=== PATIENT | male | born 1935 | race Caucasian/White ===

== ENCOUNTER 2017-04-15 00:19 | Inpatient (IN) | payer OTHER ==
--- NOTE | 2017-04-15 00:37 | PDOC ---
History of Present Illness - General History Source: Patient Exam Limitations: No Limitations - History of Present Illness Initial Comments: 04/15/17 01:46 The patient is a 82 year old male with no significant PMH who was sent to the emergency department by Marcelle blancas/maria del rosario falling out of his wheelchair at 6PM yesterday with a left hip fracture shown on xray. The patient denies any pain at presentation. The patient states he does not recall falling. The patient reports eating normally yesterday. The patient denies chest pain, shortness of breath, headache and dizziness. Denies fever, chills, nausea, vomit, diarrhea and constipation. Denies dysuria, frequency, urgency and hematuria. Allergies: NKA Past surgical history: None reported. Social history: No reported alcohol, drug, or cigarette use. PCP: Baldo Braga <Janett London - Last Filed: 04/15/17 01:46> <Socorro Martinez - Last Filed: 04/15/17 07:11> - General Chief Complaint: Injury Stated Complaint: FALL Time Seen by Provider: 04/15/17 00:27 Past History <Janett London - Last Filed: 04/15/17 01:46> <Socorro Martinez - Last Filed: 04/15/17 07:11> - Past Medical History Allergies/Adverse Reactions: Allergies Allergy/AdvReac Type Severity Reaction Status Date / Time No Known Allergies Allergy Verified 04/15/17 00:35 Home Medications: Ambulatory Orders Ascorbic Acid [Vitamin C] 500 mg PO DAILY 04/15/17 Aspirin 81 mg PO DAILY 04/15/17 Bupropion HCl [Bupropion HCl Sr] 150 mg PO DAILY 04/15/17 Cyanocobalamin [Vitamin B12 -] 1 tab PO DAILY 04/15/17 Duloxetine HCl 20 mg PO HS 04/15/17 Furosemide [Lasix -] 40 mg PO DAILY 04/15/17 Metoprolol Succinate 50 mg PO DAILY 04/15/17 Sennosides [Senna] 2 tab PO HS 04/15/17 Zinc Sulfate 220 mg PO DAILY 04/15/17 Review of Systems - Review of Systems Able to Perform ROS?: Yes Comments:: 04/15/17 01:47 GENERAL/CONSTITUTIONAL: No fever or chills. No weakness. HEAD, EYES, EARS, NOSE AND THROAT: No change in vision. No ear pain or discharge. No sore throat. CARDIOVASCULAR: No chest pain or shortness of breath. RESPIRATORY: No cough, wheezing, or hemoptysis. GASTROINTESTINAL: No nausea, vomiting, diarrhea or constipation. GENITOURINARY: No dysuria, frequency, or change in urination. MUSCULOSKELETAL: No joint or muscle swelling or pain. No neck or back pain. SKIN: No rash NEUROLOGIC: No headache, vertigo, loss of consciousness, or change in strength/ sensation. ENDOCRINE: No increased thirst. No abnormal weight change. HEMATOLOGIC/LYMPHATIC: No anemia, easy bleeding, or history of blood clots. ALLERGIC/IMMUNOLOGIC: No hives or skin allergy. <Janett London - Last Filed: 04/15/17 01:46> *Physical Exam - Vital Signs Last Vital Signs Temp Pulse Resp BP Pulse Ox 97.6 F 82 20 116/54 100 04/15/17 00:35 04/15/17 00:35 04/15/17 00:35 04/15/17 00:35 04/15/17 00:35 - Physical Exam Comments: 04/15/17 01:47 GENERAL: Awake, alert, and fully oriented, in no acute distress HEAD: No signs of trauma EYES: PERRLA, EOMI, sclera anicteric, conjunctiva clear ENT: Auricles normal inspection, hearing grossly normal, nares patent, oropharynx clear without exudates. Moist mucosa NECK: Normal ROM, supple, no lymphadenopathy, JVD, or masses LUNGS: Breath sounds equal, clear to auscultation bilaterally. No wheezes, and no crackles HEART: Regular rate and rhythm, normal S1 and S2, no murmurs, rubs or gallops ABDOMEN: Soft, nontender, normoactive bowel sounds. No guarding, no rebound. No masses EXTREMITIES: (+) Left hip tenderness. Normal range of motion, no edema. No clubbing or cyanosis. No cords or erythema. NEUROLOGICAL: Cranial nerves II through XII grossly intact. Normal speech, normal gait SKIN: Warm, Dry, normal turgor, no rashes or lesions noted. <Janett London - Last Filed: 04/15/17 01:46> ED Treatment Course - LABORATORY CBC & Chemistry Diagram: 04/15/17 01:09 04/15/17 01:09 - ADDITIONAL ORDERS Additional order review: Laboratory Results 04/15/17 01:09 PT with INR 13.40 H INR 1.19 H 04/15/17 01:09 RBC 2.71 L MCV 91.1 MCHC 31.7 L RDW 17.3 H MPV 7.7 Neutrophils % 78.8 Lymphocytes % 15.0 Monocytes % 5.0 Eosinophils % 0.2 Basophils % 1.0 <Janett London - Last Filed: 04/15/17 01:46> - LABORATORY CBC & Chemistry Diagram: 04/15/17 01:09 04/15/17 01:09 <Socorro Martinez - Last Filed: 04/15/17 07:11> Medical Decision Making - Medical Decision Making 04/15/17 01:26 Pt comes with left hip fracture at [facility], after falling out of the wheelchair. 04/15/17 07:10 Pt has a left hip fracture. He has anemia; we have no baseline for the patient. Pt has no other complaints. Pt will be admitted to the hospitalists. <Socorro Martinez - Last Filed: 04/15/17 07:11> *DC/Admit/Observation/Transfer - Attestations Scribe Attestion: 04/15/17 01:48 Documentation prepared by Janett London, acting as medical dir for Socorro Martinez MD. <Janett London - Last Filed: 04/15/17 01:46> - Discharge Dispostion Admit: Yes <Socorro Martinez - Last Filed: 04/15/17 07:11> Diagnosis at time of Disposition: Anemia, Hypokalemia, Hip fracture - Discharge Dispostion Condition at time of disposition: Poor
[2017-04-15 01:22] LABS: EOS % 0.2 % (0-4.5); HEMATOCRIT 24.7 % (35.4-49); HEMOGLOBIN 7.8 GM/dL (11.7-16.9); MCH 28.9 pg (25.7-33.7); MCHC 31.7 g/dl (32.0-35.9); MEAN CELL VOLUME 91.1 fl (80-96); MEAN PLT VOLUME 7.7 fl (7.5-11.1); NEUT % 78.8 % (42.8-82.8); PLATELET COUNT 414 K/MM3 (134-434); RBC 2.71 M/mm3 (4.00-5.60); RDW 17.3 % (11.9-15.9); WHITE BLOOD COUNT 13.9 K/mm3 (4.0-10.0)
[2017-04-15 01:33] LABS: INR 1.19 (0.82-1.09); PROTHROMBIN TIME (PATIENT) 13.4 SEC (9.98-11.88)
[2017-04-15 01:59] LABS: ALBUMIN 2.9 g/dl (3.4-5.0); ANION GAP 15 (8-16); BILIRUBIN,TOTAL 0.6 mg/dL (0.2-1.0); BLOOD UREA NITROGEN 26 mg/dL (7-18); CALCIUM 8.9 mg/dL (8.5-10.1); CHLORIDE 105 mmol/L (98-107); CO2 19 mmol/L (21-32); CREATININE 1.1 mg/dL (0.7-1.3); GLUCOSE,RANDOM 101 mg/dL (74-106); POTASSIUM 3.2 mmol/L (3.5-5.1); SGOT/AST 10 U/L (15-37); SGPT/ALT 13 U/L (12-78); SODIUM 139 mmol/L (136-145)
[2017-04-15 02:00] LABS: ALK PHOS 77 U/L (45-117); TOT PROT 6.3 g/dl (6.4-8.2)
[2017-04-15] MEDS ORDERED: SODIUM CHLORIDE 0.9% 500 ML INFUS.BAG IV ONE (02:07)
[2017-04-15] MEDS ORDERED: POTASSIUM CHLORIDE TABS 20 MEQ TABLET.ER (FP) PO ONE ×2 (02:08→02:15)
[2017-04-15] MEDS ORDERED: MAGNESIUM SULF 50% (8.12 MEQ/2 ML-1 GM VIAL) IVPB ONE (02:08)
[2017-04-15] MEDS ORDERED: MAGNESIUM SULF 50% (8.12 MEQ/2 ML-1 GM VIAL) ONE (02:16)
--- NOTE | 2017-04-15 03:41 | HP ---
Admitting History and Physical - Primary Care Physician PCP: Baldo Brown - Admission Chief Complaint: Fall, L- Hip pain History of Present Illness: This is a 82 y/o man from the [facility] to the ED with s/p fall out of wheelchair yesterday 1800. Patient has Dementia, unable to provide HPI. Patient had no complaints, earlier, now mild diffuse discomfort increased on movement. Patient denies fever, cough, SOB, CP, AP, N/V/D, constipation. Patient will be admitted to M/S Acute Left Femoral Intertrochanteric Fracture. 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 Cardiovascular: Yes: CAD, HTN, Hyperlipdemia, Other (Cardiomyopathy) Pulmonary: No: Asthma, Bronchitis, Cancer, COPD, O2 Dependent, Pneumonia, Previously Intubated, Pulmonary Embolus, Pulmonary Fibrosis, Sleep Apnea, Other Gastrointestinal: No: Ascites, Cancer, Constipation, Crohn's Disease, Diverticulitis, Diverticulosis, Esophageal Varices, Gastritis, GERD, GI Bleed, Hemorrhoids, Hiatal Hernia, Inflamatory Bowel Disease, Irritable Bowel Disease, Pancreatitis, Peptic Ulcer Disease, Ulcerative Colitis, Other Hepatobiliary: No: Cirrhosis, Cholelithiasis, Cholecystitis, Choledocholithiasis , Hepatitis A, Hepatitis B, Hepatitis C, Other Renal/: No: Renal Failure, Renal Inusuff, BPH, Cancer, Hematuria, Hemodialysis , Neurogenic Bladder, Renal Calculi, UTI, Other Heme/Onc: No: Anemia, B12 Deficiency, Bleeding Disorder, Cancer, Current Chemotherapy, Current Radiation Therapy, Hemochromatosis, Hypercoaguable State, Myeloproliferative Synd, Sickle Cell Disease, Sickle Cell Trait, Thrombocytopenia, Other Infectious Disease: No: AIDS, C-Diff, Herpes Zoster, HIV, MRSA, STD's, Tuberculosis, VREF, Other Psych: Yes: Depression Musculoskeletal: Yes: Other Rheumatology: No: Fibromyalgia, Gout, Lupus, Rheumatoid Arthritis, Sarcoidosis, Vasculitis, Other ENT: No: Allergic Rhinitis, Sinusitis, Other Endocrine: Yes: Diabetes Mellitus Dermatology: No: Basal Cell, Cellulitis, Eczema, Melanoma, Psoriasis, Squamous Cell, Other - Past Surgical History Past Surgical History: Yes: Joint Replacement (Right Hip Pinning) - Advance Directives Advance Directives: Yes: Living Will, Health Care Proxy, DNR (DNI), MOLST - Smoking History Smoking history: Never smoked Have you smoked in the past 12 months: No - Alcohol/Substance Use Hx Alcohol Use: No History of Substance Use: reports: None - Social History Usual Living Arrangement: Yes: Custodial ADL: Support Services 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: No Home Medications - Allergies Allergies/Adverse Reactions: Allergies Allergy/AdvReac Type Severity Reaction Status Date / Time No Known Allergies Allergy Verified 04/15/17 00:35 - Home Medications Home Medications: Ambulatory Orders Ascorbic Acid [Vitamin C] 500 mg PO DAILY 04/15/17 Aspirin 81 mg PO DAILY 04/15/17 Bupropion HCl [Bupropion HCl Sr] 150 mg PO DAILY 04/15/17 Cyanocobalamin [Vitamin B12 -] 1 tab PO DAILY 04/15/17 Duloxetine HCl 20 mg PO HS 04/15/17 Furosemide [Lasix -] 40 mg PO DAILY 04/15/17 Metoprolol Succinate 50 mg PO DAILY 04/15/17 Sennosides [Senna] 2 tab PO HS 04/15/17 Zinc Sulfate 220 mg PO DAILY 04/15/17 Family Disease History - Family Disease History Family History: Unable to Obtain Review of Systems Unable to obtain ROS, reason: Dementia Hx Physical Examination Vital Signs: Vital Signs Temperature 97.6 F 04/15/17 00:35 Pulse Rate 86 04/15/17 01:58 Respiratory Rate 20 04/15/17 00:35 Blood Pressure 122/88 04/15/17 01:58 O2 Sat by Pulse Oximetry (%) 96 04/15/17 01:58 Constitutional: Yes: No Distress, Calm, Thin Eyes: Yes: WNL, Conjunctiva Clear, EOM Intact, PERRL HENT: Yes: WNL, Atraumatic, Normocephalic Neck: Yes: WNL, Supple, Trachea Midline Cardiovascular: Yes: WNL, Regular Rate and Rhythm, S1, S2 Respiratory: Yes: WNL, Regular, CTA Bilaterally Gastrointestinal: Yes: WNL, Normal Bowel Sounds, Soft Renal/: Yes: Incontinence Breast(s): Yes: WNL Musculoskeletal: Yes: Other (Left Hip pain to palpation/movement) Extremities: Yes: Deformity (Left Hip) Edema: No Peripheral Pulses WNL: Yes Integumentary: Yes: WNL Neurological: Yes: Alert, Confusion, Cran Nerves II-XII Intact ...Motor Strength: WNL Psychiatric: Yes: WNL, Alert Labs: CBC, BMP 04/15/17 01:09 04/15/17 01:09 Intake & Output 04/12/17 04/13/17 04/14/17 04/15/17 23:59 23:59 23:59 23:59 Weight 65.771 kg Imaging - Results Chest X-ray: Pending X-ray: Report Reviewed (Acute left femoral intertrochanteric fracture with varus deformity) EKG: Image Reviewed (NSR 86bpm, inferior posterior infarct age undetermined) Problem List - Problems (1) Hip fracture Code(s): S72.009A - FRACTURE OF UNSP PART OF NECK OF UNSP FEMUR, INIT (2) Hypokalemia Code(s): E87.6 - HYPOKALEMIA (3) Anemia Code(s): D64.9 - ANEMIA, UNSPECIFIED (4) Diabetes mellitus Code(s): E11.9 - TYPE 2 DIABETES MELLITUS WITHOUT COMPLICATIONS (5) CAD (coronary artery disease) Code(s): I25.10 - ATHSCL HEART DISEASE OF [place] CORONARY ARTERY W/O ANG PCTRS (6) HLD (hyperlipidemia) Code(s): E78.5 - HYPERLIPIDEMIA, UNSPECIFIED (7) Dementia Code(s): F03.90 - UNSPECIFIED DEMENTIA WITHOUT BEHAVIORAL DISTURBANCE (8) DVT prophylaxis Code(s): [id number] - Assessment/Plan This is a 82 y/o man with a past medical history of HTN. Admitted to M/S for Left Hip Fracture, Hypokalemia, Anemia. Plan: 1. Left Hip Fracture - secondary to fall out of wheelchair - L Hip Xay- Left femoral neck fx - Appreciate Ortho Consult - keep NPO - Bedrest - Morphine Sulfate prn - No DVT prophylaxis secondary to active anemia 2. Hypokalemia - Repleted in ED - Repeat BMP in am 3. Anemia - ? baseline - Will transfuse if Hgb < 7.0 - FE, TIBC, Ferritin levels ordered - Stool Occult 4. Hypertension - Monitor BP - Continue BB with parameters 5. FEN - Po fluids as tolerated - Replete lytes - NPO 6. DVT Prophylaxis - SCDs - No ACs secondary to Anemia Code Status: MOLST, DNR/DNI, HCP, Living Will Dispo: Requires Inpatient Care Visit type - Emergency Visit Emergency Visit: Yes ED Registration Date: 04/15/17 Care time: The patient presented to the Emergency Department on the above date and was hospitalized for further evaluation of their emergent condition. - New Patient This patient is new to me today: Yes Date on this admission: 04/15/17 - Critical Care Critical Care patient: No
[2017-04-15 05:59] VITALS: BMI 20.2
[2017-04-15 08:19] LABS: BASO % 0.3 % (0-2.0); EOS % 0.1 % (0-4.5); HEMATOCRIT 23.6 % (35.4-49); HEMOGLOBIN 7.6 GM/dL (11.7-16.9); LYMPH % 13.2 % (8-40); MCH 29.4 pg (25.7-33.7); MCHC 32.2 g/dl (32.0-35.9); MEAN CELL VOLUME 91.3 fl (80-96); MEAN PLT VOLUME 7.7 fl (7.5-11.1); MONO % 4.9 % (3.8-10.2); NEUT % 81.5 % (42.8-82.8); PLATELET COUNT 384 K/MM3 (134-434); RBC 2.58 M/mm3 (4.00-5.60); RDW 17.2 % (11.9-15.9)
[2017-04-15 08:41] LABS: CHLORIDE 107 mmol/L (98-107); POTASSIUM 3.5 mmol/L (3.5-5.1); SODIUM 139 mmol/L (136-145)
[2017-04-15 08:53] LABS: ANION GAP 11 (8-16); BLOOD UREA NITROGEN 27 mg/dL (7-18); CALCIUM 8.9 mg/dL (8.5-10.1); CO2 21 mmol/L (21-32); GLUCOSE,RANDOM 125 mg/dL (74-106); MAGNESIUM 2.9 mg/dL (1.8-2.4); PHOSPHOROUS 4.1 mg/dL (2.5-4.9)
[2017-04-15] MEDS ORDERED: DEXTROSE 5%-0.45% SALINE 1,000 ML IV SCH (10:30)
[2017-04-15] MEDS: morphine SULFATE 4 MG/ML VIAL IVPUSH PRN ×2 (11:30→22:57)
[2017-04-15] MEDS ORDERED: D5-1/2NS+20 MEQ KCL - 20 MEQ/1,000 ML INFUS.BAG IV SCH (12:30)
--- NOTE | 2017-04-15 15:26 | PN ---
Progress Note (short form) - Note Progress Note: Consult dictated. Plan for IM nail when medically optimized. Transfusion pending, anticipate continued blood loss from femur fracture and then more blood loss during surgery.
[2017-04-15 16:38] LABS: URINE APPEARANCE SLCLOUDY; URINE BILIRUBIN NEGATIVE (NEGATIVE); URINE BLOOD 2+ (NEGATIVE); URINE COLOR YELLOW; URINE GLUCOSE (UA) NEGATIVE (NEGATIVE); URINE KETONE TRACE (NEGATIVE); URINE NITRITE NEGATIVE (NEGATIVE); URINE PROTEIN NEGATIVE (NEGATIVE); URINE UROBILINOGEN NEGATIVE mg/dL (0.2-1.0)
--- NOTE | 2017-04-15 17:13 | EKG ---
Test Reason : Blood Pressure : / mmHG Vent. Rate : 086 BPM Atrial Rate : 086 BPM P-R Int : 168 ms QRS Dur : 112 ms QT Int : 486 ms P-R-T Axes : 022 092 -07 degrees QTc Int : 581 ms POOR DATA QUALITY, INTERPRETATION MAY BE ADVERSELY AFFECTED NORMAL SINUS RHYTHM RIGHTWARD AXIS POSSIBLE INFEROPOSTERIOR INFARCT , AGE UNDETERMINED ABNORMAL ECG NO PREVIOUS ECGS AVAILABLE Confirmed by DEBORA GUTIERREZ, MAURI ([id number]) on 04/15/2017 5:13:36 PM Referred By: Confirmed By:MAURI CAZARES MD
[2017-04-15 17:20] LABS: URINE LEUK ESTERASE 2+ (NEGATIVE)
[2017-04-15 17:22] LABS: EPI CELLS RARE /HPF (FEW); URINE BACTERIA FEW /hpf (NONE SEEN)
--- NOTE | 2017-04-15 19:51 | CON.CARD ---
Consult Consult Specialty:: Cardiology Referred by:: Janice Layne MD Reason for Consultation:: Pre-operative cardiovascular evaluation - History of Present Illness Chief Complaint: Post fall left hip discomfort History of Present Illness: This is a 82 y/o male resident of [facility] with h/o dementia, CAD, HTN, Hyperlipdemia, cardiomyopathy presented s/p fall out of wheelchair. Patient has Dementia, unable to provide HPI. Patient reports mild diffuse left hip discomfort increased on movement, found to have Acute Left Femoral Intertrochanteric Fracture, planned for left IM gamma nail. 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 Cardio/Vascular: Yes: CAD, HTN, Hyperlipdemia, Other (Cardiomyopathy) Pulmonary: No: Asthma, Bronchitis, Cancer, COPD, O2 Dependent, Pneumonia, Previously Intubated, Pulmonary Embolus, Pulmonary Fibrosis, Sleep Apnea, Other Gastrointestinal: No: Ascites, Cancer, Constipation, Crohn's Disease, Diverticulitis, Diverticulosis, Esophageal Varices, Gastritis, GERD, GI Bleed, Hemorrhoids, Hiatal Hernia, Inflamatory Bowel Disease, Irritable Bowel Disease, Pancreatitis, Peptic Ulcer Disease, Ulcerative Colitis, Other Hepatobiliary: No: Cirrhosis, Cholelithiasis, Cholecystitis, Choledocholithiasis , Hepatitis A, Hepatitis B, Hepatitis C, Other Renal/: No: Renal Failure, Renal Inusuff, BPH, Cancer, Hematuria, Hemodialysis , Neurogenic Bladder, Renal Calculi, UTI, Other Infectious Disease: No: AIDS, C-Diff, Herpes Zoster, HIV, MRSA, STD's, Tuberculosis, VREF, Other Psych: Yes: Depression Musculoskeletal: Yes: Other Rheumatology: No: Fibromyalgia, Gout, Lupus, Rheumatoid Arthritis, Sarcoidosis, Vasculitis, Other ENT: No: Allergic Rhinitis, Sinusitis, Other Endocrine: Yes: Diabetes Mellitus Dermatology: No: Basal Cell, Cellulitis, Eczema, Melanoma, Psoriasis, Squamous Cell, Other - Past Surgical History Past Surgical History: Yes: Joint Replacement (Right Hip Pinning) - Alcohol/Substance Use Hx Alcohol Use: No History of Substance Use: reports: None - Smoking History Smoking history: Never smoked Have you smoked in the past 12 months: No - Social History ADL: Support Services 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: No Home Medications - Allergies Allergies/Adverse Reactions: Allergies Allergy/AdvReac Type Severity Reaction Status Date / Time No Known Allergies Allergy Verified 04/15/17 00:35 - Home Medications Home Medications: Ambulatory Orders Ascorbic Acid [Vitamin C] 500 mg PO DAILY 04/15/17 Aspirin 81 mg PO DAILY 04/15/17 Bupropion HCl [Bupropion HCl Sr] 150 mg PO DAILY 04/15/17 Cyanocobalamin [Vitamin B12 -] 1 tab PO DAILY 04/15/17 Duloxetine HCl 20 mg PO HS 04/15/17 Furosemide [Lasix -] 40 mg PO DAILY 04/15/17 Metoprolol Succinate 50 mg PO DAILY 04/15/17 Sennosides [Senna] 2 tab PO HS 04/15/17 Zinc Sulfate 220 mg PO DAILY 04/15/17 Review of Systems Unable to obtain ROS, reason: Dementia Vital Signs: Vital Signs Temperature 97.3 F L 04/15/17 08:57 Pulse Rate 84 04/15/17 08:57 Respiratory Rate 18 04/15/17 08:57 Blood Pressure 113/62 04/15/17 08:57 O2 Sat by Pulse Oximetry (%) 100 04/15/17 09:00 Constitutional: Yes: No Distress, Calm Neck: Yes: Supple Respiratory: Yes: Regular, Diminished Gastrointestinal: Yes: Normal Bowel Sounds, Soft Cardiovascular: Yes: Regular Rate and Rhythm JVD: No Carotid Bruit: No Heart Sounds: Yes: S1, S2 Edema: No - Other Data Labs, Other Data: CBC, BMP 04/15/17 06:50 04/15/17 06:50 INR, PTT INR 1.19 (0.82-1.09) H 04/15/17 01:09 NSR 86bpm, inferior posterior infarct age undetermined similar to previous 2016 Imaging - Results Chest X-ray: Report Reviewed (NAD) X-ray: Report Reviewed ( (Acute left femoral intertrochanteric fracture with varus deformity)) Problem List - Problems (1) Pre-operative cardiovascular examination Code(s): Z01.810 - ENCOUNTER FOR PREPROCEDURAL CARDIOVASCULAR EXAMINATION (2) Hypertensive cardiomyopathy Code(s): I11.9 - HYPERTENSIVE HEART DISEASE WITHOUT HEART FAILURE; I43 - CARDIOMYOPATHY IN DISEASES CLASSIFIED ELSEWHERE Qualifiers: Heart failure presence: without heart failure Qualified Code(s): I11.9 - Hypertensive heart disease without heart failure; I43 - Cardiomyopathy in diseases classified elsewhere; I43 - Cardiomyopathy in diseases classified elsewhere; I43 - Cardiomyopathy in diseases classified elsewhere; I43 - Cardiomyopathy in diseases classified elsewhere (3) Anemia Code(s): D64.9 - ANEMIA, UNSPECIFIED Qualifiers: Anemia type: unspecified type Qualified Code(s): D64.9 - Anemia, unspecified (4) CAD (coronary artery disease) Code(s): I25.10 - ATHSCL HEART DISEASE OF [place] CORONARY ARTERY W/O ANG PCTRS Qualifiers: Coronary Disease-Associated Artery/Lesion type: [place] artery [place] vs. transplanted heart: [place] heart Associated angina: without angina Qualified Code(s): I25.10 - Atherosclerotic heart disease of [place] coronary artery without angina pectoris (5) Dementia Code(s): F03.90 - UNSPECIFIED DEMENTIA WITHOUT BEHAVIORAL DISTURBANCE Qualifiers: Dementia type: unspecified type Dementia behavioral disturbance: without behavioral disturbance Qualified Code(s): F03.90 - Unspecified dementia without behavioral disturbance (6) Diabetes mellitus Code(s): E11.9 - TYPE 2 DIABETES MELLITUS WITHOUT COMPLICATIONS Qualifiers: Diabetes mellitus type: type 2 (7) HLD (hyperlipidemia) Code(s): E78.5 - HYPERLIPIDEMIA, UNSPECIFIED Qualifiers: Hyperlipidemia type: pure hypercholesterolemia Qualified Code(s): E78.00 - Pure hypercholesterolemia, unspecified; E78.0 - Pure hypercholesterolemia (8) Hip fracture Code(s): S72.009A - FRACTURE OF UNSP PART OF NECK OF UNSP FEMUR, INIT Qualifiers: Encounter type: initial encounter (9) Hypokalemia Code(s): E87.6 - HYPOKALEMIA Assessment/Plan 1. Pre-operative cardiovascular evaluation planned for left femoral IM nail 2. Anemia 3. Hypokalemia 4. HTN 5. CAD, angina pectoris 6. Hyperlipidemia 7. Dementia P:1. Transfuse to maintain Hgb>8.0 2. Replete K 3. Hold ASA 81 qd, continue Toprol XL 50 qd, Altace 2.5 qd, hold Lasix as hemodynamics tolerate 4. Given absence of sxs of acute coronary syndrome, decompensated CHF or malignant arrhythmia, may proceed with ORIF from CV standpoint without further testing 5. DVT prophylaxis, thank you for consultative opportunity
[2017-04-15] MEDS ORDERED: PT OWN MED DRAWER 7, Y5N ONE (21:54)
[2017-04-15] MEDS ORDERED: DULoxetine HCL 20 MG CAPSULE.DR (FP) PO SCH (22:00)
[2017-04-15] MEDS ORDERED: SENNOSIDES 8.6MG TABLET (FP) PO SCH (22:00)
--- NOTE | 2017-04-15 23:12 | CONS ---
DATE OF CONSULTATION: 04/15/2017 CHIEF COMPLAINT: Left hip fracture. HISTORY OF PRESENT ILLNESS: This is an 82-year-old gentleman who lives at [facility] who fell out of a wheelchair last evening. He was brought to the emergency room and was found to have a hip fracture. The patient, himself, does not recall the incident secondary to dementia. He is lying in bed now. He is complaining of some pain in the left hip. He denies any pain elsewhere. He denies any radiating pain, numbness, or tingling. PAST MEDICAL HISTORY: Includes dementia, CAD, hypertension, hyperlipidemia, cardiomyopathy, anemia of unknown duration. PHYSICAL EXAMINATION: General: This is an elderly male, in no acute distress. He is seen lying comfortably in bed. Extremities: The left lower extremity is shortened, externally rotated. He is tender about the hip joint. Nontender about the knee. Nontender about the ankle. Sensation is grossly intact to light touch, 1+ DP pulse. EHL, FHL, tibialis anterior, gastrocsoleus are intact, but weak. LABORATORY: Results are reviewed and revealed a hematocrit of 23.6. Radiographs are reviewed demonstrating a displaced left hip fracture. The fracture has a cervical component inferiorly and goes more towards the intertrochanteric pattern superiorly. There is a contralateral intramedullary nail in place. ASSESSMENT: Left hip fracture. PLAN: I reviewed the findings with the patient as best as he could understand. I also called his health care proxy, Mr. Batres, and reviewed the findings. We discussed this is similar to the last side, which he had several months ago. He now has a left hip fracture. I do believe this is best treated with intramedullary nail. We discussed that he is a fairly high risk patient for anesthesia. We would have him medically optimized prior to proceeding with the procedure; however, he is at risk for heart attack, stroke, and . We reviewed the procedure itself. I reviewed the postoperative rehabilitation protocol. I addressed all of the patient's and his proxy's concerns and questions. We reviewed the surgical risks in detail including bleeding, infection, neurovascular injury, need for further surgery, postoperative pain and stiffness, nonunion, malunion, hardware failure, or cut out. I reviewed the medical risks such as heart attack, stroke, DVT, PE, and . The proxy did consent to proceed with the procedure once medically optimized. Lisa [id number]
[2017-04-16 00:59] LABS: BASO % 0.2 % (0-2.0); EOS % 0.2 % (0-4.5); HEMATOCRIT 25.9 % (35.4-49); HEMOGLOBIN 8.3 GM/dL (11.7-16.9); LYMPH % 18.6 % (8-40); MCH 29.1 pg (25.7-33.7); MEAN CELL VOLUME 90.9 fl (80-96); MEAN PLT VOLUME 7.9 fl (7.5-11.1); MONO % 7.3 % (3.8-10.2); NEUT % 73.7 % (42.8-82.8); PLATELET COUNT 340 K/MM3 (134-434); RBC 2.85 M/mm3 (4.00-5.60); RDW 17.5 % (11.9-15.9)
[2017-04-16 06:11] LABS: SERUM IRON SATURATION 14 % (15-55); TOTAL IRON BINDING CAPACITY 161 ug/dL (250-450); UIBC 138 ug/dL (111-343)
[2017-04-16 07:57] LABS: ALBUMIN 2.7 g/dl (3.4-5.0); ANION GAP 10 (8-16); BILIRUBIN,TOTAL 0.5 mg/dL (0.2-1.0); BLOOD UREA NITROGEN 21 mg/dL (7-18); CALCIUM 8.5 mg/dL (8.5-10.1); CHLORIDE 109 mmol/L (98-107); CO2 21 mmol/L (21-32); CREATININE 0.9 mg/dL (0.7-1.3); GLUCOSE,RANDOM 145 mg/dL (74-106); SGPT/ALT 13 U/L (12-78); SODIUM 140 mmol/L (136-145); TOT PROT 6.2 g/dl (6.4-8.2)
[2017-04-16 08:02] LABS: ALK PHOS 70 U/L (45-117); SGOT/AST 15 U/L (15-37)
[2017-04-16] MEDS ORDERED: BUPIVACAINE HCL/PF 0.5% (5MG/ML) 10 ML VIAL ONE (08:57)
[2017-04-16] MEDS ORDERED: ETOMIDATE 20 MG/10 ML AMPUL IVPUSH ONE (09:31)
[2017-04-16] MEDS ORDERED: PROPOFOL 20 ML ONE ×2 (09:36)
[2017-04-16] MEDS ORDERED: ceFAZolin SODIUM 1 GM VIAL ONE (09:46)
[2017-04-16] MEDS ORDERED: ceFAZolin SODIUM 1 GM VIAL IVPB ONE (09:50)
[2017-04-16] MEDS ORDERED: FUROSEMIDE 40 MG TABLET (FP) PO SCH (10:00)
[2017-04-16] MEDS ORDERED: CYANOCOBALAMIN 1,000 MCG TABLET (FP) PO SCH (10:00)
[2017-04-16] MEDS ORDERED: ZINC SULFATE 220 MG CAPSULE (FP) PO SCH (10:00)
[2017-04-16] MEDS ORDERED: METOPROLOL SUCCINATE 50 MG TAB.SR.24H (FP) PO SCH (10:00)
[2017-04-16] MEDS ORDERED: METOPROLOL TARTRATE 5 MG/5 ML VIAL ONE (10:50)
--- NOTE | 2017-04-16 11:19 | OP ---
Operative Note - Note: Operative Date: 04/16/17 Pre-Operative Diagnosis: left hip basicervical/intertrochanteric fracture Operation: left hip cephalomedullary nail insertion Implants: goran gamma nail [id number] degree, [id number] proximal lag screw, 5mm x2 distal locking screws Post-Operative Diagnosis: Same as Pre-op Surgeon: Kin Lechuga Anesthesiologist/INTEGRATION TECHNICIAN: Monserrat Lopez Anesthesia: General Estimated Blood Loss (mls): 150 Operative Report Dictated: Yes
[2017-04-16] MEDS ORDERED: ONDANSETRON 4 MG/2 ML VIAL IVPUSH PRN (11:20)
[2017-04-16] MEDS ORDERED: morphine SULFATE 4 MG/ML VIAL IVPUSH PRN (11:26)
[2017-04-16] MEDS ORDERED: LACTATED RINGERS SOLUTION 1,000 ML IV SCH (11:30)
[2017-04-16] MEDS: D5-1/2NS+20 MEQ KCL - 20 MEQ/1,000 ML INFUS.BAG IV SCH ×2 (11:45→22:32)
[2017-04-16 12:30] LABS: BASO % 0.3 % (0-2.0); EOS % 0.2 % (0-4.5); HEMATOCRIT 27.9 % (35.4-49); HEMOGLOBIN 8.4 GM/dL (11.7-16.9); LYMPH % 12.7 % (8-40); MCH 28.5 pg (25.7-33.7); MCHC 30.3 g/dl (32.0-35.9); MEAN CELL VOLUME 94.1 fl (80-96); MEAN PLT VOLUME 7.7 fl (7.5-11.1); MONO % 7.3 % (3.8-10.2); NEUT % 79.5 % (42.8-82.8); PLATELET COUNT 329 K/MM3 (134-434); RBC 2.96 M/mm3 (4.00-5.60); RDW 18.1 % (11.9-15.9); WHITE BLOOD COUNT 15.6 K/mm3 (4.0-10.0)
[2017-04-16] MEDS ORDERED: CEFTRIAXONE 500 MG in DEXTROSE 5%-WATER - 50 ML IVPB SCH (12:45)
--- NOTE | 2017-04-16 13:07 | PN ---
Progress Note (short form) - Note Progress Note: just came back from or comfortable chart reviewed Vital Signs Temp 97.5 F L 04/16/17 12:30 Pulse 90 04/16/17 12:30 Resp 18 04/16/17 12:30 BP 108/56 04/16/17 12:30 Pulse Ox 100 04/16/17 12:30 Intake & Output 04/15/17 04/16/17 04/16/17 23:59 11:59 23:59 Intake Total 960 1300 Balance 960 1300 Intake: IV 600 1300 D5-1/2NS+20 MEQ KCL - 20 600 1100 meq In 1,000 ml @ 100 mls /hr IV ASDIR [facility] Rx#: [id number] IVPB 20 [place]acked [place] 340 Other: Voiding Method Incontinent Incontinent # Unmeasured Voids Void 1 Active Medications Bupropion HCl (Wellbutrin Xl -) 150 mg PO DAILY [facility] Calcium Carbonate/Cholecalciferol (Os-Tab 500+D -) 1 tab PO BID [facility] Cyanocobalamin (Vitamin B12 -) 1,000 mcg PO DAILY [facility] Duloxetine HCl (Cymbalta -) 20 mg PO HS [facility] Enoxaparin Sodium (Lovenox -) 40 mg SQ DAILY [facility] Ferrous Sulfate (Feosol -) 325 mg PO BIDWM [facility] Potassium Chloride/Dextrose/Sod Cl (D5-1/2ns+20 Meq Kcl -) 20 meq in 1,000 mls @ 100 mls/hr IV ASDIR [facility] Last Admin: 04/16/17 11:45 Dose: 100 mls Cefazolin Sodium (Ancef -) 1 gm in 10 mls @ 120 mls/hr IVPUSH Q8H-IV [facility] Stop: 04/17/17 17:59 Metoprolol Succinate (Toprol Xl -) 50 mg PO DAILY [facility] Morphine Sulfate (Morphine Sulfate) 1 mg IVPUSH Q4H PRN PRN Reason: PAIN Ondansetron HCl (Zofran Injection) 4 mg IVPUSH Q6H PRN PRN Reason: NAUSEA AND/OR VOMITING Senna (Senna -) 2 tab PO HS [facility] Zinc Sulfate (Orazinc -) 220 mg PO DAILY [facility] CBC, BMP 04/16/17 12:26 04/16/17 06:00 u/a - noted u/c - pending Physical Examination awake/ comfortable poor historian lungs- clear cvs- s1, s2 rrr abd - soft ext- dressing + a/p s/p left gamma nailing continue present care u/c pending on ancef f/u labs will follow Problem List - Problems (1) Anemia Code(s): D64.9 - ANEMIA, UNSPECIFIED Qualifiers: Anemia type: unspecified type Qualified Code(s): D64.9 - Anemia, unspecified (2) CAD (coronary artery disease) Code(s): I25.10 - ATHSCL HEART DISEASE OF [place] CORONARY ARTERY W/O ANG PCTRS Qualifiers: Coronary Disease-Associated Artery/Lesion type: [place] artery [place] vs. transplanted heart: [place] heart Associated angina: without angina Qualified Code(s): I25.10 - Atherosclerotic heart disease of [place] coronary artery without angina pectoris (3) Dementia Code(s): F03.90 - UNSPECIFIED DEMENTIA WITHOUT BEHAVIORAL DISTURBANCE Qualifiers: Dementia type: unspecified type Dementia behavioral disturbance: without behavioral disturbance Qualified Code(s): F03.90 - Unspecified dementia without behavioral disturbance (4) Diabetes mellitus Code(s): E11.9 - TYPE 2 DIABETES MELLITUS WITHOUT COMPLICATIONS Qualifiers: Diabetes mellitus type: type 2 (5) Hip fracture Code(s): S72.009A - FRACTURE OF UNSP PART OF NECK OF UNSP FEMUR, INIT Qualifiers: Encounter type: initial encounter
--- NOTE | 2017-04-16 14:27 | PN ---
Progress Note, Physician History of Present Illness: s/p left hip IM gamma nail without clinical sequelae. - Current Medication List Current Medications: Active Medications Bupropion HCl (Wellbutrin Xl -) 150 mg PO DAILY [facility] Calcium Carbonate/Cholecalciferol (Os-Tab 500+D -) 1 tab PO BID [facility] Cyanocobalamin (Vitamin B12 -) 1,000 mcg PO DAILY [facility] Duloxetine HCl (Cymbalta -) 20 mg PO HS [facility] Enoxaparin Sodium (Lovenox -) 40 mg SQ DAILY [facility] Ferrous Sulfate (Feosol -) 325 mg PO BIDWM [facility] Potassium Chloride/Dextrose/Sod Cl (D5-1/2ns+20 Meq Kcl -) 20 meq in 1,000 mls @ 100 mls/hr IV [facility]IR [facility] Last Admin: 04/16/17 11:45 Dose: 100 mls Cefazolin Sodium (Ancef -) 1 gm in 10 mls @ 120 mls/hr IVPUSH Q8H-IV [facility] Stop: 04/17/17 17:59 Metoprolol Succinate (Toprol Xl -) 50 mg PO DAILY [facility] Morphine Sulfate (Morphine Sulfate) 1 mg IVPUSH Q4H PRN PRN Reason: PAIN Ondansetron HCl (Zofran Injection) 4 mg IVPUSH Q6H PRN PRN Reason: NAUSEA AND/OR VOMITING Senna (Senna -) 2 tab PO HS [facility] Zinc Sulfate (Orazinc -) 220 mg PO DAILY [facility] - Objective Vital Signs: Vital Signs Temperature 97.5 F L 04/16/17 12:30 Pulse Rate 92 H 04/16/17 13:31 Respiratory Rate 18 04/16/17 13:31 Blood Pressure 97/57 04/16/17 13:31 O2 Sat by Pulse Oximetry (%) 100 04/16/17 12:30 Constitutional: Yes: No Distress, Calm, Thin Neck: Yes: Supple Cardiovascular: Yes: Regular Rate and Rhythm Respiratory: Yes: Regular, Diminished Gastrointestinal: Yes: Soft, Hypoactive Bowel Sounds Edema: No Labs: CBC, BMP 04/16/17 12:26 04/16/17 06:00 INR, PTT INR 1.19 (0.82-1.09) H 04/15/17 01:09 Problem List - Problems (1) Hypertensive cardiomyopathy Code(s): I11.9 - HYPERTENSIVE HEART DISEASE WITHOUT HEART FAILURE; I43 - CARDIOMYOPATHY IN DISEASES CLASSIFIED ELSEWHERE Qualifiers: Heart failure presence: without heart failure Qualified Code(s): I11.9 - Hypertensive heart disease without heart failure; I43 - Cardiomyopathy in diseases classified elsewhere; I43 - Cardiomyopathy in diseases classified elsewhere; I43 - Cardiomyopathy in diseases classified elsewhere; I43 - Cardiomyopathy in diseases classified elsewhere (2) Anemia Code(s): D64.9 - ANEMIA, UNSPECIFIED Qualifiers: Anemia type: unspecified type Qualified Code(s): D64.9 - Anemia, unspecified (3) CAD (coronary artery disease) Code(s): I25.10 - ATHSCL HEART DISEASE OF [place] CORONARY ARTERY W/O ANG PCTRS Qualifiers: Coronary Disease-Associated Artery/Lesion type: [place] artery [place] vs. transplanted heart: [place] heart Associated angina: without angina Qualified Code(s): I25.10 - Atherosclerotic heart disease of [place] coronary artery without angina pectoris (4) Dementia Code(s): F03.90 - UNSPECIFIED DEMENTIA WITHOUT BEHAVIORAL DISTURBANCE Qualifiers: Dementia type: unspecified type Dementia behavioral disturbance: without behavioral disturbance Qualified Code(s): F03.90 - Unspecified dementia without behavioral disturbance (5) Diabetes mellitus Code(s): E11.9 - TYPE 2 DIABETES MELLITUS WITHOUT COMPLICATIONS Qualifiers: Diabetes mellitus type: type 2 (6) HLD (hyperlipidemia) Code(s): E78.5 - HYPERLIPIDEMIA, UNSPECIFIED Qualifiers: Hyperlipidemia type: pure hypercholesterolemia Qualified Code(s): E78.00 - Pure hypercholesterolemia, unspecified; E78.0 - Pure hypercholesterolemia (7) Hip fracture Code(s): S72.009A - FRACTURE OF UNSP PART OF NECK OF UNSP FEMUR, INIT Qualifiers: Encounter type: initial encounter Assessment/Plan 1. POD#0 left hip IM nail 2. Anemia 3. Hypokalemia resolved 4. HTN 5. CAD, angina pectoris 6. Hyperlipidemia 7. Dementia P:1. Transfuse to maintain Hgb>8.0 2. Resume ASA 81 qd once post-op hemostasis assured, continue Toprol XL 50 qd, Altace 2.5 qd, hold Lasix as hemodynamics tolerate 3. Analgesia as needed 4. DVT prophylaxis
--- NOTE | 2017-04-16 15:54 | OP ---
DATE OF OPERATION: 04/16/2017 PREOPERATIVE DIAGNOSIS: Left intertrochanteric/basicervical hip fracture. POSTOPERATIVE DIAGNOSIS: Left intertrochanteric/basicervical hip fracture. PROCEDURE: Left hip intramedullary nail. SURGEON: Kin Lechuga MD ANESTHESIA: General. POSTOPERATIVE CONDITION: Stable. COMPLICATIONS: None. IMPLANTS: [place] Gamma nail 420-mm length x 10 with 125-degree neck angle, 105 -mm proximal lag screw, 5-mm distal locking screws x2. INDICATIONS: This is a pleasant elderly gentleman with dementia who was unable to describe a mechanism of injury. He had fallen out of a wheelchair and was found to have a left hip fracture. He had previously undergone fixation of a right hip fracture. I reviewed the findings with the patient as well as the healthcare proxy. I recommended fixation to allow for early mobilization, pain management. We discussed operative risks in detail including bleeding, infection, neurovascular injury, need for further surgery, postoperative pain and stiffness, nonunion, malunion, hardware failure or cutout. We discussed medical risks such as heart attack, stroke, DVT, PE, . I addressed the use of perioperative antibiotic prophylaxis. I discussed the use of perioperative DVT prophylaxis. I addressed all the patient's healthcare proxy's questions. They voiced understanding and elected to proceed. PROCEDURE: The patient was brought to the operating room where general anesthesia was administered. The patient was placed onto the fracture table, taking care to pad the bony prominences. He was noted to have some early changes in the sacral decubitus region. There were no full thickness ulcers noted. The left lower extremity was then placed into position of traction, adduction and internal rotation. The right lower extremity had to be placed in the scissor position as he was not able to abduct or rotate with much range of motion. The patient was then prepped and draped in the usual sterile fashion. A preoperative dose of antibiotics was given and the usual time-out procedure was performed. An incision was now planned out just proximal to the greater trochanter. A stab wound was made using a 10 blade. Guidewire was now placed down through the tip of the greater trochanter into the medullary canal. Guidewire placement was confirmed fluoroscopically in 2 planes. An opening reamer was now passed down to the level of the lesser trochanter. The long guidewire was now inserted through this opening. The wire was inserted down to the level of the distal physeal scar as visualized on 2-plane fluoroscopy. The guidewire was now measured and a 420-mm nail was chosen. Given the wide diameter of the canal, it was felt that reaming was not necessary for this case. The nail was then inserted under fluoroscopic guidance to the correct position. The trocar was now inserted through the jig proximally where incision was made and the trocar was passed down to the level of the lateral femoral cortex. A guidewire was now passed through the center of the femoral neck into the center of the femoral head as confirmed fluoroscopically in 2 planes. The guidewire was measured and a 105-mm proximal lag screw was chosen. This was then reamed. The lag screw was inserted again under fluoroscopic guidance into satisfactory position. Compression was applied along the screw. The set screw was now inserted all the way down and then backed off a quarter turn to allow for further compression. The jig was now removed. Fluoroscopy was used to confirm both fracture reduction and hardware placement which were both satisfactory. Attention was now turned distally. Utilizing perfect [place] technique, the 2 distal locking holes were identified. Incisions were made over both with blunt spreading down to the bone. Both holes were then drilled. The initial screws inserted were a little short so longer screws were then inserted, fixing the nail distally. Both screws were confirmed to be placed correctly under fluoroscopic guidance. At this point, the entire construct was again examined fluoroscopically. Both fracture reduction and hardware placement were satisfactory. The wounds were irrigated. Deep tissue was approximated using 2-0 Vicryl. The subcutaneous tissue was approximated using 2-0 Vicryl. The skin was closed using 3-0 nylon. Sterile dressings were placed. The patient was extubated and transferred to the recovery room in stable condition. Lisa [id number] MTDD
[2017-04-16] MEDS: FERROUS SO4 325 MG TABLET (FP) PO SCH (17:24)
[2017-04-16] MEDS: morphine SULFATE 4 MG/ML VIAL IVPUSH PRN ×2 (17:25→22:40)
[2017-04-16] MEDS ORDERED: CEFAZOLIN 1 GM/D5W 50 ML IVPB SCH (18:00)
[2017-04-16] MEDS ORDERED: PT OWN MED DRAWER 7, Y5N ONE (18:12)
[2017-04-16] MEDS: CEFAZOLIN 1 GM PUSH 1 GM/10 ML DISP.SYRIN IVPUSH SCH (18:37)
[2017-04-16] MEDS: DULoxetine HCL 20 MG CAPSULE.DR (FP) PO SCH (22:31)
[2017-04-16] MEDS: SENNOSIDES 8.6MG TABLET (FP) PO SCH (22:31)
[2017-04-16] MEDS: CALCIUM 500MG/VIT-D 200 UNITS COMBO TABLET (FP) PO SCH (22:31)
[2017-04-17] MEDS: CEFAZOLIN 1 GM PUSH 1 GM/10 ML DISP.SYRIN IVPUSH SCH ×2 (01:33→10:48)
[2017-04-17] MEDS: morphine SULFATE 4 MG/ML VIAL IVPUSH PRN ×3 (06:30→13:48)
[2017-04-17 07:41] LABS: BASO % 0.6 % (0-2.0); EOS % 0.3 % (0-4.5); HEMATOCRIT 21.2 % (35.4-49); LYMPH % 17.5 % (8-40); MCH 29.4 pg (25.7-33.7); MCHC 32.5 g/dl (32.0-35.9); MEAN CELL VOLUME 90.5 fl (80-96); MEAN PLT VOLUME 7.9 fl (7.5-11.1); MONO % 7.9 % (3.8-10.2); NEUT % 73.7 % (42.8-82.8); PLATELET COUNT 318 K/MM3 (134-434); RBC 2.34 M/mm3 (4.00-5.60); RDW 17.4 % (11.9-15.9); WHITE BLOOD COUNT 11.9 K/mm3 (4.0-10.0)
[2017-04-17 08:03] LABS: HEMOGLOBIN 6.9 GM/dL (11.7-16.9)
[2017-04-17 08:18] LABS: ALBUMIN 2.4 g/dl (3.4-5.0); ANION GAP 13 (8-16); BLOOD UREA NITROGEN 19 mg/dL (7-18); CALCIUM 8.6 mg/dL (8.5-10.1); CHLORIDE 115 mmol/L (98-107); CO2 15 mmol/L (21-32); CREATININE 1.1 mg/dL (0.7-1.3); GLUCOSE,RANDOM 121 mg/dL (74-106); POTASSIUM 4.7 mmol/L (3.5-5.1); SGOT/AST 36 U/L (15-37); SGPT/ALT 12 U/L (12-78); SODIUM 143 mmol/L (136-145)
[2017-04-17 08:20] LABS: ALK PHOS 65 U/L (45-117); BILIRUBIN,TOTAL 0.6 mg/dL (0.2-1.0); TOT PROT 5.5 g/dl (6.4-8.2)
[2017-04-17] MEDS ORDERED: SODIUM CHLORIDE 500 ML IV STA (08:41)
[2017-04-17] MEDS: FERROUS SO4 325 MG TABLET (FP) PO SCH ×2 (08:48→17:11)
[2017-04-17] MEDS: ACETAMINOPHEN 325 MG TABLET (FP) PO PRN (08:48)
[2017-04-17] MEDS ORDERED: FUROSEMIDE 40 MG/4 ML INJECTABLE VIAL IVPUSH SCH ×2 (09:40→18:45)
--- NOTE | 2017-04-17 09:43 | PN ---
Progress Note (short form) - Note Progress Note: patient seen and examined In pain--asking for pain medication. hypotensive and tachycardic. Low-grade temperature Moderate distress Vital Signs Temp 99.8 F H 04/17/17 08:13 Pulse 126 H 04/17/17 08:13 Resp 18 04/17/17 08:13 BP 88/55 04/17/17 08:13 Pulse Ox 98 04/16/17 21:00 Intake & Output 04/16/17 04/16/17 04/17/17 11:59 23:59 11:59 Intake Total 9286 154 1021 Balance 1554 026 4424 Intake: IV 8077 792 7200 D5-1/2NS+20 MEQ KCL - 20 1100 200 meq In 1,000 ml @ 100 mls /hr IV ASDIR [facility] Rx#: [id number] D5-1/2NS+20 MEQ KCL - 20 1200 meq In 1,000 ml @ 100 mls /hr IV ASDIR [facility] Rx#: [id number] Other: Voiding Method Incontinent Incontinent [place] # Unmeasured Voids Void 1 2 Bowel Movement No Active Medications Acetaminophen (Tylenol -) 650 mg PO Q6H PRN PRN Reason: FEVER OR PAIN Last Admin: 04/17/17 08:48 Dose: 650 mg Bupropion HCl (Wellbutrin Xl -) 150 mg PO DAILY [facility] Calcium Carbonate/Cholecalciferol (Os-Tab 500+D -) 1 tab PO BID [facility] Last Admin: 04/16/17 22:31 Dose: 1 tab Cyanocobalamin (Vitamin B12 -) 1,000 mcg PO DAILY [facility] Duloxetine HCl (Cymbalta -) 20 mg PO HS [facility] Last Admin: 04/16/17 22:31 Dose: 20 mg Enoxaparin Sodium (Lovenox -) 40 mg SQ DAILY [facility] Ferrous Sulfate (Feosol -) 325 mg PO BIDWM [facility] Last Admin: 04/17/17 08:48 Dose: Not Given Furosemide (Lasix Injection -) 20 mg IVPUSH ONCE ONE Stop: 04/17/17 09:41 Potassium Chloride/Dextrose/Sod Cl (D5-1/2ns+20 Meq Kcl -) 20 meq in 1,000 mls @ 100 mls/hr IV [facility] Last Admin: 04/16/17 22:32 Dose: 100 mls/hr Cefazolin Sodium (Ancef -) 1 gm in 10 mls @ 120 mls/hr IVPUSH Q8H-IV [facility] Stop: 04/17/17 17:59 Last Admin: 04/17/17 01:33 Dose: 120 mls/hr Ceftriaxone Sodium 1 gm/ (Dextrose) 100 mls @ 200 mls/hr IVPB DAILY [facility] Metoprolol Succinate (Toprol Xl -) 50 mg PO DAILY [facility] Morphine Sulfate (Morphine Sulfate) 2 mg IVPUSH Q4H PRN Last Admin: 04/17/17 06:30 Dose: 2 mg Ondansetron HCl (Zofran Injection) 4 mg IVPUSH Q6H PRN PRN Reason: NAUSEA AND/OR VOMITING Senna (Senna -) 2 tab PO HS [facility] Last Admin: 04/16/17 22:31 Dose: 2 tab Zinc Sulfate (Orazinc -) 220 mg PO DAILY [facility] CBC, BMP 04/17/17 06:30 04/17/17 06:30 Physical Examination in moderate distress Heart sounds--- regular and tachycardic Lungs--clear Abdomen--soft Extremities--no edema Assessment and plan Postop day #1 Hypotensive and tachycardic Postop anemia Low-grade temperature Likely UTI IV fluids Transfuse Pain control Post transfusion CBC Start on Rocephin today--was on Ancef yesterday urine culture pending Discussed with nursing staff Will follow. Problem List - Problems (1) Anemia Code(s): D64.9 - ANEMIA, UNSPECIFIED Qualifiers: Anemia type: unspecified type Qualified Code(s): D64.9 - Anemia, unspecified (2) CAD (coronary artery disease) Code(s): I25.10 - ATHSCL HEART DISEASE OF [place] CORONARY ARTERY W/O ANG PCTRS Qualifiers: Coronary Disease-Associated Artery/Lesion type: [place] artery [place] vs. transplanted heart: [place] heart Associated angina: without angina Qualified Code(s): I25.10 - Atherosclerotic heart disease of [place] coronary artery without angina pectoris (3) Dementia Code(s): F03.90 - UNSPECIFIED DEMENTIA WITHOUT BEHAVIORAL DISTURBANCE Qualifiers: Dementia type: unspecified type Dementia behavioral disturbance: without behavioral disturbance Qualified Code(s): F03.90 - Unspecified dementia without behavioral disturbance (4) Diabetes mellitus Code(s): E11.9 - TYPE 2 DIABETES MELLITUS WITHOUT COMPLICATIONS Qualifiers: Diabetes mellitus type: type 2 (5) Hip fracture Code(s): S72.009A - FRACTURE OF UNSP PART OF NECK OF UNSP FEMUR, INIT Qualifiers: Encounter type: initial encounter
--- NOTE | 2017-04-17 09:43 | PN ---
Progress Note (short form) - Note Progress Note: POST OP NOTE Patient seen. POD#1 after left gamma nail. Patient hypotensive and tacahycardic. MSO4 being held. No obvious complications from [place].
[2017-04-17] MEDS: ZINC SULFATE 220 MG CAPSULE (FP) PO SCH (09:57)
[2017-04-17] MEDS: ENOXAPARIN NA (PORCINE) 40 MG/0.4 ML DISP.SYRIN SQ SCH (09:57)
[2017-04-17] MEDS: METOPROLOL SUCCINATE 50 MG TAB.SR.24H (FP) PO SCH (09:57)
[2017-04-17] MEDS: CALCIUM 500MG/VIT-D 200 UNITS COMBO TABLET (FP) PO SCH ×2 (09:57→21:05)
[2017-04-17] MEDS: CYANOCOBALAMIN 1,000 MCG TABLET (FP) PO SCH (09:58)
[2017-04-17 10:44] LABS: BASO % 0.5 % (0-2.0); EOS % 0.2 % (0-4.5); HEMATOCRIT 21.4 % (35.4-49); LYMPH % 15.3 % (8-40); MCH 28.8 pg (25.7-33.7); MCHC 31.5 g/dl (32.0-35.9); MEAN CELL VOLUME 91.4 fl (80-96); MEAN PLT VOLUME 8.1 fl (7.5-11.1); MONO % 8.9 % (3.8-10.2); NEUT % 75.1 % (42.8-82.8); PLATELET COUNT 328 K/MM3 (134-434); RBC 2.34 M/mm3 (4.00-5.60); RDW 17.6 % (11.9-15.9); WHITE BLOOD COUNT 13.8 K/mm3 (4.0-10.0)
[2017-04-17 11:04] LABS: HEMOGLOBIN 6.7 GM/dL (11.7-16.9)
[2017-04-17] MEDS ORDERED: PT OWN MED DRAWER 7, Y5N ONE ×2 (11:38→20:58)
--- NOTE | 2017-04-17 11:42 | PN ---
Progress Note, Physician Chief Complaint: Events noted Does not appear to be in distress History of Present Illness: Patient was seen and examined. Arousable. Chart was reviewed Tachycardic Denies chest pain or SOB - Current Medication List Current Medications: Active Medications Acetaminophen (Tylenol -) 650 mg PO Q6H PRN PRN Reason: FEVER OR PAIN Last Admin: 04/17/17 08:48 Dose: 650 mg Bupropion HCl (Wellbutrin Xl -) 150 mg PO DAILY [facility] Last Admin: 04/17/17 09:58 Dose: Not Given Calcium Carbonate/Cholecalciferol (Os-Tab 500+D -) 1 tab PO BID [facility] Last Admin: 04/17/17 09:57 Dose: Not Given Cyanocobalamin (Vitamin B12 -) 1,000 mcg PO DAILY [facility] Last Admin: 04/17/17 09:58 Dose: Not Given Duloxetine HCl (Cymbalta -) 20 mg PO HS [facility] Last Admin: 04/16/17 22:31 Dose: 20 mg Enoxaparin Sodium (Lovenox -) 40 mg SQ DAILY [facility] Last Admin: 04/17/17 09:57 Dose: 40 mg Ferrous Sulfate (Feosol -) 325 mg PO BIDWM [facility] Last Admin: 04/17/17 08:48 Dose: Not Given Furosemide (Lasix Injection -) 20 mg IVPUSH [employer] [facility] Stop: 04/17/17 16:00 Potassium Chloride/Dextrose/Sod Cl (D5-1/2ns+20 Meq Kcl -) 20 meq in 1,000 mls @ 100 mls/hr IV ASDIR [facility] Last Admin: 04/16/17 22:32 Dose: 100 mls/hr Cefazolin Sodium (Ancef -) 1 gm in 10 mls @ 120 mls/hr IVPUSH Q8H-IV [facility] Stop: 04/17/17 17:59 Last Admin: 04/17/17 10:48 Dose: 120 mls/hr Ceftriaxone Sodium 1 gm/ (Sodium Chloride) 100 mls @ 200 mls/hr IVPB DAILY@ 2200 [facility] Metoprolol Succinate (Toprol Xl -) 50 mg PO DAILY [facility] Last Admin: 04/17/17 09:57 Dose: Not Given Morphine Sulfate (Morphine Sulfate) 2 mg IVPUSH Q4H PRN Last Admin: 04/17/17 09:54 Dose: 2 mg Ondansetron HCl (Zofran Injection) 4 mg IVPUSH Q6H PRN PRN Reason: NAUSEA AND/OR VOMITING Senna (Senna -) 2 tab PO HS [facility] Last Admin: 04/16/17 22:31 Dose: 2 tab Zinc Sulfate (Orazinc -) 220 mg PO DAILY [facility] Last Admin: 04/17/17 09:57 Dose: Not Given - Objective Vital Signs: Vital Signs Temperature 99.8 F H 04/17/17 08:13 Pulse Rate 126 H 04/17/17 08:13 Respiratory Rate 18 04/17/17 08:13 Blood Pressure 88/55 04/17/17 08:13 O2 Sat by Pulse Oximetry (%) 99 04/17/17 09:00 Cardiovascular: Yes: Regular Rate and Rhythm, Tachycardia, Murmur (2/6 SM at LSB an apex), S1, S2 Respiratory: Yes: Diminished Gastrointestinal: Yes: Normal Bowel Sounds, Soft. No: Tenderness Edema: No Labs: CBC, BMP 04/17/17 10:00 04/17/17 06:30 INR, PTT INR 1.19 (0.82-1.09) H 04/15/17 01:09 Problem List - Problems (1) Anemia Code(s): D64.9 - ANEMIA, UNSPECIFIED Qualifiers: Anemia type: unspecified type Qualified Code(s): D64.9 - Anemia, unspecified (2) CAD (coronary artery disease) Code(s): I25.10 - ATHSCL HEART DISEASE OF [place] CORONARY ARTERY W/O ANG PCTRS Qualifiers: Coronary Disease-Associated Artery/Lesion type: [place] artery [place] vs. transplanted heart: [place] heart Associated angina: without angina Qualified Code(s): I25.10 - Atherosclerotic heart disease of [place] coronary artery without angina pectoris (3) Dementia Code(s): F03.90 - UNSPECIFIED DEMENTIA WITHOUT BEHAVIORAL DISTURBANCE Qualifiers: Dementia type: unspecified type Dementia behavioral disturbance: without behavioral disturbance Qualified Code(s): F03.90 - Unspecified dementia without behavioral disturbance (4) Diabetes mellitus Code(s): E11.9 - TYPE 2 DIABETES MELLITUS WITHOUT COMPLICATIONS Qualifiers: Diabetes mellitus type: type 2 (5) HLD (hyperlipidemia) Code(s): E78.5 - HYPERLIPIDEMIA, UNSPECIFIED Qualifiers: Hyperlipidemia type: pure hypercholesterolemia Qualified Code(s): E78.00 - Pure hypercholesterolemia, unspecified; E78.0 - Pure hypercholesterolemia (6) Hip fracture Code(s): S72.009A - FRACTURE OF UNSP PART OF NECK OF UNSP FEMUR, INIT Qualifiers: Encounter type: initial encounter Assessment/Plan 1. Post left hip IM nail 2. Anemia 3. Hypokalemia 4. HTN 5. CAD, angina pectoris 6. Hyperlipidemia 7. Dementia 8. Anemia H/H diminished PLAN: 1. Transfuse PRBC - H/H lower today 2. Resume ASA 81 qd once post-op hemostasis assured. Continue Toprol XL 50 qd, Altace 2.5 qd and hold Lasix as hemodynamics tolerate 3. Analgesia as needed 4. DVT prophylaxis 5. 12 lead ECG Further plans are to follow Alvin Alvarenga MD
[2017-04-17] MEDS: D5-1/2NS+20 MEQ KCL - 20 MEQ/1,000 ML INFUS.BAG IV SCH (13:49)
[2017-04-17] MEDS: morphine CARPU-JECT 8 MG/1 ML DISP.SYRIN IVPUSH PRN (18:44)
--- NOTE | 2017-04-17 19:18 | PN ---
Progress Note (short form) - Note Progress Note: Pt lying in bed. Confused but answers questions appropriately. evening vitals pending, was tachycardic earlier LLE dressings with small bloody spotting calves soft NT ehl fhl ta g s intact sens int to LT 2+ dp a/p: POD 1 L hip IM nail -pain control -dvt proph -rehab -f/u AM cbc, may require further transfusion if persistently tachycardic with low hct
[2017-04-17] MEDS: CEFTRIAXONE 1 GM in SODIUM CHLORIDE 100 ML IVPB SCH (21:05)
[2017-04-17] MEDS: DULoxetine HCL 20 MG CAPSULE.DR (FP) PO SCH (21:05)
[2017-04-17] MEDS: SENNOSIDES 8.6MG TABLET (FP) PO SCH (21:05)
[2017-04-18] MEDS: morphine CARPU-JECT 8 MG/1 ML DISP.SYRIN IVPUSH PRN ×2 (02:39→08:32)
--- NOTE | 2017-04-18 03:36 | HOSP ---
Subjective - Review of Symptoms Events since last encounter: Hospitalist Encounter Notified by the RN that a patient of Dr. Janice Layne, completed his 2nd unit of PRBC at 1am, and there was no order for a post transfusion CBC. A/P 82 y/o man with a PMHx of:HTN. Admitted to M/S for Left Hip Fracture, Hypokalemia, Anemia. POD #1 L- Hip IM Nail Stat CBCD ordered Will continue to monitor Physical Examination Vital Signs: Vital Signs Temperature 97.4 F L 04/17/17 21:04 Pulse Rate 124 H 04/17/17 21:04 Respiratory Rate 20 04/17/17 21:04 Blood Pressure 102/63 04/17/17 21:04 O2 Sat by Pulse Oximetry (%) 99 04/17/17 09:00 Labs: CBC, BMP 04/17/17 10:00 04/17/17 06:30
[2017-04-18 04:13] LABS: BASO % 0.4 % (0-2.0); EOS % 0.5 % (0-4.5); HEMATOCRIT 28.5 % (35.4-49); HEMOGLOBIN 9.5 GM/dL (11.7-16.9); LYMPH % 20.8 % (8-40); MCH 29.5 pg (25.7-33.7); MCHC 33.3 g/dl (32.0-35.9); MEAN CELL VOLUME 88.5 fl (80-96); MONO % 7.2 % (3.8-10.2); NEUT % 71.1 % (42.8-82.8); PLATELET COUNT 313 K/MM3 (134-434); RBC 3.22 M/mm3 (4.00-5.60); RDW 16.3 % (11.9-15.9); WHITE BLOOD COUNT 11.2 K/mm3 (4.0-10.0)
[2017-04-18 08:11] LABS: ALBUMIN 2.2 g/dl (3.4-5.0); ANION GAP 11 (8-16); BILIRUBIN,TOTAL 2.3 mg/dL (0.2-1.0); BLOOD UREA NITROGEN 22 mg/dL (7-18); CALCIUM 8.5 mg/dL (8.5-10.1); CHLORIDE 114 mmol/L (98-107); CO2 18 mmol/L (21-32); CREATININE 0.9 mg/dL (0.7-1.3); GLUCOSE,RANDOM 127 mg/dL (74-106); POTASSIUM 4.5 mmol/L (3.5-5.1); SGOT/AST 51 U/L (15-37); SGPT/ALT 11 U/L (12-78); SODIUM 143 mmol/L (136-145); TOT PROT 5.4 g/dl (6.4-8.2)
[2017-04-18 08:12] LABS: ALK PHOS 67 U/L (45-117)
[2017-04-18] MEDS: FERROUS SO4 325 MG TABLET (FP) PO SCH ×2 (08:28→17:18)
[2017-04-18] MEDS: D5-1/2NS+20 MEQ KCL - 20 MEQ/1,000 ML INFUS.BAG IV SCH ×3 (08:31→20:19)
[2017-04-18] MEDS: ENOXAPARIN NA (PORCINE) 40 MG/0.4 ML DISP.SYRIN SQ SCH (09:36)
[2017-04-18] MEDS: ZINC SULFATE 220 MG CAPSULE (FP) PO SCH (09:37)
[2017-04-18] MEDS: CYANOCOBALAMIN 1,000 MCG TABLET (FP) PO SCH (09:37)
[2017-04-18] MEDS: CALCIUM 500MG/VIT-D 200 UNITS COMBO TABLET (FP) PO SCH ×2 (09:37→21:21)
[2017-04-18] MEDS: METOPROLOL SUCCINATE 50 MG TAB.SR.24H (FP) PO SCH (09:37)
--- NOTE | 2017-04-18 10:02 | PN ---
Progress Note (short form) - Note Progress Note: Pt lying in bed. Confused but answers questions appropriately. Last Vital Signs Temp Pulse Resp BP Pulse Ox 98.7 F 129 H 20 114/64 98 04/18/17 08:41 04/18/17 08:41 04/18/17 08:41 04/18/17 08:41 04/17/17 21:00 LLE dressings with small bloody spotting calves soft NT ehl fhl ta g s intact sens int to LT 2+ dp Abnormal Lab Results 04/15/17 04/17/17 04/18/17 11:13 10:00 03:55 WBC 13.8 H 11.2 H RBC 2.34 L 3.22 L D Hgb 6.7 L* 9.5 L D Hct 21.4 L 28.5 L D MCHC 31.5 L RDW 17.6 H 16.3 H Chloride Carbon Dioxide BUN Random Glucose Total Bilirubin AST ALT Total Protein Albumin Crossmatch See Detail 04/18/17 06:00 WBC RBC Hgb Hct MCHC RDW Chloride 114 H Carbon Dioxide 18 L BUN 22 H Random Glucose 127 H Total Bilirubin 2.3 H D AST 51 H D ALT 11 L Total Protein 5.4 L Albumin 2.2 L Crossmatch a/p: POD 2 L hip IM nail -pain control -dvt proph -rehab -hct appears improved today, continue to follow -tachycardia only slightly improved
--- NOTE | 2017-04-18 10:12 | PN ---
Progress Note, Physician History of Present Illness: pod #2 awake/ comfortable denies pain today no distress - Current Medication List Current Medications: Active Medications Acetaminophen (Tylenol -) 650 mg PO Q6H PRN PRN Reason: FEVER OR PAIN Last Admin: 04/17/17 08:48 Dose: 650 mg Bupropion HCl (Wellbutrin Xl -) [address] [facility] Last Admin: 04/18/17 09:37 Dose: Not Given Calcium Carbonate/Cholecalciferol (Os-Tab 500+D -) [address] [facility] Last Admin: 04/18/17 09:37 Dose: Not Given Cyanocobalamin (Vitamin B12 -) 1,[address] [facility] Last Admin: 04/18/17 09:37 Dose: Not Given Duloxetine HCl (Cymbalta -) [address] [facility] Last Admin: 04/17/17 21:05 Dose: 20 mg Enoxaparin Sodium (Lovenox -) [address] [facility] Last Admin: 04/18/17 09:36 Dose: 40 mg Ferrous Sulfate (Feosol -) [address] 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 Last Admin: 04/17/17 18:40 Dose: Not Given Potassium Chloride/Dextrose/Sod Cl (D5-1/2ns+20 Meq Kcl -) 20 meq in 1,000 mls @ 100 mls/hr IV ASDIR [facility] Last Admin: 04/18/17 08:31 Dose: 100 mls/hr Ceftriaxone Sodium 1 gm/ (Sodium Chloride) 100 mls @ 200 mls/hr IVPB DAILY@ 2200 [facility] Last Admin: 04/17/17 21:05 Dose: 200 mls/hr Metoprolol Succinate (Toprol Xl -) [address] [facility] Last Admin: 04/18/17 09:37 Dose: Not Given Morphine Sulfate (Morphine Sulfate) 2 mg IVPUSH Q4H PRN Last Admin: 04/18/17 08:32 Dose: 2 mg Ondansetron HCl (Zofran Injection) 4 mg IVPUSH Q6H PRN PRN Reason: NAUSEA AND/OR VOMITING Senna (Senna -) [address] [facility] Last Admin: 04/17/17 21:05 Dose: 2 tab Zinc Sulfate (Orazinc -) 220 mg PO DAILY [facility] Last Admin: 04/18/17 09:37 Dose: Not Given - Objective Vital Signs: Vital Signs Temperature 98.7 F 04/18/17 08:41 Pulse Rate 129 H 04/18/17 08:41 Respiratory Rate 20 04/18/17 08:41 Blood Pressure 114/64 04/18/17 08:41 O2 Sat by Pulse Oximetry (%) 98 04/17/17 21:00 Constitutional: Yes: No Distress, Calm Neck: Yes: Supple Cardiovascular: Yes: Regular Rate and Rhythm, Tachycardia Respiratory: Yes: CTA Bilaterally Gastrointestinal: Yes: Soft Edema: No Wound/Incision: Yes: Dressing Dry and Intact Neurological: Yes: Other (awake- answers simple questions) Labs: CBC, BMP 04/18/17 06:00 INR, PTT INR 1.19 (0.82-1.09) H 04/15/17 01:09 Problem List - Problems (1) Anemia Code(s): D64.9 - ANEMIA, UNSPECIFIED Qualifiers: Anemia type: unspecified type Qualified Code(s): D64.9 - Anemia, unspecified (2) CAD (coronary artery disease) Code(s): I25.10 - ATHSCL HEART DISEASE OF [place] CORONARY ARTERY W/O ANG PCTRS Qualifiers: Coronary Disease-Associated Artery/Lesion type: [place] artery [place] vs. transplanted heart: [place] heart Associated angina: without angina Qualified Code(s): I25.10 - Atherosclerotic heart disease of [place] coronary artery without angina pectoris (3) Dementia Code(s): F03.90 - UNSPECIFIED DEMENTIA WITHOUT BEHAVIORAL DISTURBANCE Qualifiers: Dementia type: unspecified type Dementia behavioral disturbance: without behavioral disturbance Qualified Code(s): F03.90 - Unspecified dementia without behavioral disturbance (4) Diabetes mellitus Code(s): E11.9 - TYPE 2 DIABETES MELLITUS WITHOUT COMPLICATIONS Qualifiers: Diabetes mellitus type: type 2 (5) Hip fracture Code(s): S72.009A - FRACTURE OF UNSP PART OF NECK OF UNSP FEMUR, INIT Qualifiers: Encounter type: initial encounter Assessment/Plan Postop day #2 better still tachy bp better got 2 units of prbcs- yesterday Pain control abx will follow physical therapy
[2017-04-18 10:50] LABS: BASO % 0.4 % (0-2.0); EOS % 0.1 % (0-4.5); HEMATOCRIT 27.5 % (35.4-49); LYMPH % 16.4 % (8-40); MCH 29.1 pg (25.7-33.7); MCHC 32.7 g/dl (32.0-35.9); MEAN CELL VOLUME 89.1 fl (80-96); MEAN PLT VOLUME 8.4 fl (7.5-11.1); MONO % 7.4 % (3.8-10.2); NEUT % 75.7 % (42.8-82.8); PLATELET COUNT 328 K/MM3 (134-434); RBC 3.09 M/mm3 (4.00-5.60); RDW 16.8 % (11.9-15.9); WHITE BLOOD COUNT 13.5 K/mm3 (4.0-10.0)
--- NOTE | 2017-04-18 11:15 | PN ---
Progress Note, Physician History of Present Illness: s/p left hip IM gamma nail post 2 U pRBC transfusion with appropriate Hgb increase. Not taking oral intake and not receiving oral meds since admission. Nonverbal. - Current Medication List Current Medications: Active Medications Acetaminophen (Tylenol -) 650 mg PO Q6H PRN PRN Reason: FEVER OR PAIN Last Admin: 04/17/17 08:48 Dose: 650 mg Bupropion HCl (Wellbutrin Xl -) 150 mg PO DAILY [facility] Last Admin: 04/18/17 09:37 Dose: Not Given Calcium Carbonate/Cholecalciferol (Os-Tab 500+D -) 1 tab PO BID [facility] Last Admin: 04/18/17 09:37 Dose: Not Given Cyanocobalamin (Vitamin B12 -) 1,000 mcg PO DAILY [facility] Last Admin: 04/18/17 09:37 Dose: Not Given Duloxetine HCl (Cymbalta -) 20 mg PO HS [facility] Last Admin: 04/17/17 21:05 Dose: 20 mg Enoxaparin Sodium (Lovenox -) 40 mg SQ DAILY [facility] Last Admin: 04/18/17 09:36 Dose: 40 mg Ferrous Sulfate (Feosol -) 325 mg PO BIDWM [facility] Last Admin: 04/18/17 08:28 Dose: 325 mg Furosemide (Lasix Injection -) 20 mg 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 [facility] Last Admin: 04/17/17 18:40 Dose: Not Given Potassium Chloride/Dextrose/Sod Cl (D5-1/2ns+20 Meq Kcl -) 20 meq in 1,000 mls @ 100 mls/hr IV ASDIR [facility] Last Admin: 04/18/17 08:31 Dose: 100 mls/hr Ceftriaxone Sodium 1 gm/ (Sodium Chloride) 100 mls @ 200 mls/hr IVPB DAILY@ 2200 [facility] Last Admin: 04/17/17 21:05 Dose: 200 mls/hr Metoprolol Succinate (Toprol Xl -) 50 mg PO DAILY [facility] Last Admin: 04/18/17 09:37 Dose: Not Given Morphine Sulfate (Morphine Sulfate) 2 mg IVPUSH Q3H PRN PRN Reason: PAIN Ondansetron HCl (Zofran Injection) 4 mg IVPUSH Q6H PRN PRN Reason: NAUSEA AND/OR VOMITING Senna (Senna -) 2 tab PO [facility] Last Admin: 04/17/17 21:05 Dose: 2 tab Zinc Sulfate (Orazinc -) 220 mg PO DAILY [facility] Last Admin: 04/18/17 09:37 Dose: Not Given - Objective Vital Signs: Vital Signs Temperature 98.7 F 04/18/17 08:41 Pulse Rate 129 H 04/18/17 08:41 Respiratory Rate 20 04/18/17 08:41 Blood Pressure 114/64 04/18/17 08:41 O2 Sat by Pulse Oximetry (%) 98 04/18/17 09:00 Constitutional: Yes: No Distress, Calm, Thin Neck: Yes: Supple Cardiovascular: Yes: Tachycardia Respiratory: Yes: Regular, Diminished Gastrointestinal: Yes: Soft, Hypoactive Bowel Sounds Edema: No Labs: CBC, BMP 04/18/17 06:00 04/18/17 06:00 INR, PTT INR 1.19 (0.82-1.09) H 04/15/17 01:09 - ....Imaging EKG: Report Reviewed (ST @ 122 RBBB anterolateral ischemic changes) Problem List - Problems (1) Hypertensive cardiomyopathy Code(s): I11.9 - HYPERTENSIVE HEART DISEASE WITHOUT HEART FAILURE; I43 - CARDIOMYOPATHY IN DISEASES CLASSIFIED ELSEWHERE Qualifiers: Heart failure presence: without heart failure Qualified Code(s): I11.9 - Hypertensive heart disease without heart failure; I43 - Cardiomyopathy in diseases classified elsewhere; I43 - Cardiomyopathy in diseases classified elsewhere; I43 - Cardiomyopathy in diseases classified elsewhere; I43 - Cardiomyopathy in diseases classified elsewhere (2) Anemia Code(s): D64.9 - ANEMIA, UNSPECIFIED Qualifiers: Anemia type: unspecified type Qualified Code(s): D64.9 - Anemia, unspecified (3) CAD (coronary artery disease) Code(s): I25.10 - ATHSCL HEART DISEASE OF [place] CORONARY ARTERY W/O ANG PCTRS Qualifiers: Coronary Disease-Associated Artery/Lesion type: [place] artery [place] vs. transplanted heart: [place] heart Associated angina: without angina Qualified Code(s): I25.10 - Atherosclerotic heart disease of [place] coronary artery without angina pectoris (4) Dementia Code(s): F03.90 - UNSPECIFIED DEMENTIA WITHOUT BEHAVIORAL DISTURBANCE Qualifiers: Dementia type: unspecified type Dementia behavioral disturbance: without behavioral disturbance Qualified Code(s): F03.90 - Unspecified dementia without behavioral disturbance (5) Diabetes mellitus Code(s): E11.9 - TYPE 2 DIABETES MELLITUS WITHOUT COMPLICATIONS Qualifiers: Diabetes mellitus type: type 2 (6) HLD (hyperlipidemia) Code(s): E78.5 - HYPERLIPIDEMIA, UNSPECIFIED Qualifiers: Hyperlipidemia type: pure hypercholesterolemia Qualified Code(s): E78.00 - Pure hypercholesterolemia, unspecified; E78.0 - Pure hypercholesterolemia (7) Hip fracture Code(s): S72.009A - FRACTURE OF UNSP PART OF NECK OF UNSP FEMUR, INIT Qualifiers: Encounter type: subsequent encounter (8) Ischemic heart disease due to coronary artery obstruction Code(s): I24.0 - ACUTE CORONARY THROMBOSIS NOT RESULTING IN MYOCARDIAL INFRC Assessment/Plan 1. POD#2 left hip IM nail 2. Anemia post transfusion 3. Hypokalemia resolved 4. HTN 5. CAD with ischemic changes off meds 6. Hyperlipidemia 7. Dementia P:1. Transfused to maintain Hgb>8.0 2. Resume ASA 81 qd, resume metoprolol 25 bid via NGT if needed as patient is not taking oral intake and will also need enteral feeds as has not eaten since admission 3. Analgesia as needed 4. DVT prophylaxis
[2017-04-18] MEDS: morphine CARPU-JECT 2 MG/1 ML DISP.SYRIN IVPUSH PRN ×2 (11:27→22:37)
[2017-04-18] MEDS: ACETAMINOPHEN 325 MG TABLET (FP) PO PRN ×2 (11:45→21:30)
[2017-04-18] MEDS ORDERED: ASPIRIN 81 MG CHEWABLE TABLETS NGT SCH (11:45)
[2017-04-18] MEDS ORDERED: METOPROLOL TARTRATE 25 MG TABLET (FP) NGT SCH (11:45)
--- NOTE | 2017-04-18 13:25 | EKG ---
Test Reason : Blood Pressure : / mmHG Vent. Rate : 122 BPM Atrial Rate : 122 BPM P-R Int : 212 ms QRS Dur : 142 ms QT Int : 350 ms P-R-T Axes : 000 091 038 degrees QTc Int : 498 ms SINUS TACHYCARDIA WITH 1ST DEGREE A-V BLOCK RIGHT BUNDLE BRANCH BLOCK T WAVE ABNORMALITY, CONSIDER INFEROLATERAL ISCHEMIA ABNORMAL ECG WHEN COMPARED WITH ECG OF 15-APR-2017 03:23, CA INTERVAL HAS INCREASED RIGHT BUNDLE BRANCH BLOCK IS NOW PRESENT Confirmed by MELISSA SANTO MD ([id number]) on 04/18/2017 1:25:02 PM Referred By: ISAURA DAUGHERTY Confirmed By:MELISSA SANTO MD
--- NOTE | 2017-04-18 15:03 | CONSULT ---
Admitting History and Physical - Primary Care Physician PCP: Janice Layne - Admission History of Present Illness: This is a 82 y/o man from the [facility] to the ED with s/p fall out of wheelchair yesterday. Admitted with Acute Left Femoral Intertrochanteric Fracture. Selected Entries 04/17/17 04/17/17 04/18/17 15:52 20:32 05:00 Breakfast Lunch 25% Supper 25% Temperature 97.6 F 04/18/17 04/18/17 04/18/17 08:41 10:47 12:40 Breakfast 25% Lunch Supper Temperature 98.7 F 100.5 F H 04/18/17 15:00 Breakfast Lunch 25% Supper Temperature 97.1 F L Laboratory Tests 04/16/17 04/17/17 04/18/17 00:30 06:30 03:55 WBC 14.0 H 11.[address]: Diet: Dysphagia Puree Poor PO noted, observed VISCOSITY TESTER feeding pt, has eyes closed, holds pureed food in mouth, swallows only when prompted. Possible plans for NGT feeding. Pt is DNR/DNI. 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 Cardiovascular: Yes: CAD, HTN, Hyperlipdemia, Other (Cardiomyopathy) Pulmonary: No: Asthma, Bronchitis, Cancer, COPD, O2 Dependent, Pneumonia, Previously Intubated, Pulmonary Embolus, Pulmonary Fibrosis, Sleep Apnea, Other Gastrointestinal: No: Ascites, Cancer, Constipation, Crohn's Disease, Diverticulitis, Diverticulosis, Esophageal Varices, Gastritis, GERD, GI Bleed, Hemorrhoids, Hiatal Hernia, Inflamatory Bowel Disease, Irritable Bowel Disease, Pancreatitis, Peptic Ulcer Disease, Ulcerative Colitis, Other Hepatobiliary: No: Cirrhosis, Cholelithiasis, Cholecystitis, Choledocholithiasis , Hepatitis A, Hepatitis B, Hepatitis C, Other Renal/: No: Renal Failure, Renal Inusuff, BPH, Cancer, Hematuria, Hemodialysis , Neurogenic Bladder, Renal Calculi, UTI, Other Heme/Onc: No: Anemia, B12 Deficiency, Bleeding Disorder, Cancer, Current Chemotherapy, Current Radiation Therapy, Hemochromatosis, Hypercoaguable State, Myeloproliferative Synd, Sickle Cell Disease, Sickle Cell Trait, Thrombocytopenia, Other Infectious Disease: No: AIDS, C-Diff, Herpes Zoster, HIV, MRSA, STD's, Tuberculosis, VREF, Other Psych: Yes: Depression Musculoskeletal: Yes: Other Rheumatology: No: Fibromyalgia, Gout, Lupus, Rheumatoid Arthritis, Sarcoidosis, Vasculitis, Other ENT: No: Allergic Rhinitis, Sinusitis, Other Endocrine: Yes: Diabetes Mellitus Dermatology: No: Basal Cell, Cellulitis, Eczema, Melanoma, Psoriasis, Squamous Cell, Other - Past Surgical History Past Surgical History: Yes: Joint Replacement (Right Hip Pinning) - Advance Directives Advance Directives: Yes: Living Will, Health Care Proxy, DNR (DNI), MOLST - Smoking History Smoking history: Never smoked Have you smoked in the past 12 months: No - Alcohol/Substance Use Hx Alcohol Use: No History of Substance Use: reports: None - Social History ADL: Support Services 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: No History - Admission Reason For Visit: FRACTURE OF HIP,ANEMIA,HYPOKALEMIA - Diagnostics X-ray: Report Reviewed - General Mental Status: Able to Follow Commands, Forgetful, Vague, Confused Attention: Distractible, Moderate Impairment Ability to Follow Directions: Fair Head/Neck Control: Good - Hearing Hearing: Normal Speech Evaluation - Communication Primary Language: WELSH Communication: Yes: Simple Responses - Speech Characteristics Voice Loudness: Normal Voice Pitch: Yes: Normal Voice Phonatory-based Quality: Yes: Dysphonia Speech Pattern: Normal - Swallow Evaluation/Bedside Assessment Current Nutritional Intake: Dysphagia Pureed, Honey Textured Liquids Oral Secretions: Yes: WFL Facial Symmetry at Rest: Symmetrical Lingual Movement: Symmetric Laryngeal Movement: Reduced Excursion, Labored,delay initiation Rate of Intake: Slow/Holding Labial Seal: WFL Oral Prep Time: Increased A-P Transit: Impaired Timing of Swallow: Delayed Coughing/Throat Clear: No Change in Voice: No Recommendations - Speech Evaluation, Impression/Plan Impression: Keeps eyes closed unless repeatedly cued to open them. Oral holding with delayed swallow onset. Reduced excursion with repeat swallows generation. Suspect stasis and risk of aspiration. Not cough or vocal wetness. Needs cues with every bite/sip to swallow with delay of 2-3 seconds. Much greater swallow delay reported yesterday and this morning. Suspect related to anaesthesia. - Disposition [facility] to[facility] - Dysphagia Impressions/Plan Swallowing Skills: Impaired Dysphagia Impressions: Mild Impairment, Moderate Impairment *Silent aspiration: cannot be R/O at bedside Dysphagia Treatment Plan: Small Bites, Chin Tuck/Down, Trial Feedings, Safe Rate , 1/2 tsp. at a time, Elevate HOB during feed (as tolerated), Other (tell pt to swallow with each bite and palpate larynx for swallow.) Recommendations: Modified Barium Swallow (if cough, congestion,fever) - Recommendations Diet Consistency: Dysphagia Pureed Medication Administration: Crushed with applesauce Liquids: Honey Thick (on a tsn only) Supplement: Magic Cup, Ensure Pudding
[2017-04-18] MEDS: ASPIRIN 81 MG CHEWABLE TABLETS PO SCH (18:06)
[2017-04-18] MEDS ORDERED: PT OWN MED DRAWER 7, Y5N ONE (20:34)
[2017-04-18] MEDS: CEFTRIAXONE 1 GM in SODIUM CHLORIDE 100 ML IVPB SCH (21:19)
[2017-04-18] MEDS: METOPROLOL TARTRATE 25 MG TABLET (FP) PO SCH (21:20)
[2017-04-18] MEDS: DULoxetine HCL 20 MG CAPSULE.DR (FP) PO SCH (21:20)
[2017-04-18] MEDS: SENNOSIDES 8.6MG TABLET (FP) PO SCH (21:21)
[2017-04-19] MEDS: D5-1/2NS+20 MEQ KCL - 20 MEQ/1,000 ML INFUS.BAG IV SCH (06:59)
[2017-04-19] MEDS: FERROUS SO4 325 MG TABLET (FP) PO SCH ×2 (09:00→17:32)
[2017-04-19] MEDS: ASPIRIN 81 MG CHEWABLE TABLETS PO SCH (09:42)
--- NOTE | 2017-04-19 09:43 | PN ---
Progress Note (short form) - Note Progress Note: pt looks better nurse reports eating better denies pain Vital Signs Temp 97.4 F L 04/19/17 06:00 Pulse 61 04/19/17 06:00 Resp 20 04/19/17 06:00 BP 105/58 04/19/17 06:00 Pulse Ox 99 04/18/17 21:00 Intake & Output 04/18/17 04/18/17 04/19/17 11:59 23:59 11:59 Intake Total 1150 1250 1150 Balance 1150 1250 1150 Intake: IV 600 1150 1150 D5-1/2NS+20 MEQ KCL - 20 600 1150 1150 meq In 1,000 ml @ 100 mls /hr IV ASDIR [facility] Rx#: [id number] IVPB 200 100 [place] 350 Other: Voiding Method Incontinent Incontinent # Unmeasured Voids Void 2 1 2 Bowel Movement No No Active Medications Acetaminophen (Tylenol -) 650 mg PO Q6H PRN PRN Reason: FEVER OR PAIN Last Admin: 04/18/17 21:30 Dose: 650 mg Aspirin (Asa -) 81 mg PO DAILY [facility] Last Admin: 04/18/17 18:06 Dose: Not Given Bupropion HCl (Wellbutrin Xl -) 150 mg PO DAILY [facility] Last Admin: 04/18/17 09:37 Dose: Not Given Calcium Carbonate/Cholecalciferol (Os-Tab 500+D -) 1 tab PO BID [facility] Last Admin: 04/18/17 21:21 Dose: 1 tab Cyanocobalamin (Vitamin B12 -) 1,000 mcg PO DAILY [facility] Last Admin: 04/18/17 09:37 Dose: Not Given Duloxetine HCl (Cymbalta -) 20 mg PO HS [facility] Last Admin: 04/18/17 21:20 Dose: 20 mg Enoxaparin Sodium (Lovenox -) 40 mg SQ DAILY [facility] Last Admin: 04/18/17 09:36 Dose: 40 mg Ferrous Sulfate (Feosol -) 325 mg PO BIDWM [facility] Last Admin: 04/18/17 17:18 Dose: 325 mg Potassium Chloride/Dextrose/Sod Cl (D5-1/2ns+20 Meq Kcl -) 20 meq in 1,000 mls @ 100 mls/hr IV ASDIR [facility] Last Admin: 04/19/17 06:59 Dose: 100 mls/hr Ceftriaxone Sodium 1 gm/ (Sodium Chloride) 100 mls @ 200 mls/hr IVPB DAILY@ 2200 [facility] Last Admin: 04/18/17 21:19 Dose: 200 mls/hr Metoprolol Tartrate (Lopressor -) 25 mg PO BID [facility] Last Admin: 04/18/17 21:20 Dose: 25 mg Morphine Sulfate (Morphine Injection -) 2 mg IVPUSH Q3H PRN PRN Reason: PAIN Last Admin: 04/18/17 22:37 Dose: 2 mg Ondansetron HCl (Zofran Injection) 4 mg IVPUSH Q6H PRN PRN Reason: NAUSEA AND/OR VOMITING Senna (Senna -) 2 tab PO HS [facility] Last Admin: 04/18/17 21:21 Dose: 2 tab Zinc Sulfate (Orazinc -) 220 mg PO DAILY [facility] Last Admin: 04/18/17 09:37 Dose: Not Given CBC, BMP 04/18/17 06:00 04/18/17 06:00 Microbiology 04/17/17 09:05 Blood Culture - Preliminary Blood - Peripheral Venous NO GROWTH OBTAINED AFTER 48 HOURS, INCUBATION TO CONTINUE FOR 3 DAYS. 04/17/17 08:20 Blood Culture - Preliminary Blood - Peripheral Venous NO GROWTH OBTAINED AFTER 48 HOURS, INCUBATION TO CONTINUE FOR 3 DAYS. Physical Exam Constitutional: Yes: No Distress, Calm Neck: Yes: Supple Cardiovascular: Yes: Regular Rate and Rhythm, Tachycardia Respiratory: Yes: CTA Bilaterally Gastrointestinal: Yes: Soft Edema: No Wound/Incision: Yes: Dressing Dry and Intact Neurological: Yes: Other (more awake- answers simple questions) a/p better continue present care physical therapy encourage eating d/c planning anticipate tomorrow if stable discussed with nursing staff Problem List - Problems (1) Anemia Code(s): D64.9 - ANEMIA, UNSPECIFIED Qualifiers: Anemia type: unspecified type Qualified Code(s): D64.9 - Anemia, unspecified (2) CAD (coronary artery disease) Code(s): I25.10 - ATHSCL HEART DISEASE OF [place] CORONARY ARTERY W/O ANG PCTRS Qualifiers: Coronary Disease-Associated Artery/Lesion type: [place] artery [place] vs. transplanted heart: [place] heart Associated angina: without angina Qualified Code(s): I25.10 - Atherosclerotic heart disease of [place] coronary artery without angina pectoris (3) Dementia Code(s): F03.90 - UNSPECIFIED DEMENTIA WITHOUT BEHAVIORAL DISTURBANCE Qualifiers: Dementia type: unspecified type Dementia behavioral disturbance: without behavioral disturbance Qualified Code(s): F03.90 - Unspecified dementia without behavioral disturbance (4) Diabetes mellitus Code(s): E11.9 - TYPE 2 DIABETES MELLITUS WITHOUT COMPLICATIONS Qualifiers: Diabetes mellitus type: type 2 (5) Hip fracture Code(s): S72.009A - FRACTURE OF UNSP PART OF NECK OF UNSP FEMUR, INIT Qualifiers: Encounter type: subsequent encounter
[2017-04-19] MEDS: METOPROLOL TARTRATE 25 MG TABLET (FP) PO SCH ×2 (09:48→22:02)
[2017-04-19] MEDS: ZINC SULFATE 220 MG CAPSULE (FP) PO SCH (09:48)
[2017-04-19] MEDS: ENOXAPARIN NA (PORCINE) 40 MG/0.4 ML DISP.SYRIN SQ SCH (09:48)
[2017-04-19] MEDS: CALCIUM 500MG/VIT-D 200 UNITS COMBO TABLET (FP) PO SCH ×2 (09:49→22:02)
[2017-04-19] MEDS: CYANOCOBALAMIN 1,000 MCG TABLET (FP) PO SCH (09:49)
[2017-04-19] MEDS: morphine CARPU-JECT 2 MG/1 ML DISP.SYRIN IVPUSH PRN (10:20)
--- NOTE | 2017-04-19 11:00 | PN ---
Progress Note, Physician History of Present Illness: Mental status improving, more interactive, tolerating dysphagia diet. Denies complaints, HR and ischemic EKG changes improving with resumption of beta- blockers and pRBC transfusion. - Current Medication List Current Medications: Active Medications Acetaminophen (Tylenol -) 650 mg PO Q6H PRN PRN Reason: FEVER OR PAIN Last Admin: 04/18/17 21:30 Dose: 650 mg Aspirin (Asa -) 81 mg PO DAILY [facility] Last Admin: 04/19/17 09:42 Dose: 81 mg Bupropion HCl (Wellbutrin Xl -) 150 mg PO DAILY [facility] Last Admin: 04/19/17 09:49 Dose: 150 mg Calcium Carbonate/Cholecalciferol (Os-Tab 500+D -) 1 tab PO BID [facility] Last Admin: 04/19/17 09:49 Dose: 1 tab Cyanocobalamin (Vitamin B12 -) 1,000 mcg PO DAILY [facility] Last Admin: 04/19/17 09:49 Dose: 1,000 mcg Duloxetine HCl (Cymbalta -) 20 mg PO HS [facility] Last Admin: 04/18/17 21:20 Dose: 20 mg Enoxaparin Sodium (Lovenox -) 40 mg SQ DAILY [facility] Last Admin: 04/19/17 09:48 Dose: 40 mg Ferrous Sulfate (Feosol -) 325 mg PO BIDWM [facility] Last Admin: 04/19/17 09:00 Dose: 325 mg Potassium Chloride/Dextrose/Sod Cl (D5-1/2ns+20 Meq Kcl -) 20 meq in 1,000 mls @ 100 mls/hr IV ASDIR [facility] Last Admin: 04/19/17 06:59 Dose: 100 mls/hr Ceftriaxone Sodium 1 gm/ (Sodium Chloride) 100 mls @ 200 mls/hr IVPB DAILY@ 2200 [facility] Last Admin: 04/18/17 21:19 Dose: 200 mls/hr Metoprolol Tartrate (Lopressor -) 25 mg PO BID [facility] Last Admin: 04/19/17 09:48 Dose: 25 mg Morphine Sulfate (Morphine Injection -) 2 mg IVPUSH Q3H PRN PRN Reason: PAIN Last Admin: 04/19/17 10:20 Dose: 2 mg Ondansetron HCl (Zofran Injection) 4 mg IVPUSH Q6H PRN PRN Reason: NAUSEA AND/OR VOMITING Senna (Senna -) 2 tab PO HS [facility] Last Admin: 04/18/17 21:21 Dose: 2 tab Zinc Sulfate (Orazinc -) 220 mg PO DAILY [facility] Last Admin: 04/19/17 09:48 Dose: 220 mg - Objective Vital Signs: Vital Signs Temperature 97.4 F L 04/19/17 06:00 Pulse Rate 61 04/19/17 06:00 Respiratory Rate 20 04/19/17 06:00 Blood Pressure 105/58 04/19/17 06:00 O2 Sat by Pulse Oximetry (%) 99 04/18/17 21:00 Constitutional: Yes: No Distress, Calm, Thin Neck: Yes: Supple Cardiovascular: Yes: Regular Rate and Rhythm Respiratory: Yes: Regular, Diminished Gastrointestinal: Yes: Normal Bowel Sounds, Soft Edema: No Labs: CBC, BMP 04/18/17 06:00 04/18/17 06:00 INR, PTT INR 1.19 (0.82-1.09) H 04/15/17 01:09 - ....Imaging EKG: Report Reviewed (ST @ 108 RBBB with improving anterolateral ischemic changes) Problem List - Problems (1) Hypertensive cardiomyopathy Code(s): I11.9 - HYPERTENSIVE HEART DISEASE WITHOUT HEART FAILURE; I43 - CARDIOMYOPATHY IN DISEASES CLASSIFIED ELSEWHERE Qualifiers: Heart failure presence: without heart failure Qualified Code(s): I11.9 - Hypertensive heart disease without heart failure; I43 - Cardiomyopathy in diseases classified elsewhere; I43 - Cardiomyopathy in diseases classified elsewhere; I43 - Cardiomyopathy in diseases classified elsewhere; I43 - Cardiomyopathy in diseases classified elsewhere (2) Anemia Code(s): D64.9 - ANEMIA, UNSPECIFIED Qualifiers: Anemia type: unspecified type Qualified Code(s): D64.9 - Anemia, unspecified (3) CAD (coronary artery disease) Code(s): I25.10 - ATHSCL HEART DISEASE OF [place] CORONARY ARTERY W/O ANG PCTRS Qualifiers: Coronary Disease-Associated Artery/Lesion type: [place] artery [place] vs. transplanted heart: [place] heart Associated angina: without angina Qualified Code(s): I25.10 - Atherosclerotic heart disease of [place] coronary artery without angina pectoris (4) Dementia Code(s): F03.90 - UNSPECIFIED DEMENTIA WITHOUT BEHAVIORAL DISTURBANCE Qualifiers: Dementia type: unspecified type Dementia behavioral disturbance: without behavioral disturbance Qualified Code(s): F03.90 - Unspecified dementia without behavioral disturbance (5) Diabetes mellitus Code(s): E11.9 - TYPE 2 DIABETES MELLITUS WITHOUT COMPLICATIONS Qualifiers: Diabetes mellitus type: type 2 (6) HLD (hyperlipidemia) Code(s): E78.5 - HYPERLIPIDEMIA, UNSPECIFIED Qualifiers: Hyperlipidemia type: pure hypercholesterolemia Qualified Code(s): E78.00 - Pure hypercholesterolemia, unspecified; E78.0 - Pure hypercholesterolemia (7) Hip fracture Code(s): S72.009A - FRACTURE OF UNSP PART OF NECK OF UNSP FEMUR, INIT Qualifiers: Encounter type: subsequent encounter (8) Ischemic heart disease due to coronary artery obstruction Code(s): I24.0 - ACUTE CORONARY THROMBOSIS NOT RESULTING IN MYOCARDIAL INFRC Assessment/Plan 1. POD#3 left hip IM nail 2. Anemia post transfusion 3. Hypokalemia resolved 4. HTN 5. CAD with ischemic EKG changes improved with med resumption and pRBC transfusion 6. Hyperlipidemia 7. Dementia P:1. Transfused to maintain Hgb>8.0 2. Continue ASA 81 qd, metoprolol 25 bid mixed with apple sauce 3. Analgesia as needed 4. DVT prophylaxis 5. Dysphagia pureed diet per S&S 6. Empiric abx
--- NOTE | 2017-04-19 15:31 | PN ---
Progress Note (short form) - Note Progress Note: Pt lying in bed. Again confused but conversing. Last Vital Signs Temp Pulse Resp BP Pulse Ox 98.3 F 114 H 18 95/64 99 04/19/17 14:40 04/19/17 14:40 04/19/17 14:40 04/19/17 14:40 04/18/17 21:00 LLE dressings with no additional spotting calves soft NT ehl fhl ta g s intact sens int to LT 2+ dp hct 27 wbc 13 a/p: POD 3 L hip IM nail -pain control -dvt proph -rehab -hct appears stable today, continue to follow -still tachycardic without elevated wbc despite abx, no evidence of wound infection at this point
[2017-04-19] MEDS ORDERED: PT OWN MED DRAWER 7, Y5N ONE (21:28)
[2017-04-19] MEDS: DULoxetine HCL 20 MG CAPSULE.DR (FP) PO SCH (22:02)
[2017-04-19] MEDS: SENNOSIDES 8.6MG TABLET (FP) PO SCH (22:02)
[2017-04-19] MEDS: ACETAMINOPHEN 325 MG TABLET (FP) PO PRN (22:23)
[2017-04-19] MEDS ORDERED: CEFTRIAXONE 1 G/50 ML PREMIX 50 ML IVPB SCH (23:00)
[2017-04-20] MEDS: CEFTRIAXONE 1 GM in SODIUM CHLORIDE 100 ML IVPB SCH (00:59)
[2017-04-20] MEDS: D5-1/2NS+20 MEQ KCL - 20 MEQ/1,000 ML INFUS.BAG IV SCH (02:07)
[2017-04-20] MEDS: FERROUS SO4 325 MG TABLET (FP) PO SCH ×2 (08:52→17:41)
[2017-04-20 09:00] LABS: BASO % 0.3 % (0-2.0); HEMATOCRIT 26.5 % (35.4-49); HEMOGLOBIN 8.5 GM/dL (11.7-16.9); MCH 29.3 pg (25.7-33.7); MCHC 32.2 g/dl (32.0-35.9); MEAN CELL VOLUME 91.1 fl (80-96); MEAN PLT VOLUME 8.5 fl (7.5-11.1); MONO % 4.3 % (3.8-10.2); NEUT % 77.4 % (42.8-82.8); PLATELET COUNT 320 K/MM3 (134-434); RBC 2.91 M/mm3 (4.00-5.60); RDW 16.1 % (11.9-15.9); WHITE BLOOD COUNT 14.3 K/mm3 (4.0-10.0)
[2017-04-20 09:45] LABS: CHLORIDE 118 mmol/L (98-107); POTASSIUM 4.7 mmol/L (3.5-5.1); SODIUM 145 mmol/L (136-145)
[2017-04-20 09:52] LABS: ALBUMIN 2.2 g/dl (3.4-5.0); ALK PHOS 77 U/L (45-117); ANION GAP 10 (8-16); BILIRUBIN,TOTAL 1.1 mg/dL (0.2-1.0); BLOOD UREA NITROGEN 33 mg/dL (7-18); CALCIUM 8.2 mg/dL (8.5-10.1); CO2 17 mmol/L (21-32); GLUCOSE,RANDOM 138 mg/dL (74-106); TOT PROT 5.5 g/dl (6.4-8.2)
[2017-04-20 09:56] LABS: SGOT/AST 986 U/L (15-37); SGPT/ALT 469 U/L (12-78)
--- NOTE | 2017-04-20 10:37 | PN ---
Progress Note, Physician History of Present Illness: Mental status improving, more interactive, but has decreased oral intake. Denies complaints, continued tachycardia despite beta-blockade. - Current Medication List Current Medications: Active Medications Acetaminophen (Tylenol -) 650 mg PO Q6H PRN PRN Reason: FEVER OR PAIN Last Admin: 04/19/17 22:23 Dose: 650 mg Aspirin (Asa -) 81 mg PO DAILY [facility] Last Admin: 04/19/17 09:42 Dose: 81 mg Bupropion HCl (Wellbutrin Xl -) 150 mg PO DAILY [facility] Last Admin: 04/19/17 09:49 Dose: 150 mg Calcium Carbonate/Cholecalciferol (Os-Tab 500+D -) 1 tab PO BID [facility] Last Admin: 04/19/17 22:02 Dose: 1 tab Cyanocobalamin (Vitamin B12 -) 1,000 mcg PO DAILY [facility] Last Admin: 04/19/17 09:49 Dose: 1,000 mcg Duloxetine HCl (Cymbalta -) 20 mg PO HS [facility] Last Admin: 04/19/17 22:02 Dose: 20 mg Enoxaparin Sodium (Lovenox -) 40 mg SQ DAILY [facility] Last Admin: 04/19/17 09:48 Dose: 40 mg Ferrous Sulfate (Feosol -) 325 mg PO BIDWM [facility] Last Admin: 04/20/17 08:52 Dose: 325 mg Potassium Chloride/Dextrose/Sod Cl (D5-1/2ns+20 Meq Kcl -) 20 meq in 1,000 mls @ 100 mls/hr IV ASDIR [facility] Last Admin: 04/20/17 02:07 Dose: 100 mls/hr CEFTRIAXONE 1 G/50 ML PREMIX (Ceftriaxone 1 Gm-D5w Bag) 50 mls @ 100 mls/hr IVPB DAILY@2200 [facility] Stop: 04/23/17 22:29 Last Admin: 04/19/17 23:42 Dose: 100 mls/hr Metoprolol Tartrate (Lopressor -) 25 mg PO BID [facility] Last Admin: 04/19/17 22:02 Dose: 25 mg Morphine Sulfate (Morphine Injection -) 2 mg IVPUSH Q3H PRN PRN Reason: PAIN Last Admin: 04/19/17 10:20 Dose: 2 mg Ondansetron HCl (Zofran Injection) 4 mg IVPUSH Q6H PRN PRN Reason: NAUSEA AND/OR VOMITING Senna (Senna -) 2 tab PO HS [facility] Last Admin: 04/19/17 22:02 Dose: 2 tab Zinc Sulfate (Orazinc -) 220 mg PO DAILY [facility] Last Admin: 04/19/17 09:48 Dose: 220 mg - Objective Vital Signs: Vital Signs Temperature 98.3 F 04/20/17 08:00 Pulse Rate 118 H 04/20/17 08:00 Respiratory Rate 20 04/20/17 08:00 Blood Pressure 110/66 04/20/17 08:00 O2 Sat by Pulse Oximetry (%) 96 04/20/17 08:57 Constitutional: Yes: No Distress, Calm, Thin Neck: Yes: Supple Cardiovascular: Yes: Tachycardia Respiratory: Yes: Regular, Diminished Gastrointestinal: Yes: Normal Bowel Sounds, Soft Edema: No Labs: CBC, BMP 04/20/17 08:00 04/20/17 08:00 INR, PTT INR 1.19 (0.82-1.09) H 04/15/17 01:09 Problem List - Problems (1) Hypertensive cardiomyopathy Code(s): I11.9 - HYPERTENSIVE HEART DISEASE WITHOUT HEART FAILURE; I43 - CARDIOMYOPATHY IN DISEASES CLASSIFIED ELSEWHERE Qualifiers: Heart failure presence: without heart failure Qualified Code(s): I11.9 - Hypertensive heart disease without heart failure; I43 - Cardiomyopathy in diseases classified elsewhere; I43 - Cardiomyopathy in diseases classified elsewhere; I43 - Cardiomyopathy in diseases classified elsewhere; I43 - Cardiomyopathy in diseases classified elsewhere (2) Anemia Code(s): D64.9 - ANEMIA, UNSPECIFIED Qualifiers: Anemia type: unspecified type Qualified Code(s): D64.9 - Anemia, unspecified (3) CAD (coronary artery disease) Code(s): I25.10 - ATHSCL HEART DISEASE OF [place] CORONARY ARTERY W/O ANG PCTRS Qualifiers: Coronary Disease-Associated Artery/Lesion type: [place] artery [place] vs. transplanted heart: [place] heart Associated angina: without angina Qualified Code(s): I25.10 - Atherosclerotic heart disease of [place] coronary artery without angina pectoris (4) Dementia Code(s): F03.90 - UNSPECIFIED DEMENTIA WITHOUT BEHAVIORAL DISTURBANCE Qualifiers: Dementia type: unspecified type Dementia behavioral disturbance: without behavioral disturbance Qualified Code(s): F03.90 - Unspecified dementia without behavioral disturbance (5) Diabetes mellitus Code(s): E11.9 - TYPE 2 DIABETES MELLITUS WITHOUT COMPLICATIONS Qualifiers: Diabetes mellitus type: type 2 (6) HLD (hyperlipidemia) Code(s): E78.5 - HYPERLIPIDEMIA, UNSPECIFIED Qualifiers: Hyperlipidemia type: pure hypercholesterolemia Qualified Code(s): E78.00 - Pure hypercholesterolemia, unspecified; E78.0 - Pure hypercholesterolemia (7) Hip fracture Code(s): S72.009A - FRACTURE OF UNSP PART OF NECK OF UNSP FEMUR, INIT Qualifiers: Encounter type: subsequent encounter (8) Ischemic heart disease due to coronary artery obstruction Code(s): I24.0 - ACUTE CORONARY THROMBOSIS NOT RESULTING IN MYOCARDIAL INFRC (9) Abnormal LFTs Code(s): R79.89 - OTHER SPECIFIED ABNORMAL FINDINGS OF BLOOD CHEMISTRY (10) DVT prophylaxis Code(s): BCQ2778 - Assessment/Plan 1. POD#4 left hip IM nail 2. Anemia post transfusion 3. Hypokalemia resolved 4. HTN 5. CAD with ischemic EKG changes improved with med resumption and pRBC transfusion 6. Hyperlipidemia 7. Dementia 8. Elevated LFTs 9. Sinus tachycardia persistent (post-op) P:1. Transfused to maintain Hgb>8.0 2. Continue ASA 81 qd, increase metoprolol 25 tid mixed with apple sauce 3. Analgesia as needed 4. DVT prophylaxis 5. Dysphagia pureed diet per S&S 6. Empiric abx course 7. Check EKG, trend LFTs, echo, check TSH 8. Chest CTA r/o post-op PE
[2017-04-20] MEDS ORDERED: PT OWN MED DRAWER 7, Y5N ONE (10:47)
[2017-04-20] MEDS: ZINC SULFATE 220 MG CAPSULE (FP) PO SCH (10:49)
[2017-04-20] MEDS: METOPROLOL TARTRATE 25 MG TABLET (FP) PO SCH ×4 (10:49→23:43)
[2017-04-20] MEDS: CALCIUM 500MG/VIT-D 200 UNITS COMBO TABLET (FP) PO SCH ×2 (10:49→23:42)
[2017-04-20] MEDS: ASPIRIN 81 MG CHEWABLE TABLETS PO SCH (10:49)
[2017-04-20] MEDS: ENOXAPARIN NA (PORCINE) 40 MG/0.4 ML DISP.SYRIN SQ SCH (10:50)
[2017-04-20] MEDS: CYANOCOBALAMIN 1,000 MCG TABLET (FP) PO SCH (10:50)
--- NOTE | 2017-04-20 10:58 | PN ---
Progress Note (short form) - Note Progress Note: patient seen and examined today awake and comfortable Denies pain Poor historian Chronic ill appearance Appetite--moderate On IV fluids Family has refused NG tube--feeding. He remains tachycardic elevated liver enzymes today Vital Signs Temp 98.3 F 04/20/17 08:00 Pulse 118 H 04/20/17 08:00 Resp 20 04/20/17 08:00 BP 110/66 04/20/17 08:00 Pulse Ox 96 04/20/17 08:57 Intake & Output 04/19/17 04/19/17 04/20/17 11:59 23:59 11:59 Intake Total 1150 1200 1050 Balance 1150 1200 1050 Intake: IV 1150 1200 1000 D5-1/2NS+20 MEQ KCL - 20 1150 1200 1000 meq In 1,000 ml @ 100 mls /hr IV ASDIR [facility] Rx#: [id number] IVPB 50 Other: Voiding Method Diaper Diaper Diaper # Unmeasured Voids Void 2 2 Bowel Movement No No Active Medications Acetaminophen (Tylenol -) 650 mg PO Q6H PRN PRN Reason: FEVER OR PAIN Last Admin: 04/19/17 22:23 Dose: 650 mg Aspirin (Asa -) 81 mg PO DAILY [facility] Last Admin: 04/19/17 09:42 Dose: 81 mg Bupropion HCl (Wellbutrin Xl -) 150 mg PO DAILY [facility] Last Admin: 04/19/17 09:49 Dose: 150 mg Calcium Carbonate/Cholecalciferol (Os-Tab 500+D -) 1 tab PO BID [facility] Last Admin: 04/19/17 22:02 Dose: 1 tab Cyanocobalamin (Vitamin B12 -) 1,000 mcg PO DAILY [facility] Last Admin: 04/19/17 09:49 Dose: 1,000 mcg Duloxetine HCl (Cymbalta -) 20 mg PO HS [facility] Last Admin: 04/19/17 22:02 Dose: 20 mg Enoxaparin Sodium (Lovenox -) 40 mg SQ DAILY [facility] Last Admin: 04/19/17 09:48 Dose: 40 mg Ferrous Sulfate (Feosol -) 325 mg PO BIDWM [facility] Last Admin: 04/20/17 08:52 Dose: 325 mg Potassium Chloride/Dextrose/Sod Cl (D5-1/2ns+20 Meq Kcl -) 20 meq in 1,000 mls @ 100 mls/hr IV [facility] Last Admin: 04/20/17 02:07 Dose: 100 mls/hr CEFTRIAXONE 1 G/50 ML PREMIX (Ceftriaxone 1 Gm-D5w Bag) 50 mls @ 100 mls/hr IVPB DAILY@2200 [facility] Stop: 04/23/17 22:29 Last Admin: 04/19/17 23:42 Dose: 100 mls/hr Metoprolol Tartrate (Lopressor -) 25 mg PO TID [facility] Morphine Sulfate (Morphine Injection -) 2 mg IVPUSH Q3H PRN PRN Reason: PAIN Last Admin: 04/19/17 10:20 Dose: 2 mg Ondansetron HCl (Zofran Injection) 4 mg IVPUSH Q6H PRN PRN Reason: NAUSEA AND/OR VOMITING Senna (Senna -) 2 tab PO HS [facility] Last Admin: 04/19/17 22:02 Dose: 2 tab Zinc Sulfate (Orazinc -) 220 mg PO DAILY [facility] Last Admin: 04/19/17 09:48 Dose: 220 mg CBC, BMP 04/20/17 08:00 04/20/17 08:00 CMP Sodium 145 mmol/L (136-145) 04/20/17 08:00 Potassium 4.7 mmol/L (3.5-5.1) 04/20/17 08:00 Chloride 118 mmol/L (98-107) H 04/20/17 08:00 Carbon Dioxide 17 mmol/L (21-32) L 04/20/17 08:00 Anion Gap 10 (8-16) 04/20/17 08:00 BUN 33 mg/dL (7-18) H D 04/20/17 08:00 Creatinine 1.0 mg/dL (0.7-1.3) 04/20/17 08:00 Creat Clearance w eGFR > 60 (>60) 04/20/17 08:00 Random Glucose 138 mg/dL (74-106) H 04/20/17 08:00 Calcium 8.2 mg/dL (8.5-10.1) L 04/20/17 08:00 Phosphorus 4.1 mg/dL (2.5-4.9) 04/15/17 06:50 Magnesium 2.0 mg/dL (1.8-2.4) D 04/17/17 09:30 Iron 23 ug/dL (38-169) L 04/15/17 06:50 TIBC 161 ug/dL (250-450) L 04/15/17 06:50 Iron Saturation 14 % (15-55) L 04/15/17 06:50 Ferritin 355.955 ng/ml (16.4-293.9) H 04/15/17 06:50 Total Bilirubin 1.1 mg/dL (0.2-1.0) H D 04/20/17 08:00 AST 986 U/L (15-37) H D 04/20/17 08:00 ALT 469 U/L (12-78) H D 04/20/17 08:00 Alkaline Phosphatase 77 U/L (45-117) 04/20/17 08:00 Total Protein 5.5 g/dl (6.4-8.2) L 04/20/17 08:00 Albumin 2.2 g/dl (3.4-5.0) L 04/20/17 08:00 Microbiology 04/17/17 09:05 Blood Culture - Preliminary Blood - Peripheral Venous NO GROWTH OBTAINED AFTER 72 HOURS, INCUBATION TO CONTINUE FOR 2 DAYS. 04/17/17 08:20 Blood Culture - Preliminary Blood - Peripheral Venous NO GROWTH OBTAINED AFTER 72 HOURS, INCUBATION TO CONTINUE FOR 2 DAYS. Physical Exam Constitutional: Yes: No Distress, looks weak Neck: Yes: Supple Cardiovascular: Yes: Regular Rate and Rhythm, Tachycardia Respiratory: Yes: CTA Bilaterally Gastrointestinal: Yes: Soft/ non tender Edema: No Wound/Incision: Yes: Dressing Dry and Intact Neurological: Yes: Other (more awake- answers simple questions) a/p patient's liver enzymes are elevated today--significantly Discontinue Tylenol discontinue Rocephin--- May be due to Rocephin patient has no fever Urine culture was negative Observe off antibiotics for now Abdomen is soft check ultrasound of the liver Will consult GI also Follow-up labs Overall condition guarded We will follow Patient is DNR and DI Problem List - Problems (1) Anemia Code(s): D64.9 - ANEMIA, UNSPECIFIED Qualifiers: Anemia type: unspecified type Qualified Code(s): D64.9 - Anemia, unspecified (2) CAD (coronary artery disease) Code(s): I25.10 - ATHSCL HEART DISEASE OF [place] CORONARY ARTERY W/O ANG PCTRS Qualifiers: Coronary Disease-Associated Artery/Lesion type: [place] artery [place] vs. transplanted heart: [place] heart Associated angina: without angina Qualified Code(s): I25.10 - Atherosclerotic heart disease of [place] coronary artery without angina pectoris (3) Dementia Code(s): F03.90 - UNSPECIFIED DEMENTIA WITHOUT BEHAVIORAL DISTURBANCE Qualifiers: Dementia type: unspecified type Dementia behavioral disturbance: without behavioral disturbance Qualified Code(s): F03.90 - Unspecified dementia without behavioral disturbance (4) Diabetes mellitus Code(s): E11.9 - TYPE 2 DIABETES MELLITUS WITHOUT COMPLICATIONS Qualifiers: Diabetes mellitus type: type 2 (5) Hip fracture Code(s): S72.009A - FRACTURE OF UNSP PART OF NECK OF UNSP FEMUR, INIT Qualifiers: Encounter type: subsequent encounter
[2017-04-20] MEDS: DEXTROSE 5%-NORMAL SALINE 1,000 ML IV SCH (15:06)
--- NOTE | 2017-04-20 15:29 | PN ---
Progress Note, [employer] - Note Progress Note: Selected Entries 04/19/17 04/19/17 04/19/17 01:13 05:54 06:00 Breakfast Lunch Supper Temperature 98 F 98 F 97.4 F L 04/19/17 04/19/17 04/19/17 09:46 10:00 14:40 Breakfast 25% Lunch 25% Supper Temperature 97.7 F 98.3 F 04/19/17 04/19/17 04/19/17 21:36 22:00 23:40 Breakfast Lunch Supper 25% Temperature 98.3 F 99.2 F 98.2 F 04/20/17 04/20/17 04/20/17 02:00 06:23 08:00 Breakfast Lunch Supper Temperature 9703 F H 98.2 F 98.3 F 04/20/17 15:13 Breakfast 25% Lunch 0 Supper Temperature 98 F Laboratory Tests 04/18/17 04/20/17 03:55 08:00 WBC 11[address] chest noted. Accepted small amounts of puree and honey thick. Swallow is delayed, at times not triggered, with intermittent delayed cough. HCP did not want NGT. Case reviewed with GI and Nursing. IMP: Suspect pt is aspirating and not receiving sufficient nutrition and hydration by mouth. REC: NPO Palliative care PEG insertion with small amount of PO for pleasure, as tolerated vs comfort care /hospice
--- NOTE | 2017-04-20 15:53 | PN ---
Progress Note (short form) - Note Progress Note: Pt lying in bed. Baseline MS. Last Vital Signs Temp Pulse Resp BP Pulse Ox 98 F 124 H 20 117/75 96 04/20/17 15:13 04/20/17 15:13 04/20/17 08:00 04/20/17 15:13 04/20/17 08:57 LLE dressings with stable spotting calves soft NT ehl fhl ta g s intact sens int to LT 2+ dp Abnormal Lab Results 04/15/17 04/20/17 04/20/17 11:13 08:00 08:00 WBC 14.3 H RBC 2.91 L Hgb 8.5 L Hct 26.5 L RDW 16.1 H Chloride 118 H Carbon Dioxide 17 L BUN 33 H D Random Glucose 138 H Calcium 8.2 L Total Bilirubin 1.1 H D AST 986 H D ALT 469 H D Total Protein 5.5 L Albumin 2.2 L Crossmatch See Detail a/p: POD 4 L hip IM nail -pain control -dvt proph -rehab -hct appears stable today -still tachycardic and wbc trending up. no evidence for op site infection. ct shows no PE.
[2017-04-20] MEDS: DULoxetine HCL 20 MG CAPSULE.DR (FP) PO SCH (23:42)
[2017-04-20] MEDS: SENNOSIDES 8.6MG TABLET (FP) PO SCH (23:42)
[2017-04-21] MEDS: DEXTROSE 5%-NORMAL SALINE 1,000 ML IV SCH (02:00)
[2017-04-21] MEDS: METOPROLOL TARTRATE 25 MG TABLET (FP) PO SCH ×4 (06:52→22:18)
[2017-04-21 08:44] LABS: BASO % 0.7 % (0-2.0); EOS % 0.1 % (0-4.5); HEMATOCRIT 30.3 % (35.4-49); HEMOGLOBIN 9.6 GM/dL (11.7-16.9); LYMPH % 16.8 % (8-40); MCH 29.5 pg (25.7-33.7); MCHC 31.6 g/dl (32.0-35.9); MEAN CELL VOLUME 93.3 fl (80-96); MEAN PLT VOLUME 8.9 fl (7.5-11.1); MONO % 3.5 % (3.8-10.2); NEUT % 78.9 % (42.8-82.8); PLATELET COUNT 276 K/MM3 (134-434); RBC 3.24 M/mm3 (4.00-5.60); RDW 17.4 % (11.9-15.9); WHITE BLOOD COUNT 18.2 K/mm3 (4.0-10.0)
[2017-04-21 09:04] LABS: ALBUMIN 2.1 g/dl (3.4-5.0); ANION GAP 12 (8-16); BILIRUBIN,DIRECT 0.6 mg/dL (0.0-0.2); BLOOD UREA NITROGEN 44 mg/dL (7-18); CALCIUM 8.6 mg/dL (8.5-10.1); CHLORIDE 120 mmol/L (98-107); CO2 17 mmol/L (21-32); CREATININE 1.4 mg/dL (0.7-1.3); GLUCOSE,RANDOM 105 mg/dL (74-106); POTASSIUM 4.5 mmol/L (3.5-5.1); SODIUM 149 mmol/L (136-145)
[2017-04-21 09:20] LABS: ALK PHOS 128 U/L (45-117); BILIRUBIN,TOTAL 1.4 mg/dL (0.2-1.0); TOT PROT 5.5 g/dl (6.4-8.2)
[2017-04-21 09:23] LABS: SGOT/AST 4070 U/L (15-37); SGPT/ALT 1885 U/L (12-78)
--- NOTE | 2017-04-21 09:56 | PN ---
Progress Note (short form) - Note Progress Note: Chief Complaint: Events noted, notes reviewed, POD# 5, in no distress, evaluation of LFT abnormality is in progress History of Present Illness: Seen and examined. Events noted, notes reviewed, POD# 5, in no distress, evaluation of LFT abnormality is in progress LFT abnormality indicate acute hepatic insult, question transient hypotension vs. side effect of medical therapy Echocardiography revealed wall motion abnormality with mild to moderate reduction in LV-EF, RV mild hypokinesia, MAC, severe MR, mild to moderate AI, moderate to severe TR with RVSP between 40-50 mmHg CTA of the chest report was noted - Current Medication List Current Medications Aspirin (Asa -) 81 mg PO DAILY [facility]S [facility] Last Admin: 04/20/17 10:49 Dose: 81 mg Bupropion HCl (Wellbutrin Xl -) 150 mg PO DAILY [facility]S [facility] Last Admin: 04/20/17 10:49 Dose: 150 mg Calcium Carbonate/Cholecalciferol (Os-Tab 500+D -) 1 tab PO BID [facility] 234 [facility]S [facility] Last Admin: 04/20/17 23:42 Dose: 1 tab Cyanocobalamin (Vitamin B12 -) 1,000 mcg PO DAILY [facility] 234 B[facility]S AT [facility] Last Admin: 04/20/17 10:50 Dose: 1,000 mcg Duloxetine HCl (Cymbalta -) 20 mg PO HS [facility] 234 B[facility]S [facility] Last Admin: 04/20/17 23:42 Dose: 20 mg Enoxaparin Sodium (Lovenox -) 40 mg SQ DAILY [facility] 234 BEDS AT [facility] Last Admin: 04/20/17 10:50 Dose: 40 mg Ferrous Sulfate (Feosol -) 325 mg PO BIDWM COUNTS [facility]CLUDE 234 BEDS AT [facility] Last Admin: 04/20/17 17:41 Dose: Not Given Dextrose/Sodium Chloride (D5-Ns -) 1,000 mls @ 100 mls/hr IV ASDIR COUNTS [facility]CLUDE 234 BEDS AT [facility] Stop: 04/22/17 23:59 Last Admin: 04/21/17 02:00 Dose: 100 mls/hr Metoprolol Tartrate (Lopressor -) 25 mg PO TID [facility] 234 BEDS AT [facility] Last Admin: 04/21/17 06:52 Dose: 25 mg Morphine Sulfate (Morphine Injection -) 2 mg IVPUSH Q3H PRN PRN Reason: PAIN Last Admin: 04/19/17 10:20 Dose: 2 mg Ondansetron HCl (Zofran Injection) 4 mg IVPUSH Q6H PRN PRN Reason: NAUSEA AND/OR VOMITING Senna (Senna -) 2 tab PO HS [facility] 234 BEDS [facility] Last Admin: 04/20/17 23:42 Dose: 2 tab Zinc Sulfate (Orazinc -) 220 mg PO DAILY [facility] Last Admin: 04/20/17 10:49 Dose: 220 mg - Objective Vital Signs: Last Vital Signs Temp Pulse Resp BP Pulse Ox 98.0 F 108 H 20 100/63 97 04/21/17 08:29 04/21/17 08:29 04/21/17 08:29 04/21/17 08:29 04/21/17 08:46 Intake & Output 04/18/17 04/19/17 04/20/17 04/21/17 23:59 23:59 23:59 23:59 Intake Total 2400 0 2049 Balance 2400 2349 2049 Constitutional: No Distress, Calm, Thin Neck: Supple Negative JVD No Bruit Respiratory: Diminished Breath Sounds at the Bases Bilaterally with Scattered Rhonchi Cardiovascular: S1 S2 Regular Rate and Rhythm Grade 2/6 SM Gastrointestinal: Soft Benign Normal Bowel Sounds Ext: No Edema Labs: CBC, BMP 04/21/17 07:45 04/21/17 07:45 Hepatic Panel Total Bilirubin 1.4 mg/dL (0.2-1.0) H D 04/21/17 07:45 Direct Bilirubin 0.6 mg/dL (0.0-0.2) H 04/21/17 07:45 AST 4070 U/L (15-37) H 04/21/17 07:45 ALT 1885 U/L (12-78) H D 04/21/17 07:45 Alkaline Phosphatase 128 U/L (45-117) H D 04/21/17 07:45 Albumin 2.1 g/dl (3.4-5.0) L 04/21/17 07:45 Assessment/Plan ASSESSMENT: 1. POD#5 post left hip IM nail for management of a fracture 2. CAD with ischemic EKG changes resolved on medical therapy 3. 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 Transamenitis/LFT abnormality differential as outlined above 5. HTN 6. Persistent sinus tachycardia 7. Hypercholesterolemia 8. Organic brain syndrome/dementia 9. Anemia post transfusion 10. Acute renal insufficiency, pre-renal azotemia 11. Hypernatremia PLAN: 1. Monitor CBC and transfuse to maintain Hgb > 8.0 2. Continue ASA with caution 3. Continue Metoprolol 4. Recommend the addition of ACEI or ARBS pending renal function recovery and stabilization 5. Correction of Hypernatremia, D5 1/2 NS, with caution 6. Evaluation of transamenitis as planned by the primary team Daphney Alfred M.D.
[2017-04-21] MEDS: FERROUS SO4 325 MG TABLET (FP) PO SCH ×2 (10:09→17:20)
[2017-04-21] MEDS: CYANOCOBALAMIN 1,000 MCG TABLET (FP) PO SCH (10:10)
[2017-04-21] MEDS: ASPIRIN 81 MG CHEWABLE TABLETS PO SCH (10:10)
[2017-04-21] MEDS: ENOXAPARIN NA (PORCINE) 40 MG/0.4 ML DISP.SYRIN SQ SCH (10:10)
[2017-04-21] MEDS: CALCIUM 500MG/VIT-D 200 UNITS COMBO TABLET (FP) PO SCH ×2 (10:10→22:18)
[2017-04-21] MEDS: ZINC SULFATE 220 MG CAPSULE (FP) PO SCH (10:10)
[2017-04-21] MEDS ORDERED: DEXTROSE 5%-0.45% SALINE 1,000 ML IV SCH (10:15)
--- NOTE | 2017-04-21 11:15 | EKG ---
Test Reason : Blood Pressure : / mmHG Vent. Rate : 129 BPM Atrial Rate : 129 BPM P-R Int : 208 ms QRS Dur : 140 ms QT Int : 314 ms P-R-T Axes : 051 088 -75 degrees QTc Int : 460 ms SINUS TACHYCARDIA BUT CANNOT EXCLUDE ATYPICAL ATRIAL TACHYCARDIA WITH 2:1 CONDUCTION RIGHT BUNDLE BRANCH BLOCK CANNOT RULE OUT INFERIOR INFARCT (CITED ON OR BEFORE 19-APR-2017) T WAVE ABNORMALITY, CONSIDER LATERAL ISCHEMIA ABNORMAL ECG WHEN COMPARED WITH ECG OF 19-APR-2017 09:13, FUSION COMPLEXES ARE NO LONGER PRESENT CLINICAL CORRELATION IS RECOMMENDED Confirmed by ARELI SULTANA MD ([id number]) on 04/21/2017 11:15:06 AM Referred By: Confirmed By:ARELI SULTANA MD
--- NOTE | 2017-04-21 11:21 | EKG ---
Test Reason : Blood Pressure : / mmHG Vent. Rate : 108 BPM Atrial Rate : 108 BPM P-R Int : 270 ms QRS Dur : 144 ms QT Int : 372 ms P-R-T Axes : 014 092 -45 degrees QTc Int : 498 ms SINUS TACHYCARDIA WITH 1ST DEGREE A-V BLOCK WITH FUSION COMPLEXES RIGHT BUNDLE BRANCH BLOCK T WAVE ABNORMALITY, CONSIDER LATERAL ISCHEMIA ABNORMAL ECG WHEN COMPARED WITH ECG OF 17-APR-2017 13:41, FUSION COMPLEXES ARE NOW PRESENT T WAVE INVERSION LESS EVIDENT IN ANTERIOR LEADS CLINICAL CORRELATION IS RECOMMENDED Confirmed by RD GUTIERREZ, ARELI ([id number]) on 04/21/2017 11:21:29 AM Referred By: Confirmed By:ARELI SULTANA MD
--- NOTE | 2017-04-21 13:41 | CONSULT ---
Consult Consult Specialty:: general surgery Referred by:: emory leos - KATE Reason for Consultation:: gallbladder sludge - History of Present Illness Chief Complaint: gallbladder sludge History of Present Illness: 82 y/o male PMH dementia, CAD, HTN, Hyperlipdemia, cardiomyopathy presented s/p fall out of wheelchair. Sustained a left hip fracture that required an left IM gamma nail. in the post op period the patient was doing well and was off of antibiotics. Leukocytosis and Transaminitis withing the last 24hours, patient was worked up and found to have a pneumonia and pleural effusions and also the gallbladder showed sludge. we were asked to assess. - History Source History Provided By: Medical Record Limitations to Obtaining History: Clinical Condition - Past Medical History [employer] REP: Yes: Dementia Cardio/Vascular: Yes: CAD, HTN, Hyperlipdemia, Other (Cardiomyopathy) Pulmonary: No: Asthma, Bronchitis, Cancer, COPD, O2 Dependent, Pneumonia, Previously Intubated, Pulmonary Embolus, Pulmonary Fibrosis, Sleep Apnea, Other Gastrointestinal: No: Ascites, Cancer, Constipation, Crohn's Disease, Diverticulitis, Diverticulosis, Esophageal Varices, Gastritis, GERD, GI Bleed, Hemorrhoids, Hiatal Hernia, Inflamatory Bowel Disease, Irritable Bowel Disease, Pancreatitis, Peptic Ulcer Disease, Ulcerative Colitis, Other Hepatobiliary: No: Cirrhosis, Cholelithiasis, Cholecystitis, Choledocholithiasis , Hepatitis A, Hepatitis B, Hepatitis C, Other Renal/: No: Renal Failure, Renal Inusuff, BPH, Cancer, Hematuria, Hemodialysis , Neurogenic Bladder, Renal Calculi, UTI, Other Infectious Disease: No: AIDS, C-Diff, Herpes Zoster, HIV, MRSA, STD's, Tuberculosis, VREF, Other Psych: Yes: Depression Musculoskeletal: Yes: Other Rheumatology: No: Fibromyalgia, Gout, Lupus, Rheumatoid Arthritis, Sarcoidosis, Vasculitis, Other ENT: No: Allergic Rhinitis, Sinusitis, Other Endocrine: Yes: Diabetes Mellitus Dermatology: No: Basal Cell, Cellulitis, Eczema, Melanoma, Psoriasis, Squamous Cell, Other - Past Surgical History Past Surgical History: Yes: Joint Replacement (Right Hip Pinning) - Alcohol/Substance Use Hx Alcohol Use: No History of Substance Use: reports: None - Smoking History Smoking history: Never smoked Have you smoked in the past 12 months: No - Social History ADL: Support Services 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: No Home Medications - Allergies Allergies/Adverse Reactions: Allergies Allergy/AdvReac Type Severity Reaction Status Date / Time No Known Allergies Allergy Verified 04/15/17 00:35 - Home Medications Home Medications: Ambulatory Orders Ascorbic Acid [Vitamin C] 500 mg PO DAILY 04/15/17 Aspirin 81 mg PO DAILY 04/15/17 Bupropion HCl [Bupropion HCl Sr] 150 mg PO DAILY 04/15/17 Cyanocobalamin [Vitamin B12 -] 1 tab PO DAILY 04/15/17 Duloxetine HCl 20 mg PO HS 04/15/17 Furosemide [Lasix -] 40 mg PO DAILY 04/15/17 Metoprolol Succinate 50 mg PO DAILY 04/15/17 Sennosides [Senna] 2 tab PO HS 04/15/17 Zinc Sulfate 220 mg PO DAILY 04/15/17 Review of Systems - Review of Systems Constitutional: denies: Chills, Fever Eyes: denies: Blurred Vision, Recent Change in Vision HENT: reports: Difficult Swallowing. denies: Nasal Congestion Neck: reports: Decreased ROM, Pain on Movement Cardiovascular: denies: Chest Pain, Palpitations Respiratory: reports: SOB. denies: Cough Gastrointestinal: reports: Constipation, Dysphagia. denies: Abdominal Pain Genitourinary: denies: Burning, Discharge, Dysuria Breasts: reports: No Symptoms Reported. denies: Pain Musculoskeletal: denies: Muscle Cramps, Muscle Weakness Integumentary: denies: Lesions, Rash Neurological: denies: Change in LOC, Change in Speech Endocrine: denies: Unexplained Weight Gain, Unexplained Weight Loss Hematology/Lymphatic: denies: Easily Bruised, Excessive Bleeding Psychiatric: denies: Anxiety, Depression Physical Exam Vital Signs: Vital Signs Temperature 98.0 F 04/21/17 08:29 Pulse Rate 108 H 04/21/17 08:29 Respiratory Rate 20 04/21/17 08:29 Blood Pressure 100/63 04/21/17 08:29 O2 Sat by Pulse Oximetry (%) 97 04/21/17 08:46 Vital Signs Period Temp Pulse Resp BP Sys/[place] Pulse Ox Last 24 Hr 98.0 F-99.0 F 102-108 20-22 95-115/63-66 96-97 Intake & Output 04/21/17 04/22/17 04/22/17 23:59 07:59 15:59 Intake Total 1100 1046 Balance 1100 1046 Intake: IV 1000 996 D5-1/2Ns - 1,000 ml @ 83 500 996 mls/hr IV ASDIR ELVIA Rx#: [id number] D5-Ns - 1,000 ml @ 100 500 mls/hr IV ASDIR ELVIA Rx#: [id number] IVPB 100 50 Other: Voiding Method Incontinent # Unmeasured Voids Void 1 Bowel Movement Yes Constitutional: Yes: No Distress, Calm, Cachectic Eyes: Yes: Conjunctiva Clear, EOM Intact HENT: Yes: Atraumatic, Normocephalic Cardiovascular: Yes: Regular Rate and Rhythm, S1, S2 Respiratory: Yes: Regular, Diminished (on the right compared to left,), Rhonchi , Wheezes Gastrointestinal: Yes: Normal Bowel Sounds, Soft ...Rectal Exam: Yes: Mass, Sphincter Tone Normal Renal/: No: CVA Tenderness - Left, CVA Tenderness - Right Extremities: No: Cool, Cyanosis Edema: No Integumentary: Yes: Pressure Ulcer (sacral decubitus) Neurological: Yes: Alert, Confusion, Tremors Psychiatric: Yes: Alert Labs: CBC, BMP 04/21/17 07:45 04/21/17 07:45 Microbiology 04/17/17 09:05 Blood - Peripheral Venous Blood Culture - Preliminary NO GROWTH OBTAINED AFTER 96 HOURS, INCUBATION TO CONTINUE FOR 1 DAYS. 04/17/17 08:20 Blood - Peripheral Venous Blood Culture - Preliminary NO GROWTH OBTAINED AFTER 96 HOURS, INCUBATION TO CONTINUE FOR 1 DAYS. 04/15/17 15:00 Urine - Urine [place] Urine Culture - Final NO GROWTH OBTAINED Abnormal Lab Results 04/15/17 04/21/17 04/21/17 11:13 07:45 07:45 WBC 18.2 H RBC 3.24 L Hgb 9.6 L D Hct 30.3 L MCHC 31.6 L RDW 17.4 H Monocytes % 3.5 L Sodium 149 H Chloride 120 H Carbon Dioxide 17 L BUN 44 H D Creatinine 1.4 H D Total Bilirubin 1.4 H D Direct Bilirubin 0.6 H AST 4070 H ALT 1885 H D Alkaline Phosphatase 128 H D Total Protein 5.5 L Albumin 2.1 L Crossmatch See Detail INR, PTT INR 1.19 (0.82-1.09) H 04/15/17 01:09 Imaging - Results Cat Scan: Report Reviewed, Image Reviewed (bilateral LL consolidation and b/l pleral effusions) Ultrasound: Report Reviewed, Image Reviewed (distended GB with sludge no stones) Problem List - Problems (1) Abnormal LFTs Assessment/Plan: low grade fever, Tmax 99.8, Leukocytosis >18K and new onset transaminitis, pneumonia, shock liver versus hepatobilliary npo and ivf resuscitation Trend labs for AM CT scan Abdomen/Pelvis with IV and PO contrast - Evaluate for intrabdominal/ retroperitoneal process start broad spectrum iv antibiotics given new hardware GI evaluation will follow for serial exams Thank you for the opportunity to participate in the care of this patient. Code(s): R79.89 - OTHER SPECIFIED ABNORMAL FINDINGS OF BLOOD CHEMISTRY (2) Hip fracture Code(s): S72.009A - FRACTURE OF UNSP PART OF NECK OF UNSP FEMUR, INIT Qualifiers: Encounter type: subsequent encounter (3) CAD (coronary artery disease) Code(s): I25.10 - ATHSCL HEART DISEASE OF [place] CORONARY ARTERY W/O ANG PCTRS Qualifiers: Coronary Disease-Associated Artery/Lesion type: [place] artery [place] vs. transplanted heart: [place] heart Associated angina: without angina Qualified Code(s): I25.10 - Atherosclerotic heart disease of [place] coronary artery without angina pectoris (4) Dementia Code(s): F03.90 - UNSPECIFIED DEMENTIA WITHOUT BEHAVIORAL DISTURBANCE Qualifiers: Dementia type: unspecified type Dementia behavioral disturbance: without behavioral disturbance Qualified Code(s): F03.90 - Unspecified dementia without behavioral disturbance (5) Diabetes mellitus Code(s): E11.9 - TYPE 2 DIABETES MELLITUS WITHOUT COMPLICATIONS Qualifiers: Diabetes mellitus type: type 2
--- NOTE | 2017-04-21 13:48 | PN ---
Progress Note (short form) - Note Progress Note: pt seen/ examined awake/ weak denies pain. lethargic lfts trending up u/s shows gall bladder slugh wbcs increasing echo - noted - inferior wall hypokinesia/ moderate to severe lv dysfunction ct chest- no pe + pneumonia / pleural effusion-- moderate Vital Signs Temp 98.0 F 04/21/17 08:29 Pulse 108 H 04/21/17 08:29 Resp 20 04/21/17 08:29 BP 100/63 04/21/17 08:29 Pulse Ox 97 04/21/17 08:46 Intake & Output 04/20/17 04/21/17 04/21/17 23:59 11:59 23:59 Intake Total 1000 Balance 1000 Intake: IV 1000 D5-1/2NS+20 MEQ KCL - 20 400 meq In 1,000 ml @ 100 mls /hr IV ASDIR ELVIA Rx#: [id number] D5-Ns - 1,000 ml @ 100 600 mls/hr IV ASDIR ELVIA Rx#: [id number] Other: Voiding Method Incontinent Incontinent # Unmeasured Voids Void 2 Bowel Movement No Active Medications Aspirin (Asa -) 81 mg PO DAILY [facility] Last Admin: 04/21/17 10:10 Dose: 81 mg Bupropion HCl (Wellbutrin Xl -) 150 mg PO DAILY [facility] Last Admin: 04/21/17 10:10 Dose: 150 mg Calcium Carbonate/Cholecalciferol (Os-Tab 500+D -) 1 tab PO BID [facility] Last Admin: 04/21/17 10:10 Dose: 1 tab Cyanocobalamin (Vitamin B12 -) 1,000 mcg PO DAILY [facility] Last Admin: 04/21/17 10:10 Dose: 1,000 mcg Duloxetine HCl (Cymbalta -) 20 mg PO HS [facility] Last Admin: 04/20/17 23:42 Dose: 20 mg Enoxaparin Sodium (Lovenox -) 40 mg SQ DAILY [facility] Last Admin: 04/21/17 10:10 Dose: 40 mg Ferrous Sulfate (Feosol -) 325 mg PO BIDWM [facility] Last Admin: 04/21/17 10:09 Dose: 325 mg Dextrose/Sodium Chloride (D5-1/2ns -) 1,000 mls @ 83 mls/hr IV ASDIR [facility] Last Admin: 04/21/17 10:40 Dose: 83 mls/hr Metoprolol Tartrate (Lopressor -) 25 mg PO TID [facility] Last Admin: 04/21/17 13:35 Dose: Not Given Ondansetron HCl (Zofran Injection) 4 mg IVPUSH Q6H PRN PRN Reason: NAUSEA AND/OR VOMITING Senna (Senna -) 2 tab PO HS [facility] Last Admin: 04/20/17 23:42 Dose: 2 tab Zinc Sulfate (Orazinc -) 220 mg PO DAILY [facility] Last Admin: 04/21/17 10:10 Dose: 220 mg CBC, BMP 04/21/17 07:45 04/21/17 07:45 echo/ ct chest - as mentioned above Physical Exam Constitutional: Yes: weak Neck: Yes: Supple Cardiovascular: Yes: Regular Rate and Rhythm, Tachycardia Respiratory: Yes: CTA Bilaterally Gastrointestinal: Yes: Soft/ tenderness + ruq + Edema: No Wound/Incision: Yes: Dressing Dry and Intact Neurological: Yes: Other (awake but weak ) a/p s/p hips surgery elevated liver enzymes-- worsening gall bladder sludge pneumonia dehydration cad pleural effusion restart abx overall condition worsening surgical consult- Discussed with Dr. Crouch today gi on case discussed with HCP also again today- made aware of his condition. No feeding tube/ ngt per directions pt is dnr/ di will follow discussed with nursing staff time spend 35 min Problem List - Problems (1) Anemia Code(s): D64.9 - ANEMIA, UNSPECIFIED Qualifiers: Anemia type: unspecified type Qualified Code(s): D64.9 - Anemia, unspecified (2) CAD (coronary artery disease) Code(s): I25.10 - ATHSCL HEART DISEASE OF [place] CORONARY ARTERY W/O ANG PCTRS Qualifiers: Coronary Disease-Associated Artery/Lesion type: [place] artery [place] vs. transplanted heart: [place] heart Associated angina: without angina Qualified Code(s): I25.10 - Atherosclerotic heart disease of [place] coronary artery without angina pectoris (3) Dementia Code(s): F03.90 - UNSPECIFIED DEMENTIA WITHOUT BEHAVIORAL DISTURBANCE Qualifiers: Dementia type: unspecified type Dementia behavioral disturbance: without behavioral disturbance Qualified Code(s): F03.90 - Unspecified dementia without behavioral disturbance (4) Diabetes mellitus Code(s): E11.9 - TYPE 2 DIABETES MELLITUS WITHOUT COMPLICATIONS Qualifiers: Diabetes mellitus type: type 2 (5) Hip fracture Code(s): S72.009A - FRACTURE OF UNSP PART OF NECK OF UNSP FEMUR, INIT Qualifiers: Encounter type: subsequent encounter
[2017-04-21] MEDS ORDERED: LEVOFLOXACIN 500 MG IVPB 500 MG/100 ML BAG IVPB ONE (13:49)
[2017-04-21] MEDS ORDERED: FUROSEMIDE 40 MG/4 ML INJECTABLE VIAL IVPUSH ONE (13:50)
--- NOTE | 2017-04-21 14:35 | CON.ID ---
Consult Consult Specialty:: infectious diseases Reason for Consultation:: pna,gallbladder sludge - History of Present Illness History of Present Illness: s a 82 y/o male resident of [facility] with h/o dementia, CAD, HTN, Hyperlipdemia, cardiomyopathy presented s/p fall out of wheelchair. Patient has Dementia, unable to provide HPI. Patient reports mild diffuse left hip discomfort increased on movement, found to have Acute Left Femoral Intertrochanteric Fracture, planned for left IM gamma nail. the above was the hisotry on admission patient was seen by ortho and underwent surgery post op patient was doing well and was off of abx patients wbc and lft and bili started rising, patient was worked up and found to ahve pleural effusion/pna and also the gall bladder showed sludge currently patient denies any complaints his associate is in the room looks like patient is mostly bedridden - History Source History Provided By: Medical Record Limitations to Obtaining History: Clinical Condition - Past Medical History [employer] IN: Yes: Dementia Cardio/Vascular: Yes: CAD, HTN, Hyperlipdemia, Other (Cardiomyopathy) Pulmonary: No: Asthma, Bronchitis, Cancer, COPD, O2 Dependent, Pneumonia, Previously Intubated, Pulmonary Embolus, Pulmonary Fibrosis, Sleep Apnea, Other Gastrointestinal: No: Ascites, Cancer, Constipation, Crohn's Disease, Diverticulitis, Diverticulosis, Esophageal Varices, Gastritis, GERD, GI Bleed, Hemorrhoids, Hiatal Hernia, Inflamatory Bowel Disease, Irritable Bowel Disease, Pancreatitis, Peptic Ulcer Disease, Ulcerative Colitis, Other Hepatobiliary: No: Cirrhosis, Cholelithiasis, Cholecystitis, Choledocholithiasis , Hepatitis A, Hepatitis B, Hepatitis C, Other Renal/: No: Renal Failure, Renal Inusuff, BPH, Cancer, Hematuria, Hemodialysis , Neurogenic Bladder, Renal Calculi, UTI, Other Infectious Disease: No: AIDS, C-Diff, Herpes Zoster, HIV, MRSA, STD's, Tuberculosis, VREF, Other Psych: Yes: Depression Musculoskeletal: Yes: Other Rheumatology: No: Fibromyalgia, Gout, Lupus, Rheumatoid Arthritis, Sarcoidosis, Vasculitis, Other ENT: No: Allergic Rhinitis, Sinusitis, Other Endocrine: Yes: Diabetes Mellitus Dermatology: No: Basal Cell, Cellulitis, Eczema, Melanoma, Psoriasis, Squamous Cell, Other - Past Surgical History Past Surgical History: Yes: Joint Replacement (Right Hip Pinning) - Alcohol/Substance Use Hx Alcohol Use: No History of Substance Use: reports: None - Smoking History Smoking history: Never smoked Have you smoked in the past 12 months: No - Social History ADL: Support Services 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: No Home Medications - Allergies Allergies/Adverse Reactions: Allergies Allergy/AdvReac Type Severity Reaction Status Date / Time No Known Allergies Allergy Verified 04/15/17 00:35 - Home Medications Home Medications: Ambulatory Orders Ascorbic Acid [Vitamin C] 500 mg PO DAILY 04/15/17 Aspirin 81 mg PO DAILY 04/15/17 Bupropion HCl [Bupropion HCl Sr] 150 mg PO DAILY 04/15/17 Cyanocobalamin [Vitamin B12 -] 1 tab PO DAILY 04/15/17 Duloxetine HCl 20 mg PO HS 04/15/17 Furosemide [Lasix -] 40 mg PO DAILY 04/15/17 Metoprolol Succinate 50 mg PO DAILY 04/15/17 Sennosides [Senna] 2 tab PO HS 04/15/17 Zinc Sulfate 220 mg PO DAILY 04/15/17 Review of Systems Unable to obtain ROS, reason: unable to obtain Physical Exam Vital Signs: Vital Signs Temperature 98.0 F 04/21/17 08:29 Pulse Rate 108 H 04/21/17 08:29 Respiratory Rate 20 04/21/17 08:29 Blood Pressure 100/63 04/21/17 08:29 O2 Sat by Pulse Oximetry (%) 97 04/21/17 08:46 Constitutional: Yes: Calm, Thin, Other Eyes: Yes: Conjunctiva Clear Neck: Yes: Supple Cardiovascular: Yes: Regular Rate and Rhythm Respiratory: Yes: Regular, CTA Bilaterally Gastrointestinal: Yes: Normal Bowel Sounds, Soft Musculoskeletal: Yes: WNL Extremities: Yes: Other Neurological: Yes: Alert, Other Psychiatric: Yes: Other Labs: CBC, BMP 04/21/17 07:45 04/21/17 07:45 Imaging - Results Cat Scan: Report Reviewed, Image Reviewed Ultrasound: Report Reviewed, Image Reviewed Assessment/Plan after looking at the patient i think there are two process going on Problem List - Problems (1) Anemia Code(s): D64.9 - ANEMIA, UNSPECIFIED Qualifiers: Anemia type: unspecified type Qualified Code(s): D64.9 - Anemia, unspecified (2) CAD (coronary artery disease) Code(s): I25.10 - ATHSCL HEART DISEASE OF [place] CORONARY ARTERY W/O ANG PCTRS Qualifiers: Coronary Disease-Associated Artery/Lesion type: [place] artery [place] vs. transplanted heart: [place] heart Associated angina: without angina Qualified Code(s): I25.10 - Atherosclerotic heart disease of [place] coronary artery without angina pectoris (3) Dementia Code(s): F03.90 - UNSPECIFIED DEMENTIA WITHOUT BEHAVIORAL DISTURBANCE Qualifiers: Dementia type: unspecified type Dementia behavioral disturbance: without behavioral disturbance Qualified Code(s): F03.90 - Unspecified dementia without behavioral disturbance (4) Diabetes mellitus Code(s): E11.9 - TYPE 2 DIABETES MELLITUS WITHOUT COMPLICATIONS Qualifiers: Diabetes mellitus type: type 2 (5) Hip fracture Code(s): S72.009A - FRACTURE OF UNSP PART OF NECK OF UNSP FEMUR, INIT Qualifiers: Encounter type: subsequent encounter pneumonia gall bladder sludge onchomycosis plan will start patient on zosyn monitor wbc incentive nelson will also give nystatin cream for the toes
[2017-04-21] MEDS: PIPERACILLIN/TAZOB 2.25 GM 2.25 GM/50 ML BAG IVPB SCH ×2 (15:47→21:45)
[2017-04-21] MEDS: NYSTATIN 100,000 UNIT/GM TOPICAL CREAM 15 GM TUBE TP SCH (22:18)
[2017-04-21] MEDS: SENNOSIDES 8.6MG TABLET (FP) PO SCH (22:18)
[2017-04-21] MEDS: DULoxetine HCL 20 MG CAPSULE.DR (FP) PO SCH (22:18)
[2017-04-22] MEDS: PIPERACILLIN/TAZOB 2.25 GM 2.25 GM/50 ML BAG IVPB SCH ×4 (02:40→21:49)
[2017-04-22] MEDS: METOPROLOL TARTRATE 25 MG TABLET (FP) PO SCH ×3 (06:24→21:49)
[2017-04-22 08:21] LABS: BASO % 0.4 % (0-2.0); EOS % 0.3 % (0-4.5); HEMATOCRIT 32.2 % (35.4-49); HEMOGLOBIN 10.1 GM/dL (11.7-16.9); MCH 29.3 pg (25.7-33.7); MCHC 31.3 g/dl (32.0-35.9); MEAN CELL VOLUME 93.7 fl (80-96); MEAN PLT VOLUME 9.2 fl (7.5-11.1); MONO % 2.6 % (3.8-10.2); NEUT % 79.7 % (42.8-82.8); PLATELET COUNT 256 K/MM3 (134-434); RBC 3.43 M/mm3 (4.00-5.60); RDW 16.9 % (11.9-15.9); WHITE BLOOD COUNT 16.6 K/mm3 (4.0-10.0)
[2017-04-22] MEDS: FERROUS SO4 325 MG TABLET (FP) PO SCH ×2 (08:34→18:19)
[2017-04-22 09:07] LABS: ANION GAP 13 (8-16); BLOOD UREA NITROGEN 51 mg/dL (7-18); CALCIUM 8.5 mg/dL (8.5-10.1); CHLORIDE 120 mmol/L (98-107); CO2 17 mmol/L (21-32); CREATININE 1.7 mg/dL (0.7-1.3); GLUCOSE,RANDOM 85 mg/dL (74-106); SODIUM 150 mmol/L (136-145)
--- NOTE | 2017-04-22 09:26 | CON.GI ---
Consult Consult Specialty:: Gastroenterology Referred by:: Dr ana Layne Reason for Consultation:: worsening liver enzymes - History of Present Illness History of Present Illness: 82 y/o male with multiple medical problems including Sepsis from aspiration pneumonia, CHF, renal failure and dehydration. At present he is receiving IV fluids and IV antibiotics. - Past Medical History [employer]: Yes: Dementia Cardio/Vascular: Yes: CAD, HTN, Hyperlipdemia, Other (Cardiomyopathy) Pulmonary: No: Asthma, Bronchitis, Cancer, COPD, O2 Dependent, Pneumonia, Previously Intubated, Pulmonary Embolus, Pulmonary Fibrosis, Sleep Apnea, Other Gastrointestinal: No: Ascites, Cancer, Constipation, Crohn's Disease, Diverticulitis, Diverticulosis, Esophageal Varices, Gastritis, GERD, GI Bleed, Hemorrhoids, Hiatal Hernia, Inflamatory Bowel Disease, Irritable Bowel Disease, Pancreatitis, Peptic Ulcer Disease, Ulcerative Colitis, Other Hepatobiliary: No: Cirrhosis, Cholelithiasis, Cholecystitis, Choledocholithiasis , Hepatitis A, Hepatitis B, Hepatitis C, Other Renal/: No: Renal Failure, Renal Inusuff, BPH, Cancer, Hematuria, Hemodialysis , Neurogenic Bladder, Renal Calculi, UTI, Other Infectious Disease: No: AIDS, C-Diff, Herpes Zoster, HIV, MRSA, STD's, Tuberculosis, VREF, Other Psych: Yes: Depression Musculoskeletal: Yes: Other Rheumatology: No: Fibromyalgia, Gout, Lupus, Rheumatoid Arthritis, Sarcoidosis, Vasculitis, Other ENT: No: Allergic Rhinitis, Sinusitis, Other Endocrine: Yes: Diabetes Mellitus Dermatology: No: Basal Cell, Cellulitis, Eczema, Melanoma, Psoriasis, Squamous Cell, Other - Past Surgical History Past Surgical History: Yes: Joint Replacement (Right Hip Pinning) - Alcohol/Substance Use Hx Alcohol Use: No History of Substance Use: reports: None - Smoking History Smoking history: Never smoked Have you smoked in the past 12 months: No - Social History ADL: Support Services 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: No Home Medications - Allergies Allergies/Adverse Reactions: Allergies Allergy/AdvReac Type Severity Reaction Status Date / Time No Known Allergies Allergy Verified 04/15/17 00:35 - Home Medications Home Medications: Ambulatory Orders Ascorbic Acid [Vitamin C] 500 mg PO DAILY 04/15/17 Aspirin 81 mg PO DAILY 04/15/17 Bupropion HCl [Bupropion HCl Sr] 150 mg PO DAILY 04/15/17 Cyanocobalamin [Vitamin B12 -] 1 tab PO DAILY 04/15/17 Duloxetine HCl 20 mg PO HS 04/15/17 Furosemide [Lasix -] 40 mg PO DAILY 04/15/17 Metoprolol Succinate 50 mg PO DAILY 04/15/17 Sennosides [Senna] 2 tab PO HS 04/15/17 Zinc Sulfate 220 mg PO DAILY 04/15/17 Physical Exam-GI Vital Signs: Vital Signs Temperature 98.1 F 04/22/17 06:00 Pulse Rate 97 H 04/22/17 06:26 Respiratory Rate 20 04/22/17 06:00 Blood Pressure 97/45 04/22/17 06:26 O2 Sat by Pulse Oximetry (%) 97 04/21/17 21:00 Constitutional: Yes: Other (cachectic with bitemporal wasting, poor oral hygeine ) Eyes: Yes: Conjunctiva Clear HENT: Yes: Atraumatic Neck: Yes: Supple Cardiovascular: Yes: Regular Rate and Rhythm Respiratory: Yes: CTA Bilaterally ...Palpate: Yes: Soft. No: Firm/Rigid, Guarding, Hepatomegaly, Mass, Pulsatile Mass, Splenomegaly Labs: CBC, BMP 04/22/17 06:00 04/22/17 06:00 INR, PTT INR 1.19 (0.82-1.09) H 04/15/17 01:09 Problem List - Problems (1) Abnormal LFTs Assessment/Plan: most likely secondary to ischemia could not r/o the presence of biliary sludge and sepsis R> 1)I discussed the case with Dr Patel last Sunday. This morning I spoke with Mr Cardoza and I explained to him our concerns that the patient will not do well without inserting an NGT to provide nutrition and hydration because of the underlying low ejection fraction of the heart. His living will states that he would not like any artificial feeding and NGT to be inserted. Mr Cardoza would like to continue palliative care only 2) Actigall 300mg bid Code(s): R79.89 - OTHER SPECIFIED ABNORMAL FINDINGS OF BLOOD CHEMISTRY (2) Dysphagia Code(s): R13.10 - DYSPHAGIA, UNSPECIFIED
[2017-04-22] MEDS ORDERED: LEVOFLOXACIN 250 MG IVPB 250 MG/50 ML MG IVPB SCH (10:00)
--- NOTE | 2017-04-22 10:05 | PN ---
Progress Note (short form) - Note Progress Note: Chief Complaint: Events noted, notes reviewed, POD# 6, awake and alert in no distress, evaluation of LFT abnormality is in progress History of Present Illness: Seen and examined. Events noted, notes reviewed, POD# 6, awake and alert in no distress, evaluation of LFT abnormality is in progress As outlined in yesterdays note LFT abnormality indicate acute hepatic insult, question transient hypotension vs. side effect of medical therapy Echocardiography revealed wall motion abnormality with mild to moderate reduction in LV-EF, RV mild hypokinesia, MAC, severe MR, mild to moderate AI, moderate to severe TR with RVSP between 40-50 mmHg EKG question atrial tachycardia with block vs. sinus tachycardia - Current Medication List Current Medications Aspirin (Asa -) 81 mg PO DAILY [facility] Last Admin: 04/21/17 10:10 Dose: 81 mg Bupropion HCl (Wellbutrin Xl -) 150 mg PO DAILY [facility] Last Admin: 04/21/17 10:10 Dose: 150 mg Calcium Carbonate/Cholecalciferol (Os-Tab 500+D -) 1 tab PO BID [facility] Last Admin: 04/21/17 22:18 Dose: 1 tab Cyanocobalamin (Vitamin B12 -) 1,000 mcg PO DAILY [facility] Last Admin: 04/21/17 10:10 Dose: 1,000 mcg Duloxetine HCl (Cymbalta -) 20 mg PO HS [facility] Last Admin: 04/21/17 22:18 Dose: 20 mg Enoxaparin Sodium (Lovenox -) 40 mg SQ DAILY [facility] Last Admin: 04/21/17 10:10 Dose: 40 mg Ferrous Sulfate (Feosol -) 325 mg PO BIDWM [facility] Last Admin: 04/22/17 08:34 Dose: 325 mg Piperacillin/Tazobactam/Dextrose (Zosyn 2.25gm Ivpb (Premix)) 2.25 gm in 50 mls @ 100 mls/hr IVPB Q6H-IV [facility] Last Admin: 04/22/17 08:34 Dose: 100 mls/hr Dextrose/Sodium Chloride (D5-Ns -) 1,000 mls @ 100 mls/hr IV ASDIR [facility] Stop: 04/24/17 19:44 Metoprolol Tartrate (Lopressor -) 25 mg PO TID [facility] Last Admin: 04/22/17 06:24 Dose: 25 mg Nystatin (Mycostatin Cream -) 1 applic TP BID [facility] Last Admin: 04/21/17 22:18 Dose: 1 applic Ondansetron HCl (Zofran Injection) 4 mg IVPUSH Q6H PRN PRN Reason: NAUSEA AND/OR VOMITING Senna (Senna -) 2 tab PO HS [facility] Last Admin: 04/21/17 22:18 Dose: 2 tab Ursodiol (Actigal -) 300 mg PO BID [facility] Zinc Sulfate (Orazinc -) 220 mg PO DAILY [facility] Last Admin: 04/21/17 10:10 Dose: 220 mg - Objective Vital Signs: Last Vital Signs Temp Pulse Resp BP Pulse Ox 98.1 F 97 H 20 97/45 97 04/22/17 06:00 04/22/17 06:26 04/22/17 06:00 04/22/17 06:26 04/21/17 21:00 Intake & Output 04/19/17 04/20/17 04/21/17 04/22/17 23:59 23:59 23:59 23:59 Intake Total 2350 2050 1100 1046 Balance 2350 2050 1100 1046 Constitutional: No Distress, Calm, Thin Neck: Supple Negative JVD No Bruit Respiratory: Diminished Breath Sounds at the Bases Bilaterally with Scattered Rhonchi Cardiovascular: S1 S2 Regular Rate and Rhythm Grade 2/6 SM Gastrointestinal: Soft Benign Normal Bowel Sounds Ext: No Edema Labs: CBC, BMP 04/22/17 06:00 04/22/17 06:00 Assessment/Plan ASSESSMENT: 1. POD#6 post left hip IM nail for management of a fracture 2. CAD with ischemic EKG changes resolved on medical therapy 3. 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 Transamenitis/LFT abnormality differential as outlined above 5. HTN 6. Persistent sinus tachycardia 7. Hypercholesterolemia 8. Organic brain syndrome/dementia 9. Anemia post transfusion 10. Acute renal insufficiency, pre-renal azotemia 11. Hypernatremia, persistent PLAN: 1. Monitor CBC and transfuse to maintain Hgb > 8.0 2. Continue ASA with caution 3. Continue Metoprolol 4. Recommend the addition of ACEI or ARBS pending renal function recovery and stabilization 5. Correction of Hypernatremia, continue fluid caution 6. Evaluation of transamenitis as planned by the primary team Daphney Alfred M.D.
[2017-04-22] MEDS: DEXTROSE 5%-NORMAL SALINE 1,000 ML IV SCH ×2 (10:08→22:00)
[2017-04-22] MEDS: ASPIRIN 81 MG CHEWABLE TABLETS PO SCH (10:09)
[2017-04-22] MEDS: CALCIUM 500MG/VIT-D 200 UNITS COMBO TABLET (FP) PO SCH ×2 (10:09→21:49)
[2017-04-22] MEDS: ZINC SULFATE 220 MG CAPSULE (FP) PO SCH (10:09)
[2017-04-22] MEDS: CYANOCOBALAMIN 1,000 MCG TABLET (FP) PO SCH (10:09)
[2017-04-22] MEDS: ENOXAPARIN NA (PORCINE) 40 MG/0.4 ML DISP.SYRIN SQ SCH (10:09)
[2017-04-22] MEDS: NYSTATIN 100,000 UNIT/GM TOPICAL CREAM 15 GM TUBE TP SCH ×2 (10:10→21:49)
--- NOTE | 2017-04-22 10:37 | PN ---
GI Progress Note Subjective: more alert today, oral hygeine much improved, on D5 NSS - Objective Vital Signs: Vital Signs Temperature 98.1 F 04/22/17 06:00 Pulse Rate 97 H 04/22/17 06:26 Respiratory Rate 20 04/22/17 06:00 Blood Pressure 97/45 04/22/17 06:26 O2 Sat by Pulse Oximetry (%) 97 04/21/17 21:00 Constitutional: Well Nourished Eyes: Yes: Conjunctiva Clear HENT: Yes: Atraumatic Neck: Yes: Trachea Midline Cardiovascular: Yes: Regular Rate and Rhythm Respiratory: Yes: CTA Bilaterally ...Palpate: Yes: Soft. No: Firm/Rigid, Guarding, Hepatomegaly, Mass, Pulsatile Mass, Splenomegaly, Tenderness Labs: CBC, BMP 04/22/17 06:00 04/22/17 06:00 INR, PTT INR 1.19 (0.82-1.09) H 04/15/17 01:09 Problem List - Problems (1) Abnormal LFTs Assessment/Plan: upward trend R> continue IV hydration serial LFTS Code(s): R79.89 - OTHER SPECIFIED ABNORMAL FINDINGS OF BLOOD CHEMISTRY (2) Dysphagia Code(s): R13.10 - DYSPHAGIA, UNSPECIFIED
--- NOTE | 2017-04-22 12:49 | PN ---
Progress Note, Physician Chief Complaint: abdominal pain History of Present Illness: 82 y/o male PMH dementia, CAD, HTN, Hyperlipdemia, cardiomyopathy presented s/p fall out of wheelchair. Sustained a left hip fracture that required an left IM gamma nail. in the post op period the patient was doing well and was off of antibiotics. Leukocytosis and Transaminitis withing the last 24hours, patient was worked up and found to have a pneumonia and pleural effusions and also the gallbladder showed sludge. - Current Medication List Current Medications: Active Medications Aspirin (Asa -) 81 mg PO DAILY [facility] Last Admin: 04/22/17 10:09 Dose: 81 mg Bupropion HCl (Wellbutrin Xl -) 150 mg PO DAILY [facility] Last Admin: 04/22/17 10:09 Dose: 150 mg Calcium Carbonate/Cholecalciferol (Os-Tab 500+D -) 1 tab PO BID [facility] Last Admin: 04/22/17 10:09 Dose: 1 tab Cyanocobalamin (Vitamin B12 -) 1,000 mcg PO DAILY [facility] Last Admin: 04/22/17 10:09 Dose: 1,000 mcg Duloxetine HCl (Cymbalta -) 20 mg PO HS [facility] Last Admin: 04/21/17 22:18 Dose: 20 mg Enoxaparin Sodium (Lovenox -) 40 mg SQ DAILY [facility] Last Admin: 04/22/17 10:09 Dose: 40 mg Ferrous Sulfate (Feosol -) 325 mg PO BIDWM [facility] Last Admin: 04/22/17 08:34 Dose: 325 mg Piperacillin/Tazobactam/Dextrose (Zosyn 2.25gm Ivpb (Premix)) 2.25 gm in 50 mls @ 100 mls/hr IVPB Q6H-IV [facility] Last Admin: 04/22/17 08:34 Dose: 100 mls/hr Dextrose/Sodium Chloride (D5-Ns -) 1,000 mls @ 100 mls/hr IV ASDIR [facility] Stop: 04/24/17 19:44 Last Admin: 04/22/17 10:08 Dose: 100 mls/hr Metoprolol Tartrate (Lopressor -) 25 mg PO TID [facility] Last Admin: 04/22/17 06:24 Dose: 25 mg Nystatin (Mycostatin Cream -) 1 applic TP BID [facility] Last Admin: 04/22/17 10:10 Dose: 1 applic Ondansetron HCl (Zofran Injection) 4 mg IVPUSH Q6H PRN PRN Reason: NAUSEA AND/OR VOMITING Senna (Senna -) 2 tab PO HS [facility] Last Admin: 04/21/17 22:18 Dose: 2 tab Ursodiol (Actigal -) 300 mg PO BID [facility] Zinc Sulfate (Orazinc -) 220 mg PO DAILY [facility] Last Admin: 04/22/17 10:09 Dose: 220 mg - Objective Vital Signs: Vital Signs Temperature 98.1 F 04/22/17 06:00 Pulse Rate 97 H 04/22/17 06:26 Respiratory Rate 20 04/22/17 06:00 Blood Pressure 97/45 04/22/17 06:26 O2 Sat by Pulse Oximetry (%) 97 04/21/17 21:00 Vital Signs Period Temp Pulse Resp BP Sys/[place] Pulse Ox Last 24 Hr 98.1 F-98.3 F 97-102 20-20 94-97/45-65 97 Intake & Output 04/21/17 04/22/17 04/22/17 23:59 07:59 15:59 Intake Total 1100 1046 Balance 1100 1046 Intake: IV 1000 996 D5-1/2Ns - 1,000 ml @ 83 500 996 mls/hr IV ASDIR [facility] Rx#: [id number] D5-Ns - 1,000 ml @ 100 500 mls/hr IV ASDIR [facility] Rx#: [id number] IVPB 100 50 Other: Voiding Method Incontinent # Unmeasured Voids Void 1 Bowel Movement Yes Constitutional: Yes: Cachectic, Mild Distress, Thin Eyes: Yes: Conjunctiva Clear, EOM Intact HENT: Yes: Atraumatic, Normocephalic Neck: Yes: Supple, Trachea Midline Cardiovascular: Yes: Regular Rate and Rhythm, S1, S2 Respiratory: Yes: Regular, CTA Bilaterally Gastrointestinal: Yes: Soft, Hypoactive Bowel Sounds. No: Tenderness, Tenderness, Epigastrium, Tenderness, Rebound ...Rectal Exam: Yes: Sphincter Tone Normal. No: Mass Genitourinary: No: CVA Tenderness - Left, CVA Tenderness - Right Extremities: No: Cool, Cyanosis Edema: No Peripheral Pulses WNL: Yes Peripheral Pulses: Left Doralis Pedis: 2+, Right Dorsalis Pedis: 2+, Left Femoral: 2+, Right Femoral: 2+ Neurological: Yes: Alert, Confusion Psychiatric: Yes: Alert Labs: CBC, BMP 04/22/17 06:00 04/22/17 06:00 INR, PTT INR 1.19 (0.82-1.09) H 04/15/17 01:09 CBC,CMP WBC 16.6 K/mm3 (4.0-10.0) H 04/22/17 06:00 RBC 3.43 M/mm3 (4.00-5.60) L 04/22/17 06:00 Hgb 10.1 GM/dL (11.7-16.9) L 04/22/17 06:00 Hct 32.2 % (35.4-49) L 04/22/17 06:00 MCV 93.7 fl (80-96) 04/22/17 06:00 MCH 29.3 pg (25.7-33.7) 04/22/17 06:00 MCHC 31.3 g/dl (32.0-35.9) L 04/22/17 06:00 RDW 16.9 % (11.9-15.9) H 04/22/17 06:00 Plt Count 256 K/MM3 (134-434) 04/22/17 06:00 MPV 9.2 fl (7.5-11.1) 04/22/17 06:00 Neutrophils % 79.7 % (42.8-82.8) 04/22/17 06:00 Lymphocytes % 17.0 % (8-40) 04/22/17 06:00 Monocytes % 2.6 % (3.8-10.2) L 04/22/17 06:00 Eosinophils % 0.3 % (0-4.5) D 04/22/17 06:00 Basophils % 0.4 % (0-2.0) 04/22/17 06:00 Sodium 150 mmol/L (136-145) H 04/22/17 06:00 Potassium 4.0 mmol/L (3.5-5.1) 04/22/17 06:00 Chloride 120 mmol/L (98-107) H 04/22/17 06:00 Carbon Dioxide 17 mmol/L (21-32) L 04/22/17 06:00 Anion Gap 13 (8-16) 04/22/17 06:00 BUN 51 mg/dL (7-18) H 04/22/17 06:00 Creatinine 1.7 mg/dL (0.7-1.3) H D 04/22/17 06:00 Creat Clearance w eGFR 48.52 (>60) 04/21/17 07:45 POC Glucometer 106 UNITS (80-120) 04/21/17 16:29 Random Glucose 85 mg/dL (74-106) 04/22/17 06:00 Calcium 8.5 mg/dL (8.5-10.1) 04/22/17 06:00 Phosphorus 4.1 mg/dL (2.5-4.9) 04/15/17 06:50 Magnesium 2.0 mg/dL (1.8-2.4) D 04/17/17 09:30 Iron 23 ug/dL (38-169) L 04/15/17 06:50 TIBC 161 ug/dL (250-450) L 04/15/17 06:50 Iron Saturation 14 % (15-55) L 04/15/17 06:50 Ferritin 355.955 ng/ml (16.4-293.9) H 04/15/17 06:50 Total Bilirubin 1.4 mg/dL (0.2-1.0) H D 04/21/17 07:45 Direct Bilirubin 0.6 mg/dL (0.0-0.2) H 04/21/17 07:45 AST 4070 U/L (15-37) H 04/21/17 07:45 ALT 1885 U/L (12-78) H D 04/21/17 07:45 Alkaline Phosphatase 128 U/L (45-117) H D 04/21/17 07:45 Total Protein 5.5 g/dl (6.4-8.2) L 04/21/17 07:45 Albumin 2.1 g/dl (3.4-5.0) L 04/21/17 07:45 TSH 3.20 uIU/ml (0.358-3.74) 04/21/17 07:45 Problem List - Problems (1) Abnormal LFTs Assessment/Plan: low grade fever, Tmax 99.8, Leukocytosis >18K and new onset transaminitis, pneumonia, shock liver versus hepatobilliary npo and ivf resuscitation Trend labs for AM, Correct electrolytes Na and Cl, give free water? CT scan Chest/Abdomen/Pelvis with IV and PO contrast - Evaluate for intrabdominal/ retroperitoneal process start broad spectrum iv antibiotics given new hardware GI evaluation will follow for serial exams Code(s): R79.89 - OTHER SPECIFIED ABNORMAL FINDINGS OF BLOOD CHEMISTRY (2) Hip fracture Code(s): S72.009A - FRACTURE OF UNSP PART OF NECK OF UNSP FEMUR, INIT Qualifiers: Encounter type: subsequent encounter (3) CAD (coronary artery disease) Code(s): I25.10 - ATHSCL HEART DISEASE OF [place] CORONARY ARTERY W/O ANG PCTRS Qualifiers: Coronary Disease-Associated Artery/Lesion type: [place] artery [place] vs. transplanted heart: [place] heart Associated angina: without angina Qualified Code(s): I25.10 - Atherosclerotic heart disease of [place] coronary artery without angina pectoris (4) Dementia Code(s): F03.90 - UNSPECIFIED DEMENTIA WITHOUT BEHAVIORAL DISTURBANCE Qualifiers: Dementia type: unspecified type Dementia behavioral disturbance: without behavioral disturbance Qualified Code(s): F03.90 - Unspecified dementia without behavioral disturbance (5) Diabetes mellitus Code(s): E11.9 - TYPE 2 DIABETES MELLITUS WITHOUT COMPLICATIONS Qualifiers: Diabetes mellitus type: type 2
--- NOTE | 2017-04-22 14:18 | PN ---
Progress Note (short form) - Note Progress Note: more awake but still weak/ lethargic all f/us / consults noted /appreciated answers simple questions Vital Signs Temp 98.1 F 04/22/17 06:00 Pulse 97 H 04/22/17 06:26 Resp 20 04/22/17 06:00 BP 97/45 04/22/17 06:26 Pulse Ox 97 04/21/17 21:00 Intake & Output 04/21/17 04/22/17 04/22/17 23:59 11:59 23:59 Intake Total 1100 1046 0 Balance 1100 1046 0 Intake: IV 1000 996 D5-1/2Ns - 1,000 ml @ 83 500 996 mls/hr IV [facility] Rx#: [id number] D5-Ns - 1,000 ml @ 100 500 mls/hr IV ASDIR [facility] Rx#: [id number] IVPB 100 50 Oral 0 Other: Voiding Method Incontinent Incontinent # Unmeasured Voids Void 1 1 Bowel Movement Yes Active Medications Aspirin (Asa -) 81 mg PO DAILY [facility] Last Admin: 04/22/17 10:09 Dose: 81 mg Bupropion HCl (Wellbutrin Xl -) 150 mg PO DAILY [facility] Last Admin: 04/22/17 10:09 Dose: 150 mg Calcium Carbonate/Cholecalciferol (Os-Tab 500+D -) 1 tab PO BID [facility] Last Admin: 04/22/17 10:09 Dose: 1 tab Cyanocobalamin (Vitamin B12 -) 1,000 mcg PO DAILY [facility] Last Admin: 04/22/17 10:09 Dose: 1,000 mcg Duloxetine HCl (Cymbalta -) 20 mg PO HS [facility] Last Admin: 04/21/17 22:18 Dose: 20 mg Enoxaparin Sodium (Lovenox -) 40 mg SQ DAILY [facility] Last Admin: 04/22/17 10:09 Dose: 40 mg Ferrous Sulfate (Feosol -) 325 mg PO BIDWM [facility] Last Admin: 04/22/17 08:34 Dose: 325 mg Piperacillin/Tazobactam/Dextrose (Zosyn 2.25gm Ivpb (Premix)) 2.25 gm in 50 mls @ 100 mls/hr IVPB Q6H-IV [facility] Last Admin: 04/22/17 08:34 Dose: 100 mls/hr Dextrose/Sodium Chloride (D5-Ns -) 1,000 mls @ 100 mls/hr IV ASDIR [facility] Stop: 04/24/17 19:44 Last Admin: 04/22/17 10:08 Dose: 100 mls/hr Metoprolol Tartrate (Lopressor -) 25 mg PO TID [facility] Last Admin: 04/22/17 06:24 Dose: 25 mg Nystatin (Mycostatin Cream -) 1 applic TP BID [facility] Last Admin: 04/22/17 10:10 Dose: 1 applic Ondansetron HCl (Zofran Injection) 4 mg IVPUSH Q6H PRN PRN Reason: NAUSEA AND/OR VOMITING Senna (Senna -) 2 tab PO HS [facility] Last Admin: 04/21/17 22:18 Dose: 2 tab Ursodiol (Actigal -) 300 mg PO BID [facility] Zinc Sulfate (Orazinc -) 220 mg PO DAILY [facility] Last Admin: 04/22/17 10:09 Dose: 220 mg CBC, BMP 04/22/17 06:00 04/22/17 06:00 lfts-- added to labs . Physical Exam Constitutional: Yes: better. mucosa dry Neck: Yes: Supple Cardiovascular: Yes: Regular Rate and Rhythm, Tachycardia Respiratory: Yes: CTA Bilaterally Gastrointestinal: Yes: Soft/ tenderness + ruq + Edema: No Wound/Incision: Yes: Dressing Dry and Intact Neurological: Yes: Other (awake but weak ) a/p s/p hips surgery elevated liver enzymes-- worsening gall bladder sludge pneumonia dehydration cad pleural effusion acute renal insufficiency . Abx overall condition gaurded/ poor surgery/ gi on case No feeding tube/ ngt per directions pt is dnr/ di serial lfts will follow. Problem List - Problems (1) Anemia Code(s): D64.9 - ANEMIA, UNSPECIFIED Qualifiers: Anemia type: unspecified type Qualified Code(s): D64.9 - Anemia, unspecified (2) CAD (coronary artery disease) Code(s): I25.10 - ATHSCL HEART DISEASE OF [place] CORONARY ARTERY W/O ANG PCTRS Qualifiers: Coronary Disease-Associated Artery/Lesion type: [place] artery [place] vs. transplanted heart: [place] heart Associated angina: without angina Qualified Code(s): I25.10 - Atherosclerotic heart disease of [place] coronary artery without angina pectoris (3) Dementia Code(s): F03.90 - UNSPECIFIED DEMENTIA WITHOUT BEHAVIORAL DISTURBANCE Qualifiers: Dementia type: unspecified type Dementia behavioral disturbance: without behavioral disturbance Qualified Code(s): F03.90 - Unspecified dementia without behavioral disturbance (4) Diabetes mellitus Code(s): E11.9 - TYPE 2 DIABETES MELLITUS WITHOUT COMPLICATIONS Qualifiers: Diabetes mellitus type: type 2 (5) Hip fracture Code(s): S72.009A - FRACTURE OF UNSP PART OF NECK OF UNSP FEMUR, INIT Qualifiers: Encounter type: subsequent encounter
--- NOTE | 2017-04-22 14:40 | PN ---
Progress Note, Physician History of Present Illness: stable no new issues wbc decreased - Current Medication List Current Medications: Active Medications Aspirin (Asa -) 81 mg PO DAILY [facility] Last Admin: 04/22/17 10:09 Dose: 81 mg Bupropion HCl (Wellbutrin Xl -) 150 mg PO DAILY [facility] Last Admin: 04/22/17 10:09 Dose: 150 mg Calcium Carbonate/Cholecalciferol (Os-Tab 500+D -) 1 tab PO BID [facility] Last Admin: 04/22/17 10:09 Dose: 1 tab Cyanocobalamin (Vitamin B12 -) 1,000 mcg PO DAILY [facility] Last Admin: 04/22/17 10:09 Dose: 1,000 mcg Duloxetine HCl (Cymbalta -) 20 mg PO HS [facility] Last Admin: 04/21/17 22:18 Dose: 20 mg Enoxaparin Sodium (Lovenox -) 40 mg SQ DAILY [facility] Last Admin: 04/22/17 10:09 Dose: 40 mg Ferrous Sulfate (Feosol -) 325 mg PO BIDWM [facility] Last Admin: 04/22/17 08:34 Dose: 325 mg Piperacillin/Tazobactam/Dextrose (Zosyn 2.25gm Ivpb (Premix)) 2.25 gm in 50 mls @ 100 mls/hr IVPB Q6H-IV [facility] Last Admin: 04/22/17 08:34 Dose: 100 mls/hr Dextrose/Sodium Chloride (D5-Ns -) 1,000 mls @ 100 mls/hr IV ASDIR [facility] Stop: 04/24/17 19:44 Last Admin: 04/22/17 10:08 Dose: 100 mls/hr Metoprolol Tartrate (Lopressor -) 25 mg PO TID [facility] Last Admin: 04/22/17 06:24 Dose: 25 mg Nystatin (Mycostatin Cream -) 1 applic TP BID [facility] Last Admin: 04/22/17 10:10 Dose: 1 applic Ondansetron HCl (Zofran Injection) 4 mg IVPUSH Q6H PRN PRN Reason: NAUSEA AND/OR VOMITING Senna (Senna -) 2 tab PO HS [facility] Last Admin: 04/21/17 22:18 Dose: 2 tab Ursodiol (Actigal -) 300 mg PO BID [facility] Zinc Sulfate (Orazinc -) 220 mg PO DAILY [facility] Last Admin: 04/22/17 10:09 Dose: 220 mg - Objective Vital Signs: Vital Signs Temperature 98.1 F 04/22/17 06:00 Pulse Rate 97 H 04/22/17 06:26 Respiratory Rate 20 04/22/17 06:00 Blood Pressure 97/45 04/22/17 06:26 O2 Sat by Pulse Oximetry (%) 97 04/21/17 21:00 Constitutional: Yes: No Distress, Calm Cardiovascular: Yes: Regular Rate and Rhythm Respiratory: Yes: On Nasal O2, Poor Air Entry (bases) Gastrointestinal: Yes: Normal Bowel Sounds, Soft Musculoskeletal: Yes: Other Extremities: Yes: Other Neurological: Yes: Alert Labs: CBC, BMP 04/22/17 06:00 04/22/17 06:00 INR, PTT INR 1.19 (0.82-1.09) H 04/15/17 01:09 Assessment/Plan after looking at the patient i think there are two process going on Problem List - Problems (1) Anemia Code(s): D64.9 - ANEMIA, UNSPECIFIED Qualifiers: Anemia type: unspecified type Qualified Code(s): D64.9 - Anemia, unspecified (2) CAD (coronary artery disease) Code(s): I25.10 - ATHSCL HEART DISEASE OF [place] CORONARY ARTERY W/O ANG PCTRS Qualifiers: Coronary Disease-Associated Artery/Lesion type: [place] artery [place] vs. transplanted heart: [place] heart Associated angina: without angina Qualified Code(s): I25.10 - Atherosclerotic heart disease of [place] coronary artery without angina pectoris (3) Dementia Code(s): F03.90 - UNSPECIFIED DEMENTIA WITHOUT BEHAVIORAL DISTURBANCE Qualifiers: Dementia type: unspecified type Dementia behavioral disturbance: without behavioral disturbance Qualified Code(s): F03.90 - Unspecified dementia without behavioral disturbance (4) Diabetes mellitus Code(s): E11.9 - TYPE 2 DIABETES MELLITUS WITHOUT COMPLICATIONS Qualifiers: Diabetes mellitus type: type 2 (5) Hip fracture Code(s): S72.009A - FRACTURE OF UNSP PART OF NECK OF UNSP FEMUR, INIT Qualifiers: Encounter type: subsequent encounter pneumonia gall bladder sludge onchomycosis plan continue abx wbc trending down continue supportive rest as per primary
[2017-04-22] MEDS: URSODIOL 300 MG CAPSULE PO SCH ×2 (15:13→21:49)
[2017-04-22 15:26] LABS: ALBUMIN 2.1 g/dl (3.4-5.0); ANION GAP 14 (8-16); BILIRUBIN,TOTAL 1.4 mg/dL (0.2-1.0); BLOOD UREA NITROGEN 53 mg/dL (7-18); CALCIUM 8.6 mg/dL (8.5-10.1); CHLORIDE 121 mmol/L (98-107); CO2 17 mmol/L (21-32); CREATININE 1.7 mg/dL (0.7-1.3); GLUCOSE,RANDOM 110 mg/dL (74-106); POTASSIUM 3.5 mmol/L (3.5-5.1); SODIUM 152 mmol/L (136-145); TOT PROT 5.3 g/dl (6.4-8.2)
[2017-04-22 15:32] LABS: ALK PHOS 127 U/L (45-117)
[2017-04-22 15:35] LABS: SGOT/AST 1931 U/L (15-37); SGPT/ALT 1573 U/L (12-78)
[2017-04-22] MEDS ORDERED: PT OWN MED DRAWER 7, Y5N ONE (21:34)
[2017-04-22] MEDS: DULoxetine HCL 20 MG CAPSULE.DR (FP) PO SCH (21:49)
[2017-04-22] MEDS: SENNOSIDES 8.6MG TABLET (FP) PO SCH (21:49)
[2017-04-23] MEDS: PIPERACILLIN/TAZOB 2.25 GM 2.25 GM/50 ML BAG IVPB SCH ×4 (02:55→21:34)
[2017-04-23] MEDS: METOPROLOL TARTRATE 25 MG TABLET (FP) PO SCH ×3 (06:11→21:33)
[2017-04-23] MEDS: ASPIRIN 81 MG CHEWABLE TABLETS PO SCH ×2 (06:14→09:12)
[2017-04-23] MEDS: DEXTROSE 5%-NORMAL SALINE 1,000 ML IV SCH (08:00)
[2017-04-23] MEDS: FERROUS SO4 325 MG TABLET (FP) PO SCH ×2 (08:52→16:59)
[2017-04-23 08:58] LABS: BASO % 0.2 % (0-2.0); EOS % 0.3 % (0-4.5); HEMATOCRIT 34.2 % (35.4-49); HEMOGLOBIN 10.6 GM/dL (11.7-16.9); LYMPH % 18.3 % (8-40); MCH 29.3 pg (25.7-33.7); MEAN CELL VOLUME 94.6 fl (80-96); MEAN PLT VOLUME 9.7 fl (7.5-11.1); MONO % 4.3 % (3.8-10.2); NEUT % 76.9 % (42.8-82.8); PLATELET COUNT 284 K/MM3 (134-434); RBC 3.61 M/mm3 (4.00-5.60); RDW 17.2 % (11.9-15.9); WHITE BLOOD COUNT 15.9 K/mm3 (4.0-10.0)
[2017-04-23] MEDS ORDERED: PT OWN MED DRAWER 7, Y5N ONE ×2 (09:11→21:33)
[2017-04-23] MEDS: URSODIOL 300 MG CAPSULE PO SCH ×2 (09:12→21:33)
[2017-04-23] MEDS: CYANOCOBALAMIN 1,000 MCG TABLET (FP) PO SCH (09:12)
[2017-04-23] MEDS: CALCIUM 500MG/VIT-D 200 UNITS COMBO TABLET (FP) PO SCH ×2 (09:12→21:33)
[2017-04-23] MEDS: ZINC SULFATE 220 MG CAPSULE (FP) PO SCH (09:13)
[2017-04-23] MEDS: ENOXAPARIN NA (PORCINE) 40 MG/0.4 ML DISP.SYRIN SQ SCH (09:13)
[2017-04-23] MEDS: NYSTATIN 100,000 UNIT/GM TOPICAL CREAM 15 GM TUBE TP SCH ×2 (09:15→21:43)
[2017-04-23 09:23] LABS: ANION GAP 12 (8-16); BLOOD UREA NITROGEN 52 mg/dL (7-18); CALCIUM 8.4 mg/dL (8.5-10.1); CHLORIDE 125 mmol/L (98-107); CO2 18 mmol/L (21-32); CREATININE 1.6 mg/dL (0.7-1.3); GLUCOSE,RANDOM 111 mg/dL (74-106); POTASSIUM 3.5 mmol/L (3.5-5.1); SODIUM 155 mmol/L (136-145)
--- NOTE | 2017-04-23 09:54 | PN ---
Progress Note, Physician Chief Complaint: abdominal pain History of Present Illness: 82 y/o male PMH dementia, CAD, HTN, Hyperlipdemia, cardiomyopathy presented s/p fall out of wheelchair. Sustained a left hip fracture that required an left IM gamma nail. in the post op period the patient was doing well and was off of antibiotics. Leukocytosis and Transaminitis withing the last 24hours, patient was worked up and found to have a pneumonia and pleural effusions and also the gallbladder showed sludge. - Current Medication List Current Medications: Active Medications Aspirin (Asa -) 81 mg PO DAILY [facility] Last Admin: 04/23/17 09:12 Dose: 81 mg Bupropion HCl (Wellbutrin Xl -) 150 mg PO DAILY [facility] Last Admin: 04/23/17 09:12 Dose: 150 mg Calcium Carbonate/Cholecalciferol (Os-Tab 500+D -) 1 tab PO BID [facility] Last Admin: 04/23/17 09:12 Dose: 1 tab Cyanocobalamin (Vitamin B12 -) 1,000 mcg PO DAILY [facility] Last Admin: 04/23/17 09:12 Dose: 1,000 mcg Duloxetine HCl (Cymbalta -) 20 mg PO HS [facility] Last Admin: 04/22/17 21:49 Dose: 20 mg Enoxaparin Sodium (Lovenox -) 40 mg SQ DAILY [facility] Last Admin: 04/23/17 09:13 Dose: 40 mg Ferrous Sulfate (Feosol -) 325 mg PO BIDWM [facility] Last Admin: 04/23/17 08:52 Dose: 325 mg Piperacillin/Tazobactam/Dextrose (Zosyn 2.25gm Ivpb (Premix)) 2.25 gm in 50 mls @ 100 mls/hr IVPB Q6H-IV [facility] Last Admin: 04/23/17 09:13 Dose: 100 mls/hr Dextrose/Sodium Chloride (D5-Ns -) 1,000 mls @ 100 mls/hr IV ASDIR [facility] Stop: 04/24/17 19:44 Last Admin: 04/23/17 08:00 Dose: 100 mls/hr Metoprolol Tartrate (Lopressor -) 25 mg PO TID [facility] Last Admin: 04/23/17 06:11 Dose: 25 mg Nystatin (Mycostatin Cream -) 1 applic TP BID [facility] Last Admin: 04/23/17 09:15 Dose: 1 applic Ondansetron HCl (Zofran Injection) 4 mg IVPUSH Q6H PRN PRN Reason: NAUSEA AND/OR VOMITING Senna (Senna -) 2 tab PO HS [facility] Last Admin: 04/22/17 21:49 Dose: 2 tab Ursodiol (Actigal -) 300 mg PO BID [facility] Last Admin: 04/23/17 09:12 Dose: 300 mg Zinc Sulfate (Orazinc -) 220 mg PO DAILY [facility] Last Admin: 04/23/17 09:13 Dose: 220 mg - Objective Vital Signs: Vital Signs Temperature 97.2 F L 04/23/17 08:00 Pulse Rate 86 04/23/17 08:00 Respiratory Rate 18 04/23/17 08:00 Blood Pressure 94/57 04/23/17 08:00 O2 Sat by Pulse Oximetry (%) 95 04/23/17 08:27 Constitutional: Yes: No Distress, Calm, Cachectic, Thin Eyes: Yes: Conjunctiva Clear, EOM Intact HENT: Yes: Atraumatic, Normocephalic Neck: Yes: Supple, Trachea Midline Cardiovascular: Yes: Regular Rate and Rhythm, S1, S2 Respiratory: Yes: Regular, CTA Bilaterally Gastrointestinal: Yes: Normal Bowel Sounds, Soft. No: Tenderness, Tenderness, Epigastrium Labs: CBC, BMP 04/23/17 07:28 INR, PTT INR 1.19 (0.82-1.09) H 04/15/17 01:09 Problem List - Problems (1) Abnormal LFTs Assessment/Plan: low grade fever, Tmax 99.8, Leukocytosis >18K and improving transaminitis, pneumonia likely shock liver npo and ivf resuscitation Trend labs for AM Consider if worsening CT scan Chest/Abdomen/Pelvis with IV and PO contrast start broad spectrum iv antibiotics given new hardware GI evaluation will follow for serial exams Code(s): R79.89 - OTHER SPECIFIED ABNORMAL FINDINGS OF BLOOD CHEMISTRY (2) Hip fracture Code(s): S72.009A - FRACTURE OF UNSP PART OF NECK OF UNSP FEMUR, INIT Qualifiers: Encounter type: subsequent encounter (3) CAD (coronary artery disease) Code(s): I25.10 - ATHSCL HEART DISEASE OF [place] CORONARY ARTERY W/O ANG PCTRS Qualifiers: Coronary Disease-Associated Artery/Lesion type: [place] artery [place] vs. transplanted heart: [place] heart Associated angina: without angina Qualified Code(s): I25.10 - Atherosclerotic heart disease of [place] coronary artery without angina pectoris (4) Dementia Code(s): F03.90 - UNSPECIFIED DEMENTIA WITHOUT BEHAVIORAL DISTURBANCE Qualifiers: Dementia type: unspecified type Dementia behavioral disturbance: without behavioral disturbance Qualified Code(s): F03.90 - Unspecified dementia without behavioral disturbance (5) Diabetes mellitus Code(s): E11.9 - TYPE 2 DIABETES MELLITUS WITHOUT COMPLICATIONS Qualifiers: Diabetes mellitus type: type 2
[2017-04-23 10:20] LABS: ALK PHOS 117 U/L (45-117); BILIRUBIN,TOTAL 1.5 mg/dL (0.2-1.0); TOT PROT 5.2 g/dl (6.4-8.2)
[2017-04-23 10:22] LABS: SGOT/AST 856 U/L (15-37)
[2017-04-23 10:25] LABS: SGPT/ALT 1094 U/L (12-78)
--- NOTE | 2017-04-23 12:19 | PN ---
Progress Note (short form) - Note Progress Note: Chief Complaint: Events noted, notes reviewed, POD# 7, awake and alert in no distress History of Present Illness: Seen and examined. Events noted, notes reviewed, POD# 7, awake and alert in no distress As outlined in prior notes LFT abnormality indicate acute hepatic insult, question transient hypotension vs. side effect of medical therapy Echocardiography revealed wall motion abnormality with mild to moderate reduction in LV-EF, RV mild hypokinesia, MAC, severe MR, mild to moderate AI, moderate to severe TR with RVSP between 40-50 mmHg - Current Medication List Current Medications Aspirin (Asa -) 81 mg PO DAILY [facility] Last Admin: 04/23/17 09:12 Dose: 81 mg Bupropion HCl (Wellbutrin Xl -) 150 mg PO DAILY [facility] Last Admin: 04/23/17 09:12 Dose: 150 mg Calcium Carbonate/Cholecalciferol (Os-Tab 500+D -) 1 tab PO BID [facility] Last Admin: 04/23/17 09:12 Dose: 1 tab Cyanocobalamin (Vitamin B12 -) 1,000 mcg PO DAILY [facility] Last Admin: 04/23/17 09:12 Dose: 1,000 mcg Duloxetine HCl (Cymbalta -) 20 mg PO [facility] Last Admin: 04/22/17 21:49 Dose: 20 mg Enoxaparin Sodium (Lovenox -) 40 mg SQ DAILY [facility] Last Admin: 04/23/17 09:13 Dose: 40 mg Ferrous Sulfate (Feosol -) 325 mg PO BIDWM [facility] Last Admin: 04/23/17 08:52 Dose: 325 mg Piperacillin/Tazobactam/Dextrose (Zosyn 2.25gm Ivpb (Premix)) 2.25 gm in 50 mls @ 100 mls/hr IVPB Q6H-IV [facility] Last Admin: 04/23/17 09:13 Dose: 100 mls/hr Metoprolol Tartrate (Lopressor -) 25 mg PO TID [facility] Last Admin: 04/23/17 06:11 Dose: 25 mg Nystatin (Mycostatin Cream -) 1 applic TP BID [facility] Last Admin: 04/23/17 09:15 Dose: 1 applic Ondansetron HCl (Zofran Injection) 4 mg IVPUSH Q6H PRN PRN Reason: NAUSEA AND/OR VOMITING Senna (Senna -) 2 tab PO HS [facility] Last Admin: 04/22/17 21:49 Dose: 2 tab Ursodiol (Actigal -) 300 mg PO BID [facility] Last Admin: 04/23/17 09:12 Dose: 300 mg Zinc Sulfate (Orazinc -) 220 mg PO DAILY [facility] Last Admin: 04/23/17 09:13 Dose: 220 mg - Objective Vital Signs: Last Vital Signs Temp Pulse Resp BP Pulse Ox 97.2 F L 86 18 94/57 95 04/23/17 08:00 04/23/17 08:00 04/23/17 08:00 04/23/17 08:00 04/23/17 08:27 Intake & Output 04/20/17 04/21/17 04/22/17 04/23/17 23:59 23:59 23:59 23:59 Intake Total 2049 1100 224 Balance 2049 1100 2245 Constitutional: No Distress, Calm, Thin Neck: Supple Negative JVD No Bruit Respiratory: Diminished Breath Sounds at the Bases Bilaterally with Scattered Rhonchi Cardiovascular: S1 S2 Regular Rate and Rhythm Grade 2/6 SM Gastrointestinal: Soft Benign Normal Bowel Sounds Ext: No Edema Labs: CBC, BMP 04/23/17 07:28 04/23/17 09:15 Hepatic Panel Total Bilirubin 1.5 mg/dL (0.2-1.0) H 04/23/17 07:28 Direct Bilirubin 0.6 mg/dL (0.0-0.2) H 04/21/17 07:45 AST 856 U/L (15-37) H D 04/23/17 07:28 ALT 1094 U/L (12-78) H D 04/23/17 07:28 Alkaline Phosphatase 117 U/L (45-117) 04/23/17 07:28 Albumin 2.0 g/dl (3.4-5.0) L 04/23/17 07:28 Assessment/Plan ASSESSMENT: 1. POD#7 post left hip IM nail for management of a fracture 2. CAD with ischemic EKG changes resolved on medical therapy 3. 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 Transamenitis/LFT abnormality differential as outlined above 5. HTN 6. Sinus tachycardia, resolved 7. Hypercholesterolemia 8. Organic brain syndrome/dementia 9. Anemia post transfusion 10. Acute renal insufficiency, pre-renal azotemia 11. Hypernatremia PLAN: 1. Monitor CBC and transfuse to maintain Hgb > 8.0 2. Continue ASA with caution 3. Continue Metoprolol 4. As outlined in yesterdays note recommend the addition of ACEI or ARBS pending renal function recovery and stabilization 5. Evaluation of transamenitis as planned by the primary team Daphney Alfred M.D.
[2017-04-23] MEDS: DEXTROSE 5%-0.45% SALINE 1,000 ML IV SCH (13:12)
--- NOTE | 2017-04-23 14:23 | PN ---
Progress Note (short form) - Note Progress Note: continue to improve slowly more awake. denies pain. afebrile Vital Signs Temp 97.2 F L 04/23/17 08:00 Pulse 86 04/23/17 08:00 Resp 18 04/23/17 08:00 BP 94/57 04/23/17 08:00 Pulse Ox 95 04/23/17 08:27 Intake & Output 04/22/17 04/23/17 04/23/17 23:59 11:59 23:59 Intake Total 1200 Balance 1200 Intake: IV 1100 D5-Ns - 1,000 ml @ 100 1100 mls/hr IV ASDIR [facility] Rx#: [id number] IVPB 100 Oral 0 Other: Voiding Method Incontinent Incontinent # Unmeasured Voids Void 1 3 Bowel Movement No Active Medications Aspirin (Asa -) 81 mg PO DAILY [facility] Last Admin: 04/23/17 09:12 Dose: 81 mg Bupropion HCl (Wellbutrin Xl -) 150 mg PO DAILY [facility] Last Admin: 04/23/17 09:12 Dose: 150 mg Calcium Carbonate/Cholecalciferol (Os-Tab 500+D -) 1 tab PO BID [facility] Last Admin: 04/23/17 09:12 Dose: 1 tab Cyanocobalamin (Vitamin B12 -) 1,000 mcg PO DAILY [facility] Last Admin: 04/23/17 09:12 Dose: 1,000 mcg Duloxetine HCl (Cymbalta -) 20 mg PO HS [facility] Last Admin: 04/22/17 21:49 Dose: 20 mg Enoxaparin Sodium (Lovenox -) 40 mg SQ DAILY [facility] Last Admin: 04/23/17 09:13 Dose: 40 mg Ferrous Sulfate (Feosol -) 325 mg PO BIDWM [facility] Last Admin: 04/23/17 08:52 Dose: 325 mg Piperacillin/Tazobactam/Dextrose (Zosyn 2.25gm Ivpb (Premix)) 2.25 gm in 50 mls @ 100 mls/hr IVPB Q6H-IV [facility] Last Admin: 04/23/17 14:06 Dose: 100 mls/hr Dextrose/Sodium Chloride (D5-1/2ns -) 1,000 mls @ 83 mls/hr IV ASDIR [facility] Last Admin: 04/23/17 13:12 Dose: 83 mls/hr Metoprolol Tartrate (Lopressor -) 25 mg PO TID [facility] Last Admin: 04/23/17 14:06 Dose: 25 mg Nystatin (Mycostatin Cream -) 1 applic TP BID [facility] Last Admin: 04/23/17 09:15 Dose: 1 applic Ondansetron HCl (Zofran Injection) 4 mg IVPUSH Q6H PRN PRN Reason: NAUSEA AND/OR VOMITING Senna (Senna -) 2 tab PO HS [facility] Last Admin: 04/22/17 21:49 Dose: 2 tab Ursodiol (Actigal -) 300 mg PO BID [facility] Last Admin: 04/23/17 09:12 Dose: 300 mg Zinc Sulfate (Orazinc -) 220 mg PO DAILY [facility] Last Admin: 04/23/17 09:13 Dose: 220 mg CBC, BMP 04/23/17 07:28 CMP Sodium 155 mmol/L (136-145) H 04/23/17 07:28 Potassium 3.5 mmol/L (3.5-5.1) 04/23/17 07:28 Chloride 125 mmol/L (98-107) H 04/23/17 07:28 Carbon Dioxide 18 mmol/L (21-32) L 04/23/17 07:28 Anion Gap 12 (8-16) 04/23/17 07:28 BUN 52 mg/dL (7-18) H 04/23/17 07:28 Creatinine 1.6 mg/dL (0.7-1.3) H 04/23/17 07:28 Creat Clearance w eGFR 0 (>60) 04/23/17 07:28 POC Glucometer 106 UNITS (80-120) 04/21/17 16:29 Random Glucose 111 mg/dL (74-106) H 04/23/17 07:28 Calcium 8.4 mg/dL (8.5-10.1) L 04/23/17 07:28 Phosphorus 4.1 mg/dL (2.5-4.9) 04/15/17 06:50 Magnesium 2.0 mg/dL (1.8-2.4) D 04/17/17 09:30 Iron 23 ug/dL (38-169) L 04/15/17 06:50 TIBC 161 ug/dL (250-450) L 04/15/17 06:50 Iron Saturation 14 % (15-55) L 04/15/17 06:50 Ferritin 355.955 ng/ml (16.4-293.9) H 04/15/17 06:50 Total Bilirubin 1.5 mg/dL (0.2-1.0) H 04/23/17 07:28 Direct Bilirubin 0.6 mg/dL (0.0-0.2) H 04/21/17 07:45 AST 856 U/L (15-37) H D 04/23/17 07:28 ALT 1094 U/L (12-78) H D 04/23/17 07:28 Alkaline Phosphatase 117 U/L (45-117) 04/23/17 07:28 Total Protein 5.2 g/dl (6.4-8.2) L 04/23/17 07:28 Albumin 2.0 g/dl (3.4-5.0) L 04/23/17 07:28 TSH 3.20 uIU/ml (0.358-3.74) 04/21/17 07:45 Physical Exam Constitutional: Yes: better. Neck: Yes: Supple Cardiovascular: Yes: Regular Rate and Rhythm, Tachycardia Respiratory: Yes: CTA Bilaterally Gastrointestinal: Yes: Soft/ tenderness + ruq + Edema: No Wound/Incision: Yes: Dressing Dry and Intact Neurological: Yes: Other (awake but weak ) a/p s/p hips surgery elevated liver enzymes-- worsening gall bladder sludge pneumonia dehydration cad pleural effusion acute renal insufficiency . Abx overall condition gaurded/ poor but improved surgery/ gi on case No feeding tube/ ngt per directions pt is dnr/ di serial lfts - trending down wbc trending down as well as cr monitor will follow. Problem List - Problems (1) Anemia Code(s): D64.9 - ANEMIA, UNSPECIFIED Qualifiers: Anemia type: unspecified type Qualified Code(s): D64.9 - Anemia, unspecified (2) CAD (coronary artery disease) Code(s): I25.10 - ATHSCL HEART DISEASE OF [place] CORONARY ARTERY W/O ANG PCTRS Qualifiers: Coronary Disease-Associated Artery/Lesion type: [place] artery [place] vs. transplanted heart: [place] heart Associated angina: without angina Qualified Code(s): I25.10 - Atherosclerotic heart disease of [place] coronary artery without angina pectoris (3) Dementia Code(s): F03.90 - UNSPECIFIED DEMENTIA WITHOUT BEHAVIORAL DISTURBANCE Qualifiers: Dementia type: unspecified type Dementia behavioral disturbance: without behavioral disturbance Qualified Code(s): F03.90 - Unspecified dementia without behavioral disturbance (4) Diabetes mellitus Code(s): E11.9 - TYPE 2 DIABETES MELLITUS WITHOUT COMPLICATIONS Qualifiers: Diabetes mellitus type: type 2 (5) Hip fracture Code(s): S72.009A - FRACTURE OF UNSP PART OF NECK OF UNSP FEMUR, INIT Qualifiers: Encounter type: subsequent encounter
--- NOTE | 2017-04-23 15:11 | PN ---
Progress Note, Physician History of Present Illness: stable no new issues wbc marginally better - Current Medication List Current Medications: Active Medications Aspirin (Asa -) 81 mg PO DAILY [facility] Last Admin: 04/23/17 09:12 Dose: 81 mg Bupropion HCl (Wellbutrin Xl -) 150 mg PO DAILY [facility] Last Admin: 04/23/17 09:12 Dose: 150 mg Calcium Carbonate/Cholecalciferol (Os-Tab 500+D -) 1 tab PO BID [facility] Last Admin: 04/23/17 09:12 Dose: 1 tab Cyanocobalamin (Vitamin B12 -) 1,000 mcg PO DAILY [facility] Last Admin: 04/23/17 09:12 Dose: 1,000 mcg Duloxetine HCl (Cymbalta -) 20 mg PO [facility] Last Admin: 04/22/17 21:49 Dose: 20 mg Enoxaparin Sodium (Lovenox -) 40 mg SQ DAILY [facility] Last Admin: 04/23/17 09:13 Dose: 40 mg Ferrous Sulfate (Feosol -) 325 mg PO BIDWM [facility] Last Admin: 04/23/17 08:52 Dose: 325 mg Piperacillin/Tazobactam/Dextrose (Zosyn 2.25gm Ivpb (Premix)) 2.25 gm in 50 mls @ 100 mls/hr IVPB Q6H-IV [facility] Last Admin: 04/23/17 14:06 Dose: 100 mls/hr Dextrose/Sodium Chloride (D5-1/2ns -) 1,000 mls @ 83 mls/hr IV ASDIR [facility] Last Admin: 04/23/17 13:12 Dose: 83 mls/hr Metoprolol Tartrate (Lopressor -) 25 mg PO TID [facility] Last Admin: 04/23/17 14:06 Dose: 25 mg Nystatin (Mycostatin Cream -) 1 applic TP BID [facility] Last Admin: 04/23/17 09:15 Dose: 1 applic Ondansetron HCl (Zofran Injection) 4 mg IVPUSH Q6H PRN PRN Reason: NAUSEA AND/OR VOMITING Senna (Senna -) 2 tab PO HS [facility] Last Admin: 04/22/17 21:49 Dose: 2 tab Ursodiol (Actigal -) 300 mg PO BID [facility] Last Admin: 04/23/17 09:12 Dose: 300 mg Zinc Sulfate (Orazinc -) 220 mg PO DAILY [facility] Last Admin: 04/23/17 09:13 Dose: 220 mg - Objective Vital Signs: Vital Signs Temperature 98.9 F 04/23/17 14:44 Pulse Rate 93 H 04/23/17 14:44 Respiratory Rate 18 04/23/17 08:00 Blood Pressure 101/55 04/23/17 14:44 O2 Sat by Pulse Oximetry (%) 95 04/23/17 08:27 Constitutional: Yes: No Distress, Calm Cardiovascular: Yes: Regular Rate and Rhythm Respiratory: Yes: Poor Air Entry, Other Gastrointestinal: Yes: Normal Bowel Sounds, Soft Musculoskeletal: Yes: WNL Extremities: Yes: WNL Neurological: Yes: Alert Psychiatric: Yes: Alert Labs: CBC, BMP 04/23/17 07:28 04/23/17 09:15 INR, PTT INR 1.19 (0.82-1.09) H 04/15/17 01:09 Assessment/Plan after looking at the patient i think there are two process going on Problem List - Problems (1) Anemia Code(s): D64.9 - ANEMIA, UNSPECIFIED Qualifiers: Anemia type: unspecified type Qualified Code(s): D64.9 - Anemia, unspecified (2) CAD (coronary artery disease) Code(s): I25.10 - ATHSCL HEART DISEASE OF [place] CORONARY ARTERY W/O ANG PCTRS Qualifiers: Coronary Disease-Associated Artery/Lesion type: [place] artery [place] vs. transplanted heart: [place] heart Associated angina: without angina Qualified Code(s): I25.10 - Atherosclerotic heart disease of [place] coronary artery without angina pectoris (3) Dementia Code(s): F03.90 - UNSPECIFIED DEMENTIA WITHOUT BEHAVIORAL DISTURBANCE Qualifiers: Dementia type: unspecified type Dementia behavioral disturbance: without behavioral disturbance Qualified Code(s): F03.90 - Unspecified dementia without behavioral disturbance (4) Diabetes mellitus Code(s): E11.9 - TYPE 2 DIABETES MELLITUS WITHOUT COMPLICATIONS Qualifiers: Diabetes mellitus type: type 2 (5) Hip fracture Code(s): S72.009A - FRACTURE OF UNSP PART OF NECK OF UNSP FEMUR, INIT Qualifiers: Encounter type: subsequent encounter pneumonia gall bladder sludge onchomycosis plan continue abx wbc trending down continue supportive rest as per primary
--- NOTE | 2017-04-23 19:14 | PN ---
GI Progress Note Subjective: lfts down mann trend - Objective Vital Signs: Vital Signs Temperature 98.9 F 04/23/17 14:44 Pulse Rate 93 H 04/23/17 14:44 Respiratory Rate 18 04/23/17 08:00 Blood Pressure 101/55 04/23/17 14:44 O2 Sat by Pulse Oximetry (%) 95 04/23/17 08:27 Labs: CBC, BMP 04/23/17 07:28 04/23/17 09:15 INR, PTT INR 1.19 (0.82-1.09) H 04/15/17 01:09 Hepatic Panel Total Bilirubin 1.5 mg/dL (0.2-1.0) H 04/23/17 07:28 Direct Bilirubin 0.6 mg/dL (0.0-0.2) H 04/21/17 07:45 AST 856 U/L (15-37) H D 04/23/17 07:28 ALT 1094 U/L (12-78) H D 04/23/17 07:28 Alkaline Phosphatase 117 U/L (45-117) 04/23/17 07:28 Albumin 2.0 g/dl (3.4-5.0) L 04/23/17 07:28 Problem List - Problems (1) Abnormal LFTs Code(s): R79.89 - OTHER SPECIFIED ABNORMAL FINDINGS OF BLOOD CHEMISTRY (2) Dysphagia Code(s): R13.10 - DYSPHAGIA, UNSPECIFIED
[2017-04-23] MEDS: SENNOSIDES 8.6MG TABLET (FP) PO SCH (21:33)
[2017-04-23] MEDS: DULoxetine HCL 20 MG CAPSULE.DR (FP) PO SCH (21:33)
[2017-04-24] MEDS: PIPERACILLIN/TAZOB 2.25 GM 2.25 GM/50 ML BAG IVPB SCH ×4 (02:33→21:54)
[2017-04-24] MEDS: METOPROLOL TARTRATE 25 MG TABLET (FP) PO SCH ×4 (06:04→22:05)
[2017-04-24] MEDS: FERROUS SO4 325 MG TABLET (FP) PO SCH ×2 (08:08→17:38)
--- NOTE | 2017-04-24 10:01 | PN ---
Progress Note (short form) - Note Progress Note: patient seen and examined. Overall condition same Weak and cachectic Vital Signs Temp 97.2 F L 04/24/17 08:00 Pulse 79 04/24/17 08:00 Resp 18 04/24/17 08:00 BP 95/58 04/24/17 08:00 Pulse Ox 95 04/23/17 21:00 Intake & Output 04/23/17 04/23/17 04/24/17 11:59 23:59 11:59 Intake Total 1198 1013 Balance 1198 1013 Intake: IV 998 913 D5-1/2Ns - 1,000 ml @ 83 498 913 mls/hr IV ASDIR [facility] Rx#: [id number] D5-Ns - 1,000 ml @ 100 500 mls/hr IV ASDIR [facility] Rx#: [id number] IVPB 200 100 Oral 0 0 Other: Voiding Method Incontinent Incontinent # Unmeasured Voids Void 3 2 2 Bowel Movement No No Active Medications Aspirin (Asa -) 81 mg PO DAILY [facility] Last Admin: 04/23/17 09:12 Dose: 81 mg Bupropion HCl (Wellbutrin Xl -) 150 mg PO DAILY [facility] Last Admin: 04/23/17 09:12 Dose: 150 mg Calcium Carbonate/Cholecalciferol (Os-Tab 500+D -) 1 tab PO BID [facility] Last Admin: 04/23/17 21:33 Dose: 1 tab Cyanocobalamin (Vitamin B12 -) 1,000 mcg PO DAILY [facility] Last Admin: 04/23/17 09:12 Dose: 1,000 mcg Duloxetine HCl (Cymbalta -) 20 mg PO HS [facility] Last Admin: 04/23/17 21:33 Dose: 20 mg Ferrous Sulfate (Feosol -) 325 mg PO BIDWM [facility] Last Admin: 04/24/17 08:08 Dose: 325 mg Piperacillin/Tazobactam/Dextrose (Zosyn 2.25gm Ivpb (Premix)) 2.25 gm in 50 mls @ 100 mls/hr IVPB Q6H-IV [facility] Last Admin: 04/24/17 08:53 Dose: 100 mls/hr Dextrose/Sodium Chloride (D5-1/2ns -) 1,000 mls @ 83 mls/hr IV ASDIR [facility] Last Admin: 04/23/17 13:12 Dose: 83 mls/hr Metoprolol Tartrate (Lopressor -) 25 mg PO TID [facility] Last Admin: 04/24/17 06:04 Dose: Not Given Nystatin (Mycostatin Cream -) 1 applic TP BID [facility] Last Admin: 04/23/17 21:43 Dose: 1 applic Ondansetron HCl (Zofran Injection) 4 mg IVPUSH Q6H PRN PRN Reason: NAUSEA AND/OR VOMITING Senna (Senna -) 2 tab PO HS [facility] Last Admin: 04/23/17 21:33 Dose: 2 tab Ursodiol (Actigal -) 300 mg PO BID [facility] Last Admin: 04/23/17 21:33 Dose: 300 mg Zinc Sulfate (Orazinc -) 220 mg PO DAILY [facility] Last Admin: 04/23/17 09:13 Dose: 220 mg CBC, BMP 04/23/17 07:28 04/23/17 09:15 todays labs -- ordered. Physical Exam Constitutional: Yes: weak and cachectic Mucosa--dry Neck: Yes: Supple/ no JVD Cardiovascular: Yes: Regular Rate and Rhythm, Tachycardia Respiratory: Yes: CTA Bilaterally Gastrointestinal: Yes: Soft/ tenderness + ruq + --mild Edema: No Wound/Incision: Yes: Dressing Dry and Intact Neurological: Yes: Other (awake but weak ) a/p s/p hips surgery elevated liver enzymes-- gall bladder sludge pneumonia dehydration cad pleural effusion acute renal insufficiency . Abx overall condition gaurded/ poor surgery/ gi on case No feeding tube/ ngt per directions pt is dnr/ di serial lfts - follow-up labs monitor continue fluids will follow. Problem List - Problems (1) Anemia Code(s): D64.9 - ANEMIA, UNSPECIFIED Qualifiers: Anemia type: unspecified type Qualified Code(s): D64.9 - Anemia, unspecified (2) CAD (coronary artery disease) Code(s): I25.10 - ATHSCL HEART DISEASE OF [place] CORONARY ARTERY W/O ANG PCTRS Qualifiers: Coronary Disease-Associated Artery/Lesion type: [place] artery [place] vs. transplanted heart: [place] heart Associated angina: without angina Qualified Code(s): I25.10 - Atherosclerotic heart disease of [place] coronary artery without angina pectoris (3) Dementia Code(s): F03.90 - UNSPECIFIED DEMENTIA WITHOUT BEHAVIORAL DISTURBANCE Qualifiers: Dementia type: unspecified type Dementia behavioral disturbance: without behavioral disturbance Qualified Code(s): F03.90 - Unspecified dementia without behavioral disturbance (4) Diabetes mellitus Code(s): E11.9 - TYPE 2 DIABETES MELLITUS WITHOUT COMPLICATIONS Qualifiers: Diabetes mellitus type: type 2 (5) Hip fracture Code(s): S72.009A - FRACTURE OF UNSP PART OF NECK OF UNSP FEMUR, INIT Qualifiers: Encounter type: subsequent encounter
--- NOTE | 2017-04-24 10:03 | PN ---
GI Progress Note Subjective: still with difficulty swallowing, difficult to provide oral care as patient would not open his mouth,LFTS downward trend - Objective Vital Signs: Vital Signs Temperature 97.2 F L 04/24/17 08:00 Pulse Rate 79 04/24/17 08:00 Respiratory Rate 18 04/24/17 08:00 Blood Pressure 95/58 04/24/17 08:00 O2 Sat by Pulse Oximetry (%) 95 04/23/17 21:00 Constitutional: Cachectic Eyes: Yes: Conjunctiva Clear HENT: Yes: Atraumatic, Other (poor oral hygeine) Neck: Yes: Supple Cardiovascular: Yes: Regular Rate and Rhythm Respiratory: Yes: CTA Bilaterally ...Palpate: Yes: Soft. No: Firm/Rigid, Guarding, Hepatomegaly, Mass, Pulsatile Mass, Splenomegaly, Tenderness Labs: CBC, BMP 04/23/17 07:28 04/23/17 09:15 INR, PTT INR 1.19 (0.82-1.09) H 04/15/17 01:09 Problem List - Problems (1) Abnormal LFTs Assessment/Plan: --resolving R. continue IV hydration d/c actigall Code(s): R79.89 - OTHER SPECIFIED ABNORMAL FINDINGS OF BLOOD CHEMISTRY (2) Dysphagia Code(s): R13.10 - DYSPHAGIA, UNSPECIFIED
[2017-04-24] MEDS ORDERED: PT OWN MED DRAWER 7, Y5N ONE (10:55)
[2017-04-24] MEDS: ASPIRIN 81 MG CHEWABLE TABLETS PO SCH (11:00)
[2017-04-24] MEDS: CYANOCOBALAMIN 1,000 MCG TABLET (FP) PO SCH (11:00)
[2017-04-24] MEDS: ZINC SULFATE 220 MG CAPSULE (FP) PO SCH (11:00)
[2017-04-24] MEDS: CALCIUM 500MG/VIT-D 200 UNITS COMBO TABLET (FP) PO SCH ×2 (11:00→21:55)
[2017-04-24] MEDS: NYSTATIN 100,000 UNIT/GM TOPICAL CREAM 15 GM TUBE TP SCH ×2 (11:01→21:56)
[2017-04-24] MEDS: URSODIOL 300 MG CAPSULE PO SCH (11:32)
[2017-04-24 11:37] LABS: BASO % 0.4 % (0-2.0); EOS % 0.7 % (0-4.5); HEMATOCRIT 32.5 % (35.4-49); LYMPH % 21.1 % (8-40); MCH 29.1 pg (25.7-33.7); MCHC 30.6 g/dl (32.0-35.9); MEAN CELL VOLUME 95.1 fl (80-96); MEAN PLT VOLUME 9.2 fl (7.5-11.1); NEUT % 72.8 % (42.8-82.8); PLATELET COUNT 279 K/MM3 (134-434); RBC 3.42 M/mm3 (4.00-5.60); RDW 17.3 % (11.9-15.9); WHITE BLOOD COUNT 15.4 K/mm3 (4.0-10.0)
[2017-04-24 12:17] LABS: ALBUMIN 1.9 g/dl (3.4-5.0); ALK PHOS 116 U/L (45-117); ANION GAP 12 (8-16); BILIRUBIN,TOTAL 1.9 mg/dL (0.2-1.0); BLOOD UREA NITROGEN 43 mg/dL (7-18); CALCIUM 7.9 mg/dL (8.5-10.1); CHLORIDE 130 mmol/L (98-107); CO2 18 mmol/L (21-32); CREATININE 1.4 mg/dL (0.7-1.3); GLUCOSE,RANDOM 108 mg/dL (74-106); SGOT/AST 388 U/L (15-37); SODIUM 160 mmol/L (136-145)
[2017-04-24 12:23] LABS: SGPT/ALT 714 U/L (12-78)
--- NOTE | 2017-04-24 12:43 | PN ---
Progress Note, Physician History of Present Illness: slightly more weak and lethargic answering - Current Medication List Current Medications: Active Medications Aspirin (Asa -) 81 mg PO DAILY [facility] Last Admin: 04/24/17 11:00 Dose: Not Given Bupropion HCl (Wellbutrin Xl -) 150 mg PO DAILY [facility] Last Admin: 04/24/17 11:00 Dose: Not Given Calcium Carbonate/Cholecalciferol (Os-Tab 500+D -) 1 tab PO BID [facility] Last Admin: 04/24/17 11:00 Dose: Not Given Cyanocobalamin (Vitamin B12 -) 1,000 mcg PO DAILY [facility] Last Admin: 04/24/17 11:00 Dose: Not Given Duloxetine HCl (Cymbalta -) 20 mg PO HS [facility] Last Admin: 04/23/17 21:33 Dose: 20 mg Ferrous Sulfate (Feosol -) 325 mg PO BIDWM [facility] Last Admin: 04/24/17 08:08 Dose: 325 mg Piperacillin/Tazobactam/Dextrose (Zosyn 2.25gm Ivpb (Premix)) 2.25 gm in 50 mls @ 100 mls/hr IVPB Q6H-IV [facility] Last Admin: 04/24/17 08:53 Dose: 100 mls/hr Dextrose/Sodium Chloride (D5-1/2ns -) 1,000 mls @ 83 mls/hr IV ASDIR [facility] Last Admin: 04/23/17 13:12 Dose: 83 mls/hr Metoprolol Tartrate (Lopressor -) 25 mg PO TID [facility] Last Admin: 04/24/17 06:04 Dose: Not Given Nystatin (Mycostatin Cream -) 1 applic TP BID [facility] Last Admin: 04/24/17 11:01 Dose: 1 applic Ondansetron HCl (Zofran Injection) 4 mg IVPUSH Q6H PRN PRN Reason: NAUSEA AND/OR VOMITING Senna (Senna -) 2 tab PO HS [facility] Last Admin: 04/23/17 21:33 Dose: 2 tab Zinc Sulfate (Orazinc -) 220 mg PO DAILY [facility] Last Admin: 04/24/17 11:00 Dose: Not Given - Objective Vital Signs: Vital Signs Temperature 97.2 F L 04/24/17 08:00 Pulse Rate 79 04/24/17 08:00 Respiratory Rate 18 04/24/17 08:00 Blood Pressure 95/58 04/24/17 08:00 O2 Sat by Pulse Oximetry (%) 95 04/23/17 21:00 Constitutional: Yes: No Distress, Calm, Thin (failure to thrive) Cardiovascular: Yes: Regular Rate and Rhythm Respiratory: Yes: Poor Air Entry Gastrointestinal: Yes: Normal Bowel Sounds, Soft Musculoskeletal: Yes: Other Extremities: Yes: Other Wound/Incision: Yes: Clean/Dry Neurological: Yes: Alert Psychiatric: Yes: Alert Labs: CBC, BMP 04/24/17 10:44 04/24/17 10:44 INR, PTT INR 1.19 (0.82-1.09) H 04/15/17 01:09 Assessment/Plan after looking at the patient i think there are two process going on Problem List - Problems (1) Anemia Code(s): D64.9 - ANEMIA, UNSPECIFIED Qualifiers: Anemia type: unspecified type Qualified Code(s): D64.9 - Anemia, unspecified (2) CAD (coronary artery disease) Code(s): I25.10 - ATHSCL HEART DISEASE OF [place] CORONARY ARTERY W/O ANG PCTRS Qualifiers: Coronary Disease-Associated Artery/Lesion type: [place] artery [place] vs. transplanted heart: [place] heart Associated angina: without angina Qualified Code(s): I25.10 - Atherosclerotic heart disease of [place] coronary artery without angina pectoris (3) Dementia Code(s): F03.90 - UNSPECIFIED DEMENTIA WITHOUT BEHAVIORAL DISTURBANCE Qualifiers: Dementia type: unspecified type Dementia behavioral disturbance: without behavioral disturbance Qualified Code(s): F03.90 - Unspecified dementia without behavioral disturbance (4) Diabetes mellitus Code(s): E11.9 - TYPE 2 DIABETES MELLITUS WITHOUT COMPLICATIONS Qualifiers: Diabetes mellitus type: type 2 (5) Hip fracture Code(s): S72.009A - FRACTURE OF UNSP PART OF NECK OF UNSP FEMUR, INIT Qualifiers: Encounter type: subsequent encounter pneumonia gall bladder sludge onchomycosis plan continue abx wbc trending down continue supportive rest as per primary prognosis guarded
--- NOTE | 2017-04-24 13:01 | PN ---
Progress Note, Physician Chief Complaint: Events noted Does not appear to be in distress History of Present Illness: Patient was seen and examined. Arousable. Chart was reviewed Denies chest pain or SOB - Current Medication List Current Medications: Active Medications Aspirin (Asa -) 81 mg PO DAILY [facility] Last Admin: 04/24/17 11:00 Dose: Not Given Bupropion HCl (Wellbutrin Xl -) 150 mg PO DAILY [facility] Last Admin: 04/24/17 11:00 Dose: Not Given Calcium Carbonate/Cholecalciferol (Os-Tab 500+D -) 1 tab PO BID [facility] Last Admin: 04/24/17 11:00 Dose: Not Given Cyanocobalamin (Vitamin B12 -) 1,000 mcg PO DAILY [facility] Last Admin: 04/24/17 11:00 Dose: Not Given Duloxetine HCl (Cymbalta -) 20 mg PO HS [facility] Last Admin: 04/23/17 21:33 Dose: 20 mg Ferrous Sulfate (Feosol -) 325 mg PO BIDWM [facility] Last Admin: 04/24/17 08:08 Dose: 325 mg Piperacillin/Tazobactam/Dextrose (Zosyn 2.25gm Ivpb (Premix)) 2.25 gm in 50 mls @ 100 mls/hr IVPB Q6H-IV [facility] Last Admin: 04/24/17 08:53 Dose: 100 mls/hr Dextrose/Sodium Chloride (D5-1/2ns -) 1,000 mls @ 83 mls/hr IV ASDIR [facility] Last Admin: 04/23/17 13:12 Dose: 83 mls/hr Metoprolol Tartrate (Lopressor -) 25 mg PO TID [facility] Last Admin: 04/24/17 06:04 Dose: Not Given Nystatin (Mycostatin Cream -) 1 applic TP BID [facility] Last Admin: 04/24/17 11:01 Dose: 1 applic Ondansetron HCl (Zofran Injection) 4 mg IVPUSH Q6H PRN PRN Reason: NAUSEA AND/OR VOMITING Senna (Senna -) 2 tab PO HS [facility] Last Admin: 04/23/17 21:33 Dose: 2 tab Zinc Sulfate (Orazinc -) 220 mg PO DAILY [facility] Last Admin: 04/24/17 11:00 Dose: Not Given - Objective Vital Signs: Vital Signs Temperature 97.2 F L 04/24/17 08:00 Pulse Rate 79 04/24/17 08:00 Respiratory Rate 18 04/24/17 08:00 Blood Pressure 95/58 04/24/17 08:00 O2 Sat by Pulse Oximetry (%) 95 04/23/17 21:00 Eyes: Yes: PERRL HENT: Yes: Atraumatic Neck: Yes: Supple Cardiovascular: Yes: Regular Rate and Rhythm, Murmur (SM), S1, S2 Respiratory: Yes: Diminished, Rhonchi Gastrointestinal: Yes: Normal Bowel Sounds, Soft. No: Tenderness Edema: No Labs: CBC, BMP 04/24/17 10:44 04/24/17 10:44 Problem List - Problems (1) Anemia Code(s): D64.9 - ANEMIA, UNSPECIFIED Qualifiers: Anemia type: unspecified type Qualified Code(s): D64.9 - Anemia, unspecified (2) CAD (coronary artery disease) Code(s): I25.10 - ATHSCL HEART DISEASE OF [place] CORONARY ARTERY W/O ANG PCTRS Qualifiers: Coronary Disease-Associated Artery/Lesion type: [place] artery [place] vs. transplanted heart: [place] heart Associated angina: without angina Qualified Code(s): I25.10 - Atherosclerotic heart disease of [place] coronary artery without angina pectoris (3) Dementia Code(s): F03.90 - UNSPECIFIED DEMENTIA WITHOUT BEHAVIORAL DISTURBANCE Qualifiers: Dementia type: unspecified type Dementia behavioral disturbance: without behavioral disturbance Qualified Code(s): F03.90 - Unspecified dementia without behavioral disturbance (4) Diabetes mellitus Code(s): E11.9 - TYPE 2 DIABETES MELLITUS WITHOUT COMPLICATIONS Qualifiers: Diabetes mellitus type: type 2 (5) HLD (hyperlipidemia) Code(s): E78.5 - HYPERLIPIDEMIA, UNSPECIFIED Qualifiers: Hyperlipidemia type: pure hypercholesterolemia Qualified Code(s): E78.00 - Pure hypercholesterolemia, unspecified; E78.0 - Pure hypercholesterolemia (6) Hip fracture Code(s): S72.009A - FRACTURE OF UNSP PART OF NECK OF UNSP FEMUR, INIT Qualifiers: Encounter type: subsequent encounter Assessment/Plan 1. Post left hip IM nail 2. Anemia 3. Hypokalemia 4. HTN 5. CAD, angina pectoris 6. Hyperlipidemia 7. Dementia 8. Anemia 9. Abnormal LFT PLAN: 1. Monitor CBC 2. Continue ASA 81 qd. Continue Toprol XL 50 qd, Altace 2.5 qd and Lasix held as hemodynamics tolerate 3. DVT prophylaxis 4. Further evaluation of abnormal LFT, etiology to be determined Further plans are to follow Alvin Alvarenga MD
[2017-04-24] MEDS ORDERED: KCL 10 MEQ IVPB 10 MEQ/100 ML INFUS.BAG IVPB SCH (14:00)
[2017-04-24] MEDS ORDERED: POTASSIUM CHLORIDE 30 MEQ in SODIUM CHLORIDE 300 ML IVPB ONE (14:30)
[2017-04-24] MEDS: D5-1/4NS+20 MEQ KCL - 20 MEQ/1,000 ML INFUS.BAG IV SCH (18:04)
[2017-04-24] MEDS: DEXTROSE 5%-0.45% SALINE 1,000 ML IV SCH (18:28)
[2017-04-24] MEDS: DULoxetine HCL 20 MG CAPSULE.DR (FP) PO SCH ×2 (21:55→22:04)
[2017-04-24] MEDS: SENNOSIDES 8.6MG TABLET (FP) PO SCH (21:55)
[2017-04-25] MEDS: PIPERACILLIN/TAZOB 2.25 GM 2.25 GM/50 ML BAG IVPB SCH ×4 (02:20→22:00)
[2017-04-25] MEDS: D5-1/4NS+20 MEQ KCL - 20 MEQ/1,000 ML INFUS.BAG IV SCH ×2 (04:09→14:50)
[2017-04-25] MEDS: METOPROLOL TARTRATE 25 MG TABLET (FP) PO SCH ×3 (05:59→21:47)
--- NOTE | 2017-04-25 09:00 | PN ---
Progress Note (short form) - Note Progress Note: pt seen/ examined more awake. overall looks weak but no distress. fluids were adjusted after yesterdays labs . Vital Signs Temp 97.6 F 04/25/17 08:00 Pulse 99 H 04/25/17 08:00 Resp 20 04/25/17 08:00 BP 108/66 04/25/17 08:00 Pulse Ox 94 L 04/24/17 21:00 Intake & Output 04/24/17 04/24/17 04/25/17 11:59 23:59 11:59 Intake Total 1063 50 1250 Balance 1063 50 1250 Intake: IV 913 1200 D5-1/2Ns - 1,000 ml @ 83 913 mls/hr IV ASDIR [facility] Rx#: [id number] D5-1/4NS+20 MEQ KCL - 20 1200 meq In 1,000 ml @ 100 mls /hr IV ASDIR [facility] Rx#: [id number] IVPB 150 50 50 Oral 0 0 0 Other: Voiding Method Incontinent Incontinent Incontinent # Unmeasured Voids Void 1 2 3 Bowel Movement No No Active Medications Aspirin (Asa -) 81 mg PO DAILY [facility] Last Admin: 04/24/17 11:00 Dose: Not Given Bupropion HCl (Wellbutrin Xl -) 150 mg PO DAILY [facility] Last Admin: 04/24/17 11:00 Dose: Not Given Calcium Carbonate/Cholecalciferol (Os-Tab 500+D -) 1 tab PO BID [facility] Last Admin: 04/24/17 21:55 Dose: 1 tab Cyanocobalamin (Vitamin B12 -) 1,000 mcg PO DAILY [facility] Last Admin: 04/24/17 11:00 Dose: Not Given Duloxetine HCl (Cymbalta -) 20 mg PO HS [facility] Last Admin: 04/24/17 22:04 Dose: Not Given Ferrous Sulfate (Feosol -) 325 mg PO BIDWM [facility] Last Admin: 04/24/17 17:38 Dose: Not Given Piperacillin/Tazobactam/Dextrose (Zosyn 2.25gm Ivpb (Premix)) 2.25 gm in 50 mls @ 100 mls/hr IVPB Q6H-IV [facility] Last Admin: 04/25/17 02:20 Dose: 100 mls/hr Dextrose/Sodium Chloride (D5-1/4ns+20 Meq Kcl -) 20 meq in 1,000 mls @ 100 mls/ hr IV ASDIR [facility] Last Admin: 04/25/17 04:09 Dose: 100 mls/hr Metoprolol Tartrate (Lopressor -) 25 mg PO TID [facility] Last Admin: 04/25/17 05:59 Dose: Not Given Nystatin (Mycostatin Cream -) 1 applic TP BID [facility] Last Admin: 04/24/17 21:56 Dose: 1 applic Ondansetron HCl (Zofran Injection) 4 mg IVPUSH Q6H PRN PRN Reason: NAUSEA AND/OR VOMITING Senna (Senna -) 2 tab PO HS [facility] Last Admin: 04/24/17 21:55 Dose: 2 tab Zinc Sulfate (Orazinc -) 220 mg PO DAILY [facility] Last Admin: 04/24/17 11:00 Dose: Not Given Labs - Pending Physical Exam Constitutional: Yes: awake/comfortable Neck: Yes: Supple/ no JVD Cardiovascular: Yes: Regular Rate and Rhythm, Tachycardia Respiratory: Yes: CTA Bilaterally Gastrointestinal: Yes: Soft/ non tender. bs + Edema: No Wound/Incision: Yes: Dressing Dry and Intact Neurological: Yes: Other (awake but weak ) a/p s/p hips surgery elevated liver enzymes-- gall bladder sludge pneumonia dehydration cad pleural effusion acute renal insufficiency . HYpernatremia Plan Abx fluids f/u labs overall condition guarded/ poor. surgery/ gi on case No feeding tube/ ngt per directions. pt is dnr/ di serial lfts - follow-up labs monitor will follow. discussed with nursing staff. Problem List - Problems (1) Anemia Code(s): D64.9 - ANEMIA, UNSPECIFIED Qualifiers: Anemia type: unspecified type Qualified Code(s): D64.9 - Anemia, unspecified (2) CAD (coronary artery disease) Code(s): I25.10 - ATHSCL HEART DISEASE OF [place] CORONARY ARTERY W/O ANG PCTRS Qualifiers: Coronary Disease-Associated Artery/Lesion type: [place] artery [place] vs. transplanted heart: [place] heart Associated angina: without angina Qualified Code(s): I25.10 - Atherosclerotic heart disease of [place] coronary artery without angina pectoris (3) Dementia Code(s): F03.90 - UNSPECIFIED DEMENTIA WITHOUT BEHAVIORAL DISTURBANCE Qualifiers: Dementia type: unspecified type Dementia behavioral disturbance: without behavioral disturbance Qualified Code(s): F03.90 - Unspecified dementia without behavioral disturbance (4) Diabetes mellitus Code(s): E11.9 - TYPE 2 DIABETES MELLITUS WITHOUT COMPLICATIONS Qualifiers: Diabetes mellitus type: type 2 (5) Hip fracture Code(s): S72.009A - FRACTURE OF UNSP PART OF NECK OF UNSP FEMUR, INIT Qualifiers: Encounter type: subsequent encounter
[2017-04-25 09:47] LABS: BASO % 0.2 % (0-2.0); EOS % 1.1 % (0-4.5); HEMATOCRIT 35.1 % (35.4-49); HEMOGLOBIN 10.8 GM/dL (11.7-16.9); LYMPH % 18.9 % (8-40); MCH 29.6 pg (25.7-33.7); MCHC 30.7 g/dl (32.0-35.9); MEAN CELL VOLUME 96.7 fl (80-96); MEAN PLT VOLUME 9.4 fl (7.5-11.1); MONO % 5.1 % (3.8-10.2); NEUT % 74.7 % (42.8-82.8); PLATELET COUNT 240 K/MM3 (134-434); RBC 3.64 M/mm3 (4.00-5.60); RDW 17.5 % (11.9-15.9); WHITE BLOOD COUNT 12.9 K/mm3 (4.0-10.0)
[2017-04-25] MEDS ORDERED: PT OWN MED DRAWER 7, Y5N ONE (09:52)
[2017-04-25] MEDS: CALCIUM 500MG/VIT-D 200 UNITS COMBO TABLET (FP) PO SCH ×2 (09:53→21:51)
[2017-04-25] MEDS: ASPIRIN 81 MG CHEWABLE TABLETS PO SCH (09:53)
[2017-04-25] MEDS: CYANOCOBALAMIN 1,000 MCG TABLET (FP) PO SCH (09:54)
[2017-04-25] MEDS: FERROUS SO4 325 MG TABLET (FP) PO SCH ×2 (09:54→17:28)
[2017-04-25] MEDS: ZINC SULFATE 220 MG CAPSULE (FP) PO SCH (09:54)
[2017-04-25] MEDS: NYSTATIN 100,000 UNIT/GM TOPICAL CREAM 15 GM TUBE TP SCH ×2 (09:55→22:03)
[2017-04-25 10:09] LABS: ALBUMIN 2.1 g/dl (3.4-5.0); ANION GAP 10 (8-16); BLOOD UREA NITROGEN 32 mg/dL (7-18); CALCIUM 8.4 mg/dL (8.5-10.1); CHLORIDE 130 mmol/L (98-107); CO2 20 mmol/L (21-32); GLUCOSE,RANDOM 104 mg/dL (74-106); SODIUM 160 mmol/L (136-145)
[2017-04-25 10:15] LABS: ALK PHOS 127 U/L (45-117); BILIRUBIN,TOTAL 2.4 mg/dL (0.2-1.0); CREATININE 1.2 mg/dL (0.7-1.3); SGOT/AST 240 U/L (15-37); TOT PROT 5.2 g/dl (6.4-8.2)
[2017-04-25 10:16] LABS: SGPT/ALT 560 U/L (12-78)
--- NOTE | 2017-04-25 16:19 | PN ---
Progress Note, Physician History of Present Illness: Decreased oral intake. - Current Medication List Current Medications: Active Medications Aspirin (Asa -) 81 mg PO DAILY [facility] Last Admin: 04/25/17 09:53 Dose: 81 mg Bupropion HCl (Wellbutrin Xl -) 150 mg PO DAILY [facility] Last Admin: 04/25/17 09:54 Dose: 150 mg Calcium Carbonate/Cholecalciferol (Os-Tab 500+D -) 1 tab PO BID [facility] Last Admin: 04/25/17 09:53 Dose: 1 tab Cyanocobalamin (Vitamin B12 -) 1,000 mcg PO DAILY [facility] Last Admin: 04/25/17 09:54 Dose: 1,000 mcg Duloxetine HCl (Cymbalta -) 20 mg PO HS [facility] Last Admin: 04/24/17 22:04 Dose: Not Given Ferrous Sulfate (Feosol -) 325 mg PO BIDWM [facility] Last Admin: 04/25/17 09:54 Dose: Not Given Piperacillin/Tazobactam/Dextrose (Zosyn 2.25gm Ivpb (Premix)) 2.25 gm in 50 mls @ 100 mls/hr IVPB Q6H-IV [facility] Last Admin: 04/25/17 14:51 Dose: 100 mls/hr Dextrose/Sodium Chloride (D5-1/4ns+20 Meq Kcl -) 20 meq in 1,000 mls @ 100 mls/ hr IV ASDIR [facility] Last Admin: 04/25/17 14:50 Dose: 100 mls/hr Metoprolol Tartrate (Lopressor -) 25 mg PO TID [facility] Last Admin: 04/25/17 16:10 Dose: Not Given Nystatin (Mycostatin Cream -) 1 applic TP BID [facility] Last Admin: 04/25/17 09:55 Dose: 1 applic Ondansetron HCl (Zofran Injection) 4 mg IVPUSH Q6H PRN PRN Reason: NAUSEA AND/OR VOMITING Senna (Senna -) 2 tab PO HS [facility] Last Admin: 04/24/17 21:55 Dose: 2 tab Zinc Sulfate (Orazinc -) 220 mg PO DAILY [facility] Last Admin: 04/25/17 09:54 Dose: 220 mg - Objective Vital Signs: Vital Signs Temperature 97.5 F L 04/25/17 15:16 Pulse Rate 103 H 04/25/17 15:16 Respiratory Rate 20 04/25/17 08:00 Blood Pressure 107/69 04/25/17 15:16 O2 Sat by Pulse Oximetry (%) 95 04/25/17 09:00 Constitutional: Yes: No Distress, Calm, Cachectic Neck: Yes: Supple Cardiovascular: Yes: Regular Rate and Rhythm Respiratory: Yes: Regular, Diminished Gastrointestinal: Yes: Soft, Hypoactive Bowel Sounds Edema: No Labs: CBC, BMP 04/25/17 08:40 04/25/17 08:40 INR, PTT INR 1.19 (0.82-1.09) H 04/15/17 01:09 Problem List - Problems (1) Hypertensive cardiomyopathy Code(s): I11.9 - HYPERTENSIVE HEART DISEASE WITHOUT HEART FAILURE; I43 - CARDIOMYOPATHY IN DISEASES CLASSIFIED ELSEWHERE Qualifiers: Heart failure presence: without heart failure Qualified Code(s): I11.9 - Hypertensive heart disease without heart failure; I43 - Cardiomyopathy in diseases classified elsewhere; I43 - Cardiomyopathy in diseases classified elsewhere; I43 - Cardiomyopathy in diseases classified elsewhere; I43 - Cardiomyopathy in diseases classified elsewhere (2) Anemia Code(s): D64.9 - ANEMIA, UNSPECIFIED Qualifiers: Anemia type: unspecified type Qualified Code(s): D64.9 - Anemia, unspecified (3) CAD (coronary artery disease) Code(s): I25.10 - ATHSCL HEART DISEASE OF [place] CORONARY ARTERY W/O ANG PCTRS Qualifiers: Coronary Disease-Associated Artery/Lesion type: [place] artery [place] vs. transplanted heart: [place] heart Associated angina: without angina Qualified Code(s): I25.10 - Atherosclerotic heart disease of [place] coronary artery without angina pectoris (4) Dementia Code(s): F03.90 - UNSPECIFIED DEMENTIA WITHOUT BEHAVIORAL DISTURBANCE Qualifiers: Dementia type: unspecified type Dementia behavioral disturbance: without behavioral disturbance Qualified Code(s): F03.90 - Unspecified dementia without behavioral disturbance (5) Diabetes mellitus Code(s): E11.9 - TYPE 2 DIABETES MELLITUS WITHOUT COMPLICATIONS Qualifiers: Diabetes mellitus type: type 2 (6) HLD (hyperlipidemia) Code(s): E78.5 - HYPERLIPIDEMIA, UNSPECIFIED Qualifiers: Hyperlipidemia type: pure hypercholesterolemia Qualified Code(s): E78.00 - Pure hypercholesterolemia, unspecified; E78.0 - Pure hypercholesterolemia (7) Hip fracture Code(s): S72.009A - FRACTURE OF UNSP PART OF NECK OF UNSP FEMUR, INIT Qualifiers: Encounter type: subsequent encounter (8) Ischemic heart disease due to coronary artery obstruction Code(s): I24.0 - ACUTE CORONARY THROMBOSIS NOT RESULTING IN MYOCARDIAL INFRC (9) Abnormal LFTs Code(s): R79.89 - OTHER SPECIFIED ABNORMAL FINDINGS OF BLOOD CHEMISTRY (10) DVT prophylaxis Code(s): HHB2171 - (11) Hypernatremia Code(s): E87.0 - HYPEROSMOLALITY AND HYPERNATREMIA (12) Dysphagia Code(s): R13.10 - DYSPHAGIA, UNSPECIFIED Qualifiers: Dysphagia type: unspecified Qualified Code(s): R13.10 - Dysphagia, unspecified (13) Hypokalemia Code(s): E87.6 - HYPOKALEMIA Assessment/Plan 1. Post left hip IM nail 2. Anemia 3. Hypokalemia 4. HTN 5. CAD, angina pectoris 6. Hyperlipidemia 7. Dementia 8. Anemia 9. Abnormal LFT with GB sludge 10. Hypernatremia PLAN: 1. Free water repletion with monitor Na 2. Continue ASA 81 qd. Continue Lopressor 25 tid. Altace 2.5 qd and Lasix held as hemodynamics tolerate 3. DVT prophylaxis, NGT or PEG declined by health care proxy 4. Complete abx course
--- NOTE | 2017-04-25 17:51 | PN ---
Progress Note, Physician History of Present Illness: stable no new events wbc trending down - Current Medication List Current Medications: Active Medications Aspirin (Asa -) 81 mg PO DAILY [facility] Last Admin: 04/25/17 09:53 Dose: 81 mg Bupropion HCl (Wellbutrin Xl -) 150 mg PO DAILY [facility] Last Admin: 04/25/17 09:54 Dose: 150 mg Calcium Carbonate/Cholecalciferol (Os-Tab 500+D -) 1 tab PO BID [facility] Last Admin: 04/25/17 09:53 Dose: 1 tab Cyanocobalamin (Vitamin B12 -) 1,000 mcg PO DAILY [facility] Last Admin: 04/25/17 09:54 Dose: 1,000 mcg Duloxetine HCl (Cymbalta -) 20 mg PO HS [facility] Last Admin: 04/24/17 22:04 Dose: Not Given Ferrous Sulfate (Feosol -) 325 mg PO BIDWM [facility] Last Admin: 04/25/17 17:28 Dose: Not Given Piperacillin/Tazobactam/Dextrose (Zosyn 2.25gm Ivpb (Premix)) 2.25 gm in 50 mls @ 100 mls/hr IVPB Q6H-IV [facility] Last Admin: 04/25/17 14:51 Dose: 100 mls/hr Dextrose/Sodium Chloride (D5-1/4ns+20 Meq Kcl -) 20 meq in 1,000 mls @ 100 mls/ hr IV ASDIR [facility] Last Admin: 04/25/17 14:50 Dose: 100 mls/hr Metoprolol Tartrate (Lopressor -) 25 mg PO TID [facility] Last Admin: 04/25/17 16:10 Dose: Not Given Nystatin (Mycostatin Cream -) 1 applic TP BID [facility] Last Admin: 04/25/17 09:55 Dose: 1 applic Ondansetron HCl (Zofran Injection) 4 mg IVPUSH Q6H PRN PRN Reason: NAUSEA AND/OR VOMITING Senna (Senna -) 2 tab PO HS [facility] Last Admin: 04/24/17 21:55 Dose: 2 tab Zinc Sulfate (Orazinc -) 220 mg PO DAILY [facility] Last Admin: 04/25/17 09:54 Dose: 220 mg - Objective Vital Signs: Vital Signs Temperature 97.5 F L 04/25/17 15:16 Pulse Rate 103 H 04/25/17 15:16 Respiratory Rate 20 04/25/17 08:00 Blood Pressure 107/69 04/25/17 15:16 O2 Sat by Pulse Oximetry (%) 95 04/25/17 09:00 Constitutional: Yes: No Distress, Calm Cardiovascular: Yes: Regular Rate and Rhythm Respiratory: Yes: Regular, CTA Bilaterally, On Nasal O2 Gastrointestinal: Yes: Normal Bowel Sounds, Soft Breast(s): Yes: Other Musculoskeletal: Yes: Other Wound/Incision: Yes: Clean/Dry Neurological: Yes: Alert, Other Labs: CBC, BMP 04/25/17 08:40 04/25/17 08:40 INR, PTT INR 1.19 (0.82-1.09) H 04/15/17 01:09 Assessment/Plan after looking at the patient i think there are two process going on Problem List - Problems (1) Anemia Code(s): D64.9 - ANEMIA, UNSPECIFIED Qualifiers: Anemia type: unspecified type Qualified Code(s): D64.9 - Anemia, unspecified (2) CAD (coronary artery disease) Code(s): I25.10 - ATHSCL HEART DISEASE OF [place] CORONARY ARTERY W/O ANG PCTRS Qualifiers: Coronary Disease-Associated Artery/Lesion type: [place] artery [place] vs. transplanted heart: [place] heart Associated angina: without angina Qualified Code(s): I25.10 - Atherosclerotic heart disease of [place] coronary artery without angina pectoris (3) Dementia Code(s): F03.90 - UNSPECIFIED DEMENTIA WITHOUT BEHAVIORAL DISTURBANCE Qualifiers: Dementia type: unspecified type Dementia behavioral disturbance: without behavioral disturbance Qualified Code(s): F03.90 - Unspecified dementia without behavioral disturbance (4) Diabetes mellitus Code(s): E11.9 - TYPE 2 DIABETES MELLITUS WITHOUT COMPLICATIONS Qualifiers: Diabetes mellitus type: type 2 (5) Hip fracture Code(s): S72.009A - FRACTURE OF UNSP PART OF NECK OF UNSP FEMUR, INIT Qualifiers: Encounter type: subsequent encounter pneumonia gall bladder sludge onchomycosis plan continue abx wbc trending down continue supportive rest as per primary prognosis guarded
[2017-04-25] MEDS: DULoxetine HCL 20 MG CAPSULE.DR (FP) PO SCH (21:46)
[2017-04-25] MEDS: SENNOSIDES 8.6MG TABLET (FP) PO SCH (21:52)
[2017-04-26] MEDS: PIPERACILLIN/TAZOB 2.25 GM 2.25 GM/50 ML BAG IVPB SCH ×4 (02:40→20:09)
[2017-04-26] MEDS: METOPROLOL TARTRATE 25 MG TABLET (FP) PO SCH ×3 (06:13→21:56)
[2017-04-26 08:49] LABS: BASO % 0.4 % (0-2.0); EOS % 2.5 % (0-4.5); HEMATOCRIT 37.1 % (35.4-49); HEMOGLOBIN 11.3 GM/dL (11.7-16.9); MCH 29.4 pg (25.7-33.7); MCHC 30.4 g/dl (32.0-35.9); MEAN CELL VOLUME 96.6 fl (80-96); MEAN PLT VOLUME 9.8 fl (7.5-11.1); MONO % 3.6 % (3.8-10.2); NEUT % 72.5 % (42.8-82.8); PLATELET COUNT 211 K/MM3 (134-434); RBC 3.84 M/mm3 (4.00-5.60); RDW 18.5 % (11.9-15.9); WHITE BLOOD COUNT 11.3 K/mm3 (4.0-10.0)
[2017-04-26 09:12] LABS: ALK PHOS 145 U/L (45-117); ANION GAP 10 (8-16); BILIRUBIN,TOTAL 2.3 mg/dL (0.2-1.0); BLOOD UREA NITROGEN 23 mg/dL (7-18); CALCIUM 8.2 mg/dL (8.5-10.1); CHLORIDE 131 mmol/L (98-107); CO2 19 mmol/L (21-32); CREATININE 1.1 mg/dL (0.7-1.3); GLUCOSE,RANDOM 95 mg/dL (74-106); POTASSIUM 3.6 mmol/L (3.5-5.1); SGOT/AST 130 U/L (15-37); SGPT/ALT 390 U/L (12-78); SODIUM 160 mmol/L (136-145); TOT PROT 5.3 g/dl (6.4-8.2)
[2017-04-26] MEDS: ZINC SULFATE 220 MG CAPSULE (FP) PO SCH (09:23)
[2017-04-26] MEDS: NYSTATIN 100,000 UNIT/GM TOPICAL CREAM 15 GM TUBE TP SCH ×2 (09:23→21:57)
[2017-04-26] MEDS: ASPIRIN 81 MG CHEWABLE TABLETS PO SCH (09:23)
[2017-04-26] MEDS: CALCIUM 500MG/VIT-D 200 UNITS COMBO TABLET (FP) PO SCH ×2 (09:23→21:56)
[2017-04-26] MEDS: FERROUS SO4 325 MG TABLET (FP) PO SCH ×2 (09:23→17:33)
[2017-04-26] MEDS: CYANOCOBALAMIN 1,000 MCG TABLET (FP) PO SCH (09:24)
[2017-04-26] MEDS: D5-1/4NS+20 MEQ KCL - 20 MEQ/1,000 ML INFUS.BAG IV SCH (11:19)
--- NOTE | 2017-04-26 11:48 | PN ---
Progress Note (short form) - Note Progress Note: pt seen/ examined awake. overall condition same Vital Signs Temp 97.9 F 04/26/17 08:38 Pulse 99 H 04/26/17 08:38 Resp 18 04/26/17 08:38 BP 108/62 04/26/17 08:38 Pulse Ox 95 04/26/17 08:51 Intake & Output 04/25/17 04/25/17 04/26/17 11:59 23:59 11:59 Intake Total 1250 1200 1250 Balance 1250 1200 1250 Intake: IV 1200 1100 1200 D5-1/4NS+20 MEQ KCL - 20 1200 1100 1200 meq In 1,000 ml @ 100 mls /hr IV ASDIR [facility] Rx#: [id number] IVPB 50 100 50 Oral 0 0 0 Other: Voiding Method Incontinent Incontinent Incontinent # Unmeasured Voids Void 1 3 2 Bowel Movement Yes No Yes # Bowel Movements 1 1 Active Medications Aspirin (Asa -) 81 mg PO DAILY [facility] Last Admin: 04/26/17 09:23 Dose: Not Given Bupropion HCl (Wellbutrin Xl -) 150 mg PO DAILY [facility] Last Admin: 04/26/17 09:24 Dose: Not Given Calcium Carbonate/Cholecalciferol (Os-Tab 500+D -) 1 tab PO BID [facility] Last Admin: 04/26/17 09:23 Dose: Not Given Cyanocobalamin (Vitamin B12 -) 1,000 mcg PO DAILY [facility] Last Admin: 04/26/17 09:24 Dose: Not Given Duloxetine HCl (Cymbalta -) 20 mg PO HS [facility] Last Admin: 04/25/17 21:46 Dose: 20 mg Ferrous Sulfate (Feosol -) 325 mg PO BIDWM [facility] Last Admin: 04/26/17 09:23 Dose: Not Given Piperacillin/Tazobactam/Dextrose (Zosyn 2.25gm Ivpb (Premix)) 2.25 gm in 50 mls @ 100 mls/hr IVPB Q6H-IV [facility] Last Admin: 04/26/17 09:20 Dose: 100 mls/hr Dextrose/Sodium Chloride (D5-1/4ns+20 Meq Kcl -) 20 meq in 1,000 mls @ 100 mls/ hr IV ASDIR [facility] Last Admin: 04/26/17 11:19 Dose: 100 mls/hr Metoprolol Tartrate (Lopressor -) 25 mg PO TID [facility] Last Admin: 04/26/17 06:13 Dose: Not Given Nystatin (Mycostatin Cream -) 1 applic TP BID [facility] Last Admin: 04/26/17 09:23 Dose: 1 applic Ondansetron HCl (Zofran Injection) 4 mg IVPUSH Q6H PRN PRN Reason: NAUSEA AND/OR VOMITING Senna (Senna -) 2 tab PO HS [facility] Last Admin: 04/25/17 21:52 Dose: Not Given Zinc Sulfate (Orazinc -) 220 mg PO DAILY [facility] Last Admin: 04/26/17 09:23 Dose: Not Given CBC, BMP 04/26/17 08:00 04/26/17 08:00 Physical Exam Constitutional: Yes: awake/comfortable. Neck: Yes: Supple/ no JVD Cardiovascular: Yes: Regular Rate and Rhythm, Tachycardia Respiratory: Yes: CTA Bilaterally Gastrointestinal: Yes: Soft/ non tender. bs + Edema: No Wound/Incision: Yes: Dressing Dry and Intact Neurological: Yes: Other (awake but weak ) a/p s/p hips surgery elevated liver enzymes-- coming down gall bladder sludge pneumonia dehydration cad pleural effusion acute renal insufficiency . HYpernatremia Plan Abx fluids-- change to d5w as na 160 f/u labs overall condition guarded/ poor. surgery/ gi on case No feeding tube/ ngt per directions. pt is dnr/ di serial lfts - monitor will follow. discussed with nursing staff. pt is dnr/di Problem List - Problems (1) Anemia Code(s): D64.9 - ANEMIA, UNSPECIFIED Qualifiers: Anemia type: unspecified type Qualified Code(s): D64.9 - Anemia, unspecified (2) CAD (coronary artery disease) Code(s): I25.10 - ATHSCL HEART DISEASE OF [place] CORONARY ARTERY W/O ANG PCTRS Qualifiers: Coronary Disease-Associated Artery/Lesion type: [place] artery [place] vs. transplanted heart: [place] heart Associated angina: without angina Qualified Code(s): I25.10 - Atherosclerotic heart disease of [place] coronary artery without angina pectoris (3) Dementia Code(s): F03.90 - UNSPECIFIED DEMENTIA WITHOUT BEHAVIORAL DISTURBANCE Qualifiers: Dementia type: unspecified type Dementia behavioral disturbance: without behavioral disturbance Qualified Code(s): F03.90 - Unspecified dementia without behavioral disturbance (4) Diabetes mellitus Code(s): E11.9 - TYPE 2 DIABETES MELLITUS WITHOUT COMPLICATIONS Qualifiers: Diabetes mellitus type: type 2 (5) Hip fracture Code(s): S72.009A - FRACTURE OF UNSP PART OF NECK OF UNSP FEMUR, INIT Qualifiers: Encounter type: subsequent encounter
[2017-04-26] MEDS: DEXTROSE 5%-WATER - 1,000 ML IV SCH (12:43)
--- NOTE | 2017-04-26 13:54 | PN ---
Progress Note, Physician History of Present Illness: Decreased oral intake, lethargic. - Current Medication List Current Medications: Active Medications Aspirin (Asa -) 81 mg PO DAILY [facility] Last Admin: 04/26/17 09:23 Dose: Not Given Bupropion HCl (Wellbutrin Xl -) 150 mg PO DAILY [facility] Last Admin: 04/26/17 09:24 Dose: Not Given Calcium Carbonate/Cholecalciferol (Os-Tab 500+D -) 1 tab PO BID [facility] Last Admin: 04/26/17 09:23 Dose: Not Given Cyanocobalamin (Vitamin B12 -) 1,000 mcg PO DAILY [facility] Last Admin: 04/26/17 09:24 Dose: Not Given Duloxetine HCl (Cymbalta -) 20 mg PO HS [facility] Last Admin: 04/25/17 21:46 Dose: 20 mg Ferrous Sulfate (Feosol -) 325 mg PO BIDWM [facility] Last Admin: 04/26/17 09:23 Dose: Not Given Piperacillin/Tazobactam/Dextrose (Zosyn 2.25gm Ivpb (Premix)) 2.25 gm in 50 mls @ 100 mls/hr IVPB Q6H-IV [facility] Last Admin: 04/26/17 09:20 Dose: 100 mls/hr Dextrose (D5w -) 1,000 mls @ 100 mls/hr IV ASDIR [facility] Last Admin: 04/26/17 12:43 Dose: 100 mls/hr Metoprolol Tartrate (Lopressor -) 25 mg PO TID [facility] Last Admin: 04/26/17 06:13 Dose: Not Given Nystatin (Mycostatin Cream -) 1 applic TP BID [facility] Last Admin: 04/26/17 09:23 Dose: 1 applic Ondansetron HCl (Zofran Injection) 4 mg IVPUSH Q6H PRN PRN Reason: NAUSEA AND/OR VOMITING Senna (Senna -) 2 tab PO HS [facility] Last Admin: 04/25/17 21:52 Dose: Not Given Zinc Sulfate (Orazinc -) 220 mg PO DAILY [facility] Last Admin: 04/26/17 09:23 Dose: Not Given - Objective Vital Signs: Vital Signs Temperature 97.9 F 04/26/17 08:38 Pulse Rate 99 H 04/26/17 08:38 Respiratory Rate 18 04/26/17 08:38 Blood Pressure 108/62 04/26/17 08:38 O2 Sat by Pulse Oximetry (%) 95 04/26/17 08:51 Constitutional: Yes: Cachectic Cardiovascular: Yes: Tachycardia Respiratory: Yes: Regular, Diminished Gastrointestinal: Yes: Normal Bowel Sounds, Soft Edema: No Labs: CBC, BMP 04/26/17 08:00 04/26/17 08:00 INR, PTT INR 1.19 (0.82-1.09) H 04/15/17 01:09 Problem List - Problems (1) Hypertensive cardiomyopathy Code(s): I11.9 - HYPERTENSIVE HEART DISEASE WITHOUT HEART FAILURE; I43 - CARDIOMYOPATHY IN DISEASES CLASSIFIED ELSEWHERE Qualifiers: Heart failure presence: without heart failure Qualified Code(s): I11.9 - Hypertensive heart disease without heart failure; I43 - Cardiomyopathy in diseases classified elsewhere; I43 - Cardiomyopathy in diseases classified elsewhere; I43 - Cardiomyopathy in diseases classified elsewhere; I43 - Cardiomyopathy in diseases classified elsewhere (2) Anemia Code(s): D64.9 - ANEMIA, UNSPECIFIED Qualifiers: Anemia type: unspecified type Qualified Code(s): D64.9 - Anemia, unspecified (3) CAD (coronary artery disease) Code(s): I25.10 - ATHSCL HEART DISEASE OF [place] CORONARY ARTERY W/O ANG PCTRS Qualifiers: Coronary Disease-Associated Artery/Lesion type: [place] artery [place] vs. transplanted heart: [place] heart Associated angina: without angina Qualified Code(s): I25.10 - Atherosclerotic heart disease of [place] coronary artery without angina pectoris (4) Dementia Code(s): F03.90 - UNSPECIFIED DEMENTIA WITHOUT BEHAVIORAL DISTURBANCE Qualifiers: Dementia type: unspecified type Dementia behavioral disturbance: without behavioral disturbance Qualified Code(s): F03.90 - Unspecified dementia without behavioral disturbance (5) Diabetes mellitus Code(s): E11.9 - TYPE 2 DIABETES MELLITUS WITHOUT COMPLICATIONS Qualifiers: Diabetes mellitus type: type 2 (6) HLD (hyperlipidemia) Code(s): E78.5 - HYPERLIPIDEMIA, UNSPECIFIED Qualifiers: Hyperlipidemia type: pure hypercholesterolemia Qualified Code(s): E78.00 - Pure hypercholesterolemia, unspecified; E78.0 - Pure hypercholesterolemia (7) Hip fracture Code(s): S72.009A - FRACTURE OF UNSP PART OF NECK OF UNSP FEMUR, INIT Qualifiers: Encounter type: subsequent encounter (8) Ischemic heart disease due to coronary artery obstruction Code(s): I24.0 - ACUTE CORONARY THROMBOSIS NOT RESULTING IN MYOCARDIAL INFRC (9) Abnormal LFTs Code(s): R79.89 - OTHER SPECIFIED ABNORMAL FINDINGS OF BLOOD CHEMISTRY (10) DVT prophylaxis Code(s): [id number] - (11) Hypernatremia Code(s): E87.0 - HYPEROSMOLALITY AND HYPERNATREMIA (12) Dysphagia Code(s): R13.10 - DYSPHAGIA, UNSPECIFIED Qualifiers: Dysphagia type: unspecified Qualified Code(s): R13.10 - Dysphagia, unspecified (13) Hypokalemia Code(s): E87.6 - HYPOKALEMIA Assessment/Plan 1. Post left hip IM nail 2. Anemia 3. Hypokalemia 4. HTN 5. CAD, angina pectoris 6. Hyperlipidemia 7. Dementia 8. Anemia 9. Abnormal LFT with GB sludge improving 10. Hypernatremia PLAN: 1. Free water repletion with monitor Na 2. Continue ASA 81 qd and Lopressor 25 tid if oral intake established. Altace 2.5 qd and Lasix held 3. DVT prophylaxis, NGT or PEG declined by health care proxy 4. Complete abx course 5. DNR/DNI, poor prognosis without nutrition
[2017-04-26] MEDS: DULoxetine HCL 20 MG CAPSULE.DR (FP) PO SCH (21:55)
[2017-04-26] MEDS: SENNOSIDES 8.6MG TABLET (FP) PO SCH (21:56)
[2017-04-27] MEDS: DEXTROSE 5%-WATER - 1,000 ML IV SCH ×3 (02:00→14:38)
[2017-04-27] MEDS: PIPERACILLIN/TAZOB 2.25 GM 2.25 GM/50 ML BAG IVPB SCH ×4 (02:39→22:21)
[2017-04-27] MEDS: METOPROLOL TARTRATE 25 MG TABLET (FP) PO SCH ×3 (06:16→22:21)
[2017-04-27 08:55] LABS: BASO % 0.6 % (0-2.0); EOS % 3.4 % (0-4.5); HEMATOCRIT 31.8 % (35.4-49); HEMOGLOBIN 9.8 GM/dL (11.7-16.9); LYMPH % 18.6 % (8-40); MCHC 30.9 g/dl (32.0-35.9); MEAN PLT VOLUME 9.7 fl (7.5-11.1); MONO % 3.3 % (3.8-10.2); NEUT % 74.1 % (42.8-82.8); PLATELET COUNT 155 K/MM3 (134-434); RBC 3.28 M/mm3 (4.00-5.60); RDW 18.8 % (11.9-15.9); WHITE BLOOD COUNT 10.7 K/mm3 (4.0-10.0)
[2017-04-27 09:20] LABS: ALBUMIN 1.8 g/dl (3.4-5.0); ANION GAP 11 (8-16); BLOOD UREA NITROGEN 17 mg/dL (7-18); CALCIUM 7.9 mg/dL (8.5-10.1); CHLORIDE 127 mmol/L (98-107); CO2 17 mmol/L (21-32); GLUCOSE,RANDOM 94 mg/dL (74-106); SODIUM 155 mmol/L (136-145)
[2017-04-27 09:25] LABS: ALK PHOS 149 U/L (45-117); BILIRUBIN,TOTAL 2.2 mg/dL (0.2-1.0); CREATININE 0.9 mg/dL (0.7-1.3); SGPT/ALT 245 U/L (12-78); TOT PROT 4.8 g/dl (6.4-8.2)
[2017-04-27] MEDS: ASPIRIN 81 MG CHEWABLE TABLETS PO SCH (09:36)
[2017-04-27] MEDS: FERROUS SO4 325 MG TABLET (FP) PO SCH ×2 (09:36→17:19)
[2017-04-27] MEDS: NYSTATIN 100,000 UNIT/GM TOPICAL CREAM 15 GM TUBE TP SCH ×2 (09:37→22:21)
[2017-04-27] MEDS: ZINC SULFATE 220 MG CAPSULE (FP) PO SCH (09:37)
[2017-04-27] MEDS: CYANOCOBALAMIN 1,000 MCG TABLET (FP) PO SCH (09:38)
[2017-04-27] MEDS: CALCIUM 500MG/VIT-D 200 UNITS COMBO TABLET (FP) PO SCH ×2 (09:38→22:22)
--- NOTE | 2017-04-27 10:14 | PN ---
Progress Note (short form) - Note Progress Note: patient's overall condition same lethargic Mucosa dry On IV fluids Healthcare proxy/patient's wishes--- do not allow NG feed or parenteral nutrition. They are considering[facility] Discussed with Jil also today. Vital Signs Temp 98.3 F 04/27/17 06:00 Pulse 78 04/27/17 06:00 Resp 20 04/27/17 06:00 BP 96/53 04/27/17 06:00 Pulse Ox 96 04/26/17 20:11 Intake & Output 04/26/17 04/26/17 04/27/17 11:59 23:59 11:59 Intake Total 1250 1500 1250 Balance 1250 1500 1250 Intake: IV 1200 1200 1200 D5-1/4NS+20 MEQ KCL - 20 1200 500 meq In 1,000 ml @ 100 mls /hr IV [facility] Rx#: [id number] D5w - 1,000 ml @ 100 mls/ 700 1200 hr IV [facility] Rx#: [id number] IVPB 50 100 50 Oral 0 200 Other: Voiding Method Incontinent Incontinent # Unmeasured Voids Void 2 3 2 Bowel Movement Yes No Yes: small # Bowel Movements 1 1 1 Active Medications Aspirin (Asa -) 81 mg PO DAILY [facility] Last Admin: 04/27/17 09:36 Dose: Not Given Bupropion HCl (Wellbutrin Xl -) 150 mg PO DAILY [facility] Last Admin: 04/27/17 09:38 Dose: Not Given Calcium Carbonate/Cholecalciferol (Os-Tab 500+D -) 1 tab PO BID [facility] Last Admin: 04/27/17 09:38 Dose: Not Given Cyanocobalamin (Vitamin B12 -) 1,000 mcg PO DAILY [facility] Last Admin: 04/27/17 09:38 Dose: Not Given Duloxetine HCl (Cymbalta -) 20 mg PO HS [facility] Last Admin: 04/26/17 21:55 Dose: 20 mg Ferrous Sulfate (Feosol -) 325 mg PO BIDWM [facility] Last Admin: 04/27/17 09:36 Dose: Not Given Piperacillin/Tazobactam/Dextrose (Zosyn 2.25gm Ivpb (Premix)) 2.25 gm in 50 mls @ 100 mls/hr IVPB Q6H-IV [facility] Last Admin: 04/27/17 09:35 Dose: 100 mls/hr Dextrose (D5w -) 1,000 mls @ 100 mls/hr IV [facility] Last Admin: 04/27/17 02:00 Dose: 100 mls/hr Metoprolol Tartrate (Lopressor -) 25 mg PO TID [facility] Last Admin: 04/27/17 06:16 Dose: Not Given Nystatin (Mycostatin Cream -) 1 applic TP BID [facility] Last Admin: 04/27/17 09:37 Dose: 1 applic Ondansetron HCl (Zofran Injection) 4 mg IVPUSH Q6H PRN PRN Reason: NAUSEA AND/OR VOMITING Senna (Senna -) 2 tab PO HS [facility] Last Admin: 04/26/17 21:56 Dose: Not Given Zinc Sulfate (Orazinc -) 220 mg PO DAILY [facility] Last Admin: 04/27/17 09:37 Dose: Not Given CBC, BMP 04/27/17 08:15 CMP--pending Physical Exam Constitutional: Yes: awake/lethargic Neck: Yes: Supple/ no JVD mucosa--- dry Cardiovascular: Yes: Regular Rate and Rhythm, Tachycardia Respiratory: Yes: CTA Bilaterally Gastrointestinal: Yes: Soft/ non tender. bs + Edema: No Wound/Incision: Yes: Dressing Dry and Intact Neurological: Yes: Other (awake but weak ) a/p s/p hips surgery elevated liver enzymes-- coming down gall bladder sludge pneumonia dehydration cad pleural effusion acute renal insufficiency . HYpernatremia Plan Abx fluids-- f/u labs overall condition guarded/ poor. No feeding tube/ ngt per directions. pt is dnr/ di serial lfts - trending down monitor family considering hospice pt is dnr/di we will follow Problem List - Problems (1) Anemia Code(s): D64.9 - ANEMIA, UNSPECIFIED Qualifiers: Anemia type: unspecified type Qualified Code(s): D64.9 - Anemia, unspecified (2) CAD (coronary artery disease) Code(s): I25.10 - ATHSCL HEART DISEASE OF [place] CORONARY ARTERY W/O ANG PCTRS Qualifiers: Coronary Disease-Associated Artery/Lesion type: [place] artery [place] vs. transplanted heart: [place] heart Associated angina: without angina Qualified Code(s): I25.10 - Atherosclerotic heart disease of [place] coronary artery without angina pectoris (3) Dementia Code(s): F03.90 - UNSPECIFIED DEMENTIA WITHOUT BEHAVIORAL DISTURBANCE Qualifiers: Dementia type: unspecified type Dementia behavioral disturbance: without behavioral disturbance Qualified Code(s): F03.90 - Unspecified dementia without behavioral disturbance (4) Diabetes mellitus Code(s): E11.9 - TYPE 2 DIABETES MELLITUS WITHOUT COMPLICATIONS Qualifiers: Diabetes mellitus type: type 2 (5) Hip fracture Code(s): S72.009A - FRACTURE OF UNSP PART OF NECK OF UNSP FEMUR, INIT Qualifiers: Encounter type: subsequent encounter
[2017-04-27 10:16] LABS: POTASSIUM 3.3 mmol/L (3.5-5.1)
[2017-04-27] MEDS ORDERED: KCL 10 MEQ IVPB 10 MEQ/100 ML INFUS.BAG IVPB SCH (10:30)
[2017-04-27] MEDS ORDERED: POTASSIUM CHLORIDE 20 MEQ in SODIUM CHLORIDE 250 ML IVPB ONE (11:00)
--- NOTE | 2017-04-27 11:12 | PN ---
Progress Note, Physician History of Present Illness: Decreased oral intake, lethargic. - Current Medication List Current Medications: Active Medications Aspirin (Asa -) 81 mg PO DAILY [facility] Last Admin: 04/27/17 09:36 Dose: Not Given Bupropion HCl (Wellbutrin Xl -) 150 mg PO DAILY [facility] Last Admin: 04/27/17 09:38 Dose: Not Given Calcium Carbonate/Cholecalciferol (Os-Tab 500+D -) 1 tab PO BID [facility] Last Admin: 04/27/17 09:38 Dose: Not Given Cyanocobalamin (Vitamin B12 -) 1,000 mcg PO DAILY [facility] Last Admin: 04/27/17 09:38 Dose: Not Given Duloxetine HCl (Cymbalta -) 20 mg PO [facility] Last Admin: 04/26/17 21:55 Dose: 20 mg Ferrous Sulfate (Feosol -) 325 mg PO BIDWM [facility] Last Admin: 04/27/17 09:36 Dose: Not Given Piperacillin/Tazobactam/Dextrose (Zosyn 2.25gm Ivpb (Premix)) 2.25 gm in 50 mls @ 100 mls/hr IVPB Q6H-IV [facility] Last Admin: 04/27/17 09:35 Dose: 100 mls/hr Dextrose (D5w -) 1,000 mls @ 100 mls/hr IV ASDIR [facility] Last Admin: 04/27/17 11:06 Dose: 100 mls/hr Potassium Chloride 20 meq/ (Sodium Chloride) 260 mls @ 130 mls/hr IVPB ONCE ONE Stop: 04/27/17 12:59 Metoprolol Tartrate (Lopressor -) 25 mg PO TID [facility] Last Admin: 04/27/17 06:16 Dose: Not Given Nystatin (Mycostatin Cream -) 1 applic TP BID [facility] Last Admin: 04/27/17 09:37 Dose: 1 applic Ondansetron HCl (Zofran Injection) 4 mg IVPUSH Q6H PRN PRN Reason: NAUSEA AND/OR VOMITING Senna (Senna -) 2 tab PO HS [facility] Last Admin: 04/26/17 21:56 Dose: Not Given Zinc Sulfate (Orazinc -) 220 mg PO DAILY [facility] Last Admin: 04/27/17 09:37 Dose: Not Given - Objective Vital Signs: Vital Signs Temperature 98.3 F 04/27/17 06:00 Pulse Rate 78 04/27/17 06:00 Respiratory Rate 20 04/27/17 06:00 Blood Pressure 96/53 04/27/17 06:00 O2 Sat by Pulse Oximetry (%) 96 04/26/17 20:11 Constitutional: Yes: Cachectic Cardiovascular: Yes: Tachycardia Respiratory: Yes: Regular, Diminished Gastrointestinal: Yes: Soft, Hypoactive Bowel Sounds Edema: No Labs: CBC, BMP 04/27/17 08:15 04/27/17 08:15 INR, PTT INR 1.19 (0.82-1.09) H 04/15/17 01:09 Problem List - Problems (1) Hypertensive cardiomyopathy Code(s): I11.9 - HYPERTENSIVE HEART DISEASE WITHOUT HEART FAILURE; I43 - CARDIOMYOPATHY IN DISEASES CLASSIFIED ELSEWHERE Qualifiers: Heart failure presence: without heart failure Qualified Code(s): I11.9 - Hypertensive heart disease without heart failure; I43 - Cardiomyopathy in diseases classified elsewhere; I43 - Cardiomyopathy in diseases classified elsewhere; I43 - Cardiomyopathy in diseases classified elsewhere; I43 - Cardiomyopathy in diseases classified elsewhere (2) Anemia Code(s): D64.9 - ANEMIA, UNSPECIFIED Qualifiers: Anemia type: unspecified type Qualified Code(s): D64.9 - Anemia, unspecified (3) CAD (coronary artery disease) Code(s): I25.10 - ATHSCL HEART DISEASE OF [place] CORONARY ARTERY W/O ANG PCTRS Qualifiers: Coronary Disease-Associated Artery/Lesion type: [place] artery [place] vs. transplanted heart: [place] heart Associated angina: without angina Qualified Code(s): I25.10 - Atherosclerotic heart disease of [place] coronary artery without angina pectoris (4) Dementia Code(s): F03.90 - UNSPECIFIED DEMENTIA WITHOUT BEHAVIORAL DISTURBANCE Qualifiers: Dementia type: unspecified type Dementia behavioral disturbance: without behavioral disturbance Qualified Code(s): F03.90 - Unspecified dementia without behavioral disturbance (5) Diabetes mellitus Code(s): E11.9 - TYPE 2 DIABETES MELLITUS WITHOUT COMPLICATIONS Qualifiers: Diabetes mellitus type: type 2 (6) HLD (hyperlipidemia) Code(s): E78.5 - HYPERLIPIDEMIA, UNSPECIFIED Qualifiers: Hyperlipidemia type: pure hypercholesterolemia Qualified Code(s): E78.00 - Pure hypercholesterolemia, unspecified; E78.0 - Pure hypercholesterolemia (7) Hip fracture Code(s): S72.009A - FRACTURE OF UNSP PART OF NECK OF UNSP FEMUR, INIT Qualifiers: Encounter type: subsequent encounter (8) Ischemic heart disease due to coronary artery obstruction Code(s): I24.0 - ACUTE CORONARY THROMBOSIS NOT RESULTING IN MYOCARDIAL INFRC (9) Abnormal LFTs Code(s): R79.89 - OTHER SPECIFIED ABNORMAL FINDINGS OF BLOOD CHEMISTRY (10) DVT prophylaxis Code(s): [id number] - (11) Hypernatremia Code(s): E87.0 - HYPEROSMOLALITY AND HYPERNATREMIA (12) Dysphagia Code(s): R13.10 - DYSPHAGIA, UNSPECIFIED Qualifiers: Dysphagia type: unspecified Qualified Code(s): R13.10 - Dysphagia, unspecified (13) Hypokalemia Code(s): E87.6 - HYPOKALEMIA (14) Anorexia Code(s): R63.0 - ANOREXIA Assessment/Plan 1. Post left hip IM nail 2. Anemia 3. Hypokalemia 4. HTN 5. CAD, angina pectoris 6. Hyperlipidemia 7. Dementia 8. Anemia 9. Abnormal LFT with GB sludge improving 10. Hypernatremia improving PLAN: 1. Free water repletion with monitor Na and K repletion as you are 2. Continue ASA 81 qd and Lopressor 25 tid if oral intake established. Altace 2.5 qd and Lasix held 3. DVT prophylaxis, NGT or PEG declined by health care proxy 4. Complete abx course 5. DNR/DNI, poor prognosis without nutrition
[2017-04-27 11:35] LABS: SGOT/AST 68 U/L (15-37)
--- NOTE | 2017-04-27 11:38 | PN ---
Progress Note, Physician History of Present Illness: patient lethargic looks like nutrition main issue - Current Medication List Current Medications: Active Medications Aspirin (Asa -) 81 mg PO DAILY [facility] Last Admin: 04/27/17 09:36 Dose: Not Given Bupropion HCl (Wellbutrin Xl -) 150 mg PO DAILY [facility] Last Admin: 04/27/17 09:38 Dose: Not Given Calcium Carbonate/Cholecalciferol (Os-Tab 500+D -) 1 tab PO BID [facility] Last Admin: 04/27/17 09:38 Dose: Not Given Cyanocobalamin (Vitamin B12 -) 1,000 mcg PO DAILY [facility] Last Admin: 04/27/17 09:38 Dose: Not Given Duloxetine HCl (Cymbalta -) 20 mg PO [facility] Last Admin: 04/26/17 21:55 Dose: 20 mg Ferrous Sulfate (Feosol -) 325 mg PO BIDWM [facility] Last Admin: 04/27/17 09:36 Dose: Not Given Piperacillin/Tazobactam/Dextrose (Zosyn 2.25gm Ivpb (Premix)) 2.25 gm in 50 mls @ 100 mls/hr IVPB Q6H-IV [facility] Last Admin: 04/27/17 09:35 Dose: 100 mls/hr Dextrose (D5w -) 1,000 mls @ 100 mls/hr IV ASDIR [facility] Last Admin: 04/27/17 11:06 Dose: 100 mls/hr Potassium Chloride 20 meq/ (Sodium Chloride) 260 mls @ 130 mls/hr IVPB ONCE ONE Stop: 04/27/17 12:59 Last Admin: 04/27/17 11:27 Dose: 130 mls/hr Metoprolol Tartrate (Lopressor -) 25 mg PO TID [facility] Last Admin: 04/27/17 06:16 Dose: Not Given Nystatin (Mycostatin Cream -) 1 applic TP BID [facility] Last Admin: 04/27/17 09:37 Dose: 1 applic Nystatin (Nystatin Oral Suspension -) 500,000 units PO Q6HPO [facility] Ondansetron HCl (Zofran Injection) 4 mg IVPUSH Q6H PRN PRN Reason: NAUSEA AND/OR VOMITING Senna (Senna -) 2 tab PO [facility] Last Admin: 04/26/17 21:56 Dose: Not Given Zinc Sulfate (Orazinc -) 220 mg PO DAILY [facility] Last Admin: 04/27/17 09:37 Dose: Not Given - Objective Vital Signs: Vital Signs Temperature 98.3 F 04/27/17 06:00 Pulse Rate 78 04/27/17 06:00 Respiratory Rate 20 04/27/17 06:00 Blood Pressure 96/53 04/27/17 06:00 O2 Sat by Pulse Oximetry (%) 96 04/26/17 20:11 Constitutional: Yes: Calm HENT: Yes: Thrush Cardiovascular: Yes: Regular Rate and Rhythm Respiratory: Yes: Regular, CTA Bilaterally Gastrointestinal: Yes: Normal Bowel Sounds, Soft Musculoskeletal: Yes: Other Extremities: Yes: Other Neurological: Yes: Alert, Other Psychiatric: Yes: Alert Labs: CBC, BMP 04/27/17 08:15 04/27/17 08:15 INR, PTT INR 1.19 (0.82-1.09) H 04/15/17 01:09 Assessment/Plan after looking at the patient i think there are two process going on Problem List - Problems (1) Anemia Code(s): D64.9 - ANEMIA, UNSPECIFIED Qualifiers: Anemia type: unspecified type Qualified Code(s): D64.9 - Anemia, unspecified (2) CAD (coronary artery disease) Code(s): I25.10 - ATHSCL HEART DISEASE OF [place] CORONARY ARTERY W/O ANG PCTRS Qualifiers: Coronary Disease-Associated Artery/Lesion type: [place] artery [place] vs. transplanted heart: [place] heart Associated angina: without angina Qualified Code(s): I25.10 - Atherosclerotic heart disease of [place] coronary artery without angina pectoris (3) Dementia Code(s): F03.90 - UNSPECIFIED DEMENTIA WITHOUT BEHAVIORAL DISTURBANCE Qualifiers: Dementia type: unspecified type Dementia behavioral disturbance: without behavioral disturbance Qualified Code(s): F03.90 - Unspecified dementia without behavioral disturbance (4) Diabetes mellitus Code(s): E11.9 - TYPE 2 DIABETES MELLITUS WITHOUT COMPLICATIONS Qualifiers: Diabetes mellitus type: type 2 (5) Hip fracture Code(s): S72.009A - FRACTURE OF UNSP PART OF NECK OF UNSP FEMUR, INIT Qualifiers: Encounter type: subsequent encounter pneumonia gall bladder sludge onchomycosis thrush plan continue abx wbc trending down continue supportive nutrition nystatin swish and spit
[2017-04-27] MEDS: NYSTATIN 500,000 UNITS/5 ML SUSPENSION PO SCH ×3 (14:38→23:46)
[2017-04-27] MEDS: DULoxetine HCL 20 MG CAPSULE.DR (FP) PO SCH (22:21)
[2017-04-27] MEDS: SENNOSIDES 8.6MG TABLET (FP) PO SCH (22:22)
[2017-04-28] MEDS: PIPERACILLIN/TAZOB 2.25 GM 2.25 GM/50 ML BAG IVPB SCH ×2 (02:34→09:57)
[2017-04-28] MEDS: METOPROLOL TARTRATE 25 MG TABLET (FP) PO SCH ×3 (06:04→22:22)
[2017-04-28] MEDS: NYSTATIN 500,000 UNITS/5 ML SUSPENSION PO SCH ×4 (06:04→23:03)
[2017-04-28] MEDS ORDERED: METOPROLOL TARTRATE 5 MG/5 ML VIAL IVPB ONE (07:02)
[2017-04-28] MEDS ORDERED: METOPROLOL TARTRATE 5 MG/5 ML VIAL IVPUSH ONE ×2 (07:15→12:00)
--- NOTE | 2017-04-28 07:16 | HOSP ---
Subjective - Review of Symptoms Events since last encounter: Hospitalist Encounter Notified by the primary RN, that the patient's HR has been 135 for one hour. The patient has not been on his Metoprolol secondary to Dysphagia. A/P This is a 82 y/o male with Dementia, CAD, HTN, HLD, Cardiomyopathy. Admitted for left hip Fx, Hypokalemia, Anemia Informed the nursing structural mill supervisor, for a cardiac bed. Will transfer patient to Telemetry Stat- EKG Stat-Metoprolol IV Informed Day Team- ETCHED CIRCUIT PROCESSOR Eitan who will follow up Physical Examination Vital Signs: Vital Signs Temperature 97.7 F 04/28/17 05:56 Pulse Rate 134 H 04/28/17 06:00 Respiratory Rate 18 04/28/17 05:56 Blood Pressure 140/80 04/28/17 05:56 O2 Sat by Pulse Oximetry (%) 96 04/27/17 21:00 Labs: CBC, BMP 04/27/17 08:15 04/27/17 08:15 Current Medications Generic Name Dose Route Start Last Admin Trade Name Freq PRN Reason Stop Dose Admin Aspirin 81 mg 04/18/17 18:00 04/27/17 09:36 Asa - PO Not Given DAILY [facility] Bupropion HCl 150 mg 04/17/17 10:00 04/27/17 09:38 Wellbutrin Xl - PO Not Given DAILY [facility] Calcium Carbonate/Cholecalciferol 1 tab 04/16/17 22:00 04/27/17 22:22 Os-Tab 500+D - PO Not Given BID [facility] Cyanocobalamin 1,000 mcg 04/17/17 10:00 04/27/17 09:38 Vitamin B12 - PO Not Given DAILY [facility] Duloxetine HCl 20 mg 04/16/17 22:00 04/27/17 22:21 Cymbalta - PO Not Given HS [facility] Ferrous Sulfate 325 mg 04/16/17 17:30 04/27/17 17:19 Feosol - PO Not Given BIDWM [facility] Piperacillin/Tazobactam/Dextrose 2.25 gm in 50 mls @ 100 mls/hr 04/21/17 15: 00 04/28/17 02:34 Zosyn 2.25gm Ivpb (Premix) IVPB 100 mls/hr Q6H-IV [facility] Administration Dextrose 1,000 mls @ 100 mls/hr 04/26/17 12:30 04/27/17 14:38 D5w - IV Not Given ASDIR [facility] Metoprolol Tartrate 25 mg 04/20/17 14:00 04/28/17 06:04 Lopressor - PO Not Given TID [facility] Nystatin 1 applic 04/21/17 22:00 04/27/17 22:21 Mycostatin Cream - TP Not Given BID [facility] Nystatin 500,000 units 04/27/17 12:00 04/28/17 06:04 Nystatin Oral Suspension - PO Not Given Q6HPO [facility] Ondansetron HCl 4 mg 04/16/17 11:20 Zofran Injection IVPUSH Q6H PRN NAUSEA AND/OR VOMITING Senna 2 tab 04/16/17 22:00 04/27/17 22:22 Senna - PO Not Given HS [facility] Zinc Sulfate 220 mg 04/17/17 10:00 04/27/17 09:37 Orazinc - PO Not Given DAILY [facility] Intake & Output 04/25/17 04/26/17 04/27/17 04/28/17 23:59 23:59 23:59 23:59 Intake Total 2450 2750 2450 Balance 2450 2750 2450
[2017-04-28] MEDS: ZINC SULFATE 220 MG CAPSULE (FP) PO SCH (09:41)
[2017-04-28] MEDS: CYANOCOBALAMIN 1,000 MCG TABLET (FP) PO SCH (09:41)
[2017-04-28] MEDS: ASPIRIN 81 MG CHEWABLE TABLETS PO SCH (09:41)
[2017-04-28] MEDS: CALCIUM 500MG/VIT-D 200 UNITS COMBO TABLET (FP) PO SCH ×2 (09:41→22:22)
[2017-04-28] MEDS: FERROUS SO4 325 MG TABLET (FP) PO SCH ×2 (09:41→16:34)
[2017-04-28] MEDS: NYSTATIN 100,000 UNIT/GM TOPICAL CREAM 15 GM TUBE TP SCH ×2 (09:42→22:42)
[2017-04-28] MEDS ORDERED: morphine CARPU-JECT 10 MG/1 ML DISP.SYRIN IVPUSH PRN ×2 (11:29→11:30)
[2017-04-28] MEDS ORDERED: morphine SULFATE 4 MG/ML VIAL IVPUSH PRN (12:33)
--- NOTE | 2017-04-28 12:40 | PN ---
Progress Note (short form) - Note Progress Note: Events noted transferred to tele last night- due to tachy pt more lethargic/ moderate distress. awaiting response from [facility] comfort care per hcp/family ---brother was earlier here today. Vital Signs Temp 97.7 F 04/28/17 05:56 Pulse 134 H 04/28/17 06:00 Resp 18 04/28/17 05:56 BP 140/80 04/28/17 05:56 Pulse Ox 96 04/27/17 21:00 Intake & Output 04/27/17 04/28/17 04/28/17 23:59 11:59 23:59 Intake Total 1200 Balance 1200 Intake: IV 850 D5w - 1,000 ml @ 100 mls/ 850 hr IV ASDIR [facility] Rx#: [id number] IVPB 350 Other: Voiding Method Incontinent # Unmeasured Voids Void 2 3 Bowel Movement No Active Medications Aspirin (Asa -) 81 mg PO DAILY [facility] Last Admin: 04/28/17 09:41 Dose: Not Given Bupropion HCl (Wellbutrin Xl -) 150 mg PO DAILY [facility] Last Admin: 04/28/17 09:42 Dose: Not Given Calcium Carbonate/Cholecalciferol (Os-Tab 500+D -) 1 tab PO BID [facility] Last Admin: 04/28/17 09:41 Dose: Not Given Cyanocobalamin (Vitamin B12 -) 1,000 mcg PO DAILY [facility] Last Admin: 04/28/17 09:41 Dose: Not Given Duloxetine HCl (Cymbalta -) 20 mg PO HS [facility] Last Admin: 04/27/17 22:21 Dose: Not Given Ferrous Sulfate (Feosol -) 325 mg PO BIDWM [facility] Last Admin: 04/28/17 09:41 Dose: Not Given Piperacillin/Tazobactam/Dextrose (Zosyn 2.25gm Ivpb (Premix)) 2.25 gm in 50 mls @ 100 mls/hr IVPB Q6H-IV [facility] Last Admin: 04/28/17 09:57 Dose: 100 mls/hr Dextrose (D5w -) 1,000 mls @ 100 mls/hr IV ASDIR [facility] Last Admin: 04/27/17 14:38 Dose: Not Given Metoprolol Tartrate (Lopressor -) 25 mg PO TID [facility] Last Admin: 04/28/17 06:04 Dose: Not Given Morphine Sulfate (Morphine Injection -) 2 mg IVPUSH Q4H PRN Last Admin: 04/28/17 11:35 Dose: 2 mg Morphine Sulfate (Morphine Sulfate) 4 mg IVPUSH Q3H PRN PRN Reason: PAIN Nystatin (Mycostatin Cream -) 1 applic TP BID [facility] Last Admin: 04/28/17 09:42 Dose: Not Given Nystatin (Nystatin Oral Suspension -) 500,000 units PO Q6HPO [facility] Last Admin: 04/28/17 12:25 Dose: Not Given Ondansetron HCl (Zofran Injection) 4 mg IVPUSH Q6H PRN PRN Reason: NAUSEA AND/OR VOMITING Senna (Senna -) 2 tab PO HS [facility] Last Admin: 04/27/17 22:22 Dose: Not Given Zinc Sulfate (Orazinc -) 220 mg PO DAILY [facility] Last Admin: 04/28/17 09:41 Dose: Not Given CBC, BMP 04/27/17 08:15 04/27/17 08:15 Physical Exam Constitutional: Yes: lethargic/ weak/ moderate distress Neck: Yes: Supple/ no JVD mucosa--- dry Cardiovascular: Yes: Regular Rate and Rhythm, Tachycardia Respiratory: Yes: CTA Bilaterally Gastrointestinal: Yes: Soft/ non tender. bs + Edema: No Wound/Incision: Yes: Dressing Dry and Intact Neurological: Yes: Other -lethargic / weak/ poorly responsive. a/p s/p hips surgery elevated liver enzymes-- gall bladder sludge pneumonia dehydration cad pleural effusion acute renal insufficiency . Hypernatremia. Plan Discussed with family. comfort care morphine for pain/ discomfort. no more labs. discussed with cardiology/Dr. Alvarenga Discussed with nursing staff also pt is DNR/DI. Problem List - Problems (1) Anemia Code(s): D64.9 - ANEMIA, UNSPECIFIED Qualifiers: Anemia type: unspecified type Qualified Code(s): D64.9 - Anemia, unspecified (2) CAD (coronary artery disease) Code(s): I25.10 - ATHSCL HEART DISEASE OF [place] CORONARY ARTERY W/O ANG PCTRS Qualifiers: Coronary Disease-Associated Artery/Lesion type: [place] artery [place] vs. transplanted heart: [place] heart Associated angina: without angina Qualified Code(s): I25.10 - Atherosclerotic heart disease of [place] coronary artery without angina pectoris (3) Dementia Code(s): F03.90 - UNSPECIFIED DEMENTIA WITHOUT BEHAVIORAL DISTURBANCE Qualifiers: Dementia type: unspecified type Dementia behavioral disturbance: without behavioral disturbance Qualified Code(s): F03.90 - Unspecified dementia without behavioral disturbance (4) Diabetes mellitus Code(s): E11.9 - TYPE 2 DIABETES MELLITUS WITHOUT COMPLICATIONS Qualifiers: Diabetes mellitus type: type 2 (5) Hip fracture Code(s): S72.009A - FRACTURE OF UNSP PART OF NECK OF UNSP FEMUR, INIT Qualifiers: Encounter type: subsequent encounter
[2017-04-28] MEDS: DEXTROSE 5%-WATER - 1,000 ML IV SCH ×2 (13:00→22:30)
--- NOTE | 2017-04-28 13:17 | PN ---
Progress Note, Physician History of Present Illness: Infectious disease f/u: Pt is lethargic, moderate distress. Tmax 99.9F last night, currently afebrile. - Current Medication List Current Medications: Active Medications Aspirin (Asa -) 81 mg PO DAILY [facility] Last Admin: 04/28/17 09:41 Dose: Not Given Bupropion HCl (Wellbutrin Xl -) 150 mg PO DAILY [facility] Last Admin: 04/28/17 09:42 Dose: Not Given Calcium Carbonate/Cholecalciferol (Os-Tab 500+D -) 1 tab PO BID [facility] Last Admin: 04/28/17 09:41 Dose: Not Given Cyanocobalamin (Vitamin B12 -) 1,000 mcg PO DAILY [facility] Last Admin: 04/28/17 09:41 Dose: Not Given Duloxetine HCl (Cymbalta -) 20 mg PO [facility] Last Admin: 04/27/17 22:21 Dose: Not Given Ferrous Sulfate (Feosol -) 325 mg PO BIDWM [facility] Last Admin: 04/28/17 09:41 Dose: Not Given Dextrose (D5w -) 1,000 mls @ 100 mls/hr IV ASDIR [facility] Last Admin: 04/27/17 14:38 Dose: Not Given Piperacillin/Tazobactam/Dextrose (Zosyn 3.375gm Ivpb (Premix)) 50 mls @ 100 mls /hr IVPB Q8H-IV [facility] PRN Reason: Protocol Metoprolol Tartrate (Lopressor -) 25 mg PO TID [facility] Last Admin: 04/28/17 06:04 Dose: Not Given Morphine Sulfate (Morphine Injection -) 2 mg IVPUSH Q4H PRN Last Admin: 04/28/17 11:35 Dose: 2 mg Morphine Sulfate (Morphine Sulfate) 4 mg IVPUSH Q3H PRN PRN Reason: PAIN Nystatin (Mycostatin Cream -) 1 applic TP BID [facility] Last Admin: 04/28/17 09:42 Dose: Not Given Nystatin (Nystatin Oral Suspension -) 500,000 units PO Q6HPO [facility] Last Admin: 04/28/17 12:25 Dose: Not Given Ondansetron HCl (Zofran Injection) 4 mg IVPUSH Q6H PRN PRN Reason: NAUSEA AND/OR VOMITING Senna (Senna -) 2 tab PO [facility] Last Admin: 04/27/17 22:22 Dose: Not Given Zinc Sulfate (Orazinc -) 220 mg PO DAILY [facility] Last Admin: 04/28/17 09:41 Dose: Not Given - Objective Vital Signs: Vital Signs Temperature 97.7 F 04/28/17 05:56 Pulse Rate 134 H 04/28/17 06:00 Respiratory Rate 18 04/28/17 05:56 Blood Pressure 140/80 04/28/17 05:56 O2 Sat by Pulse Oximetry (%) 96 04/27/17 21:00 Constitutional: Yes: Thin Cardiovascular: Yes: Tachycardia Respiratory: Yes: Diminished Gastrointestinal: Yes: Normal Bowel Sounds, Soft Wound/Incision: Yes: Well Approximated (Lt hip sutures intact, no erythema but adjacent ecchymosis) Neurological: Yes: Lethargy Labs: CBC, BMP 04/27/17 08:15 04/27/17 08:15 INR, PTT INR 1.19 (0.82-1.09) H 04/15/17 01:09 Problem List - Problems (1) Pneumonia Code(s): J18.9 - PNEUMONIA, UNSPECIFIED ORGANISM (2) Anorexia Code(s): R63.0 - ANOREXIA (3) CAD (coronary artery disease) Code(s): I25.10 - ATHSCL HEART DISEASE OF [place] CORONARY ARTERY W/O ANG PCTRS Qualifiers: Coronary Disease-Associated Artery/Lesion type: [place] artery [place] vs. transplanted heart: [place] heart Associated angina: without angina Qualified Code(s): I25.10 - Atherosclerotic heart disease of [place] coronary artery without angina pectoris (4) Dementia Code(s): F03.90 - UNSPECIFIED DEMENTIA WITHOUT BEHAVIORAL DISTURBANCE Qualifiers: Dementia type: unspecified type Dementia behavioral disturbance: without behavioral disturbance Qualified Code(s): F03.90 - Unspecified dementia without behavioral disturbance (5) Diabetes mellitus Code(s): E11.9 - TYPE 2 DIABETES MELLITUS WITHOUT COMPLICATIONS Qualifiers: Diabetes mellitus type: type 2 (6) Displaced intertrochanteric fracture of left femur, initial encounter for closed fracture Code(s): S72.142A - DISPLACED INTERTROCHANTERIC FRACTURE OF LEFT FEMUR, INIT (7) Dysphagia Code(s): R13.10 - DYSPHAGIA, UNSPECIFIED Qualifiers: Dysphagia type: unspecified Qualified Code(s): R13.10 - Dysphagia, unspecified (8) HLD (hyperlipidemia) Code(s): E78.5 - HYPERLIPIDEMIA, UNSPECIFIED Qualifiers: Hyperlipidemia type: pure hypercholesterolemia Qualified Code(s): E78.00 - Pure hypercholesterolemia, unspecified; E78.0 - Pure hypercholesterolemia (9) Hip fracture Code(s): S72.009A - FRACTURE OF UNSP PART OF NECK OF UNSP FEMUR, INIT Qualifiers: Encounter type: subsequent encounter Assessment/Plan Pt extremely lethargic wbc trending down, mild temperature elevation last night Blood cultures ordered Improved renal function, will adjust dose of antibiotics continue monitor comfort care
--- NOTE | 2017-04-28 13:24 | EKG ---
Test Reason : Blood Pressure : / mmHG Vent. Rate : 133 BPM Atrial Rate : 133 BPM P-R Int : 172 ms QRS Dur : 138 ms QT Int : 362 ms P-R-T Axes : 073 085 -13 degrees QTc Int : 538 ms SINUS TACHYCARDIA WITH OCCASIONAL PREMATURE VENTRICULAR COMPLEXES RIGHT BUNDLE BRANCH BLOCK T WAVE ABNORMALITY, CONSIDER INFEROLATERAL ISCHEMIA ABNORMAL ECG Confirmed by SORAYA FRANKLIN MD ([id number]) on 04/28/2017 1:24:17 PM Referred By: Confirmed By:SORAYA FRANKLIN MD
--- NOTE | 2017-04-28 15:20 | PN ---
Progress Note, Physician Chief Complaint: Events noted Lethargic History of Present Illness: Patient was seen and examined. Arousable, but lethargic. Chart was reviewed Currently DNR/DNI Tachycardic - Current Medication List Current Medications: Active Medications Aspirin (Asa -) 81 mg PO DAILY [facility] Last Admin: 04/28/17 09:41 Dose: Not Given Bupropion HCl (Wellbutrin Xl -) 150 mg PO DAILY [facility] Last Admin: 04/28/17 09:42 Dose: Not Given Calcium Carbonate/Cholecalciferol (Os-Tab 500+D -) 1 tab PO BID [facility] Last Admin: 04/28/17 09:41 Dose: Not Given Cyanocobalamin (Vitamin B12 -) 1,000 mcg PO DAILY [facility] Last Admin: 04/28/17 09:41 Dose: Not Given Duloxetine HCl (Cymbalta -) 20 mg PO [facility] Last Admin: 04/27/17 22:21 Dose: Not Given Ferrous Sulfate (Feosol -) 325 mg PO BIDWM [facility] Last Admin: 04/28/17 09:41 Dose: Not Given Dextrose (D5w -) 1,000 mls @ 100 mls/hr IV ASDIR [facility] Last Admin: 04/27/17 14:38 Dose: Not Given Piperacillin Sod/Tazobactam (Sod 3.375 gm/ Dextrose) 50 mls @ 100 mls/hr IVPB Q8H-IV [facility] PRN Reason: Protocol Metoprolol Tartrate (Lopressor -) 25 mg PO TID [facility] Last Admin: 04/28/17 13:43 Dose: Not Given Morphine Sulfate (Morphine Injection -) 2 mg IVPUSH Q4H PRN Last Admin: 04/28/17 11:35 Dose: 2 mg Morphine Sulfate (Morphine Sulfate) 4 mg IVPUSH Q3H PRN PRN Reason: PAIN Nystatin (Mycostatin Cream -) 1 applic TP BID [facility] Last Admin: 04/28/17 09:42 Dose: Not Given Nystatin (Nystatin Oral Suspension -) 500,000 units PO Q6HPO [facility] Last Admin: 04/28/17 12:25 Dose: Not Given Ondansetron HCl (Zofran Injection) 4 mg IVPUSH Q6H PRN PRN Reason: NAUSEA AND/OR VOMITING Senna (Senna -) 2 tab PO [facility] Last Admin: 04/27/17 22:22 Dose: Not Given Zinc Sulfate (Orazinc -) 220 mg PO DAILY [facility] Last Admin: 04/28/17 09:41 Dose: Not Given - Objective Vital Signs: Vital Signs Temperature 98.5 F 04/28/17 15:03 Pulse Rate 116 H 04/28/17 15:03 Respiratory Rate 20 04/28/17 15:03 Blood Pressure 106/56 04/28/17 15:03 O2 Sat by Pulse Oximetry (%) 96 04/27/17 21:00 Cardiovascular: Yes: Regular Rate and Rhythm, Tachycardia, S1, S2 Respiratory: Yes: Diminished Gastrointestinal: Yes: Normal Bowel Sounds, Soft. No: Tenderness Edema: No Labs: CBC, BMP 04/27/17 08:15 04/27/17 08:15 Problem List - Problems (1) Anemia Code(s): D64.9 - ANEMIA, UNSPECIFIED Qualifiers: Anemia type: unspecified type Qualified Code(s): D64.9 - Anemia, unspecified (2) CAD (coronary artery disease) Code(s): I25.10 - ATHSCL HEART DISEASE OF [place] CORONARY ARTERY W/O ANG PCTRS Qualifiers: Coronary Disease-Associated Artery/Lesion type: [place] artery [place] vs. transplanted heart: [place] heart Associated angina: without angina Qualified Code(s): I25.10 - Atherosclerotic heart disease of [place] coronary artery without angina pectoris (3) Dementia Code(s): F03.90 - UNSPECIFIED DEMENTIA WITHOUT BEHAVIORAL DISTURBANCE Qualifiers: Dementia type: unspecified type Dementia behavioral disturbance: without behavioral disturbance Qualified Code(s): F03.90 - Unspecified dementia without behavioral disturbance (4) Diabetes mellitus Code(s): E11.9 - TYPE 2 DIABETES MELLITUS WITHOUT COMPLICATIONS Qualifiers: Diabetes mellitus type: type 2 (5) HLD (hyperlipidemia) Code(s): E78.5 - HYPERLIPIDEMIA, UNSPECIFIED Qualifiers: Hyperlipidemia type: pure hypercholesterolemia Qualified Code(s): E78.00 - Pure hypercholesterolemia, unspecified; E78.0 - Pure hypercholesterolemia (6) Hip fracture Code(s): S72.009A - FRACTURE OF UNSP PART OF NECK OF UNSP FEMUR, INIT Qualifiers: Encounter type: subsequent encounter Assessment/Plan 1. Post left hip IM nail 2. Anemia 3. Hypokalemia 4. HTN 5. CAD, angina pectoris 6. Hyperlipidemia 7. Dementia - lethargy 8. Anemia 9. Abnormal LFT with GB sludge 10. Hypernatremia PLAN: 1. Free water repletion with monitor Na and K repletion 2. Continue ASA 81 qd and Lopressor 25 tid if able to take PO. Altace and Lasix held. IV Lopressor if needed 3. DVT prophylaxis, NGT or PEG declined as stated before 4. Complete antibiotic course 5. DNR/DNI, poor prognosis without nutrition, consider hospice Alvin Alvarenga MD
[2017-04-28] MEDS: PIPERACILLIN/TAZOB 3.375 GM 3.375 GM in DEXTROSE 5%-WATER - 100 ML IVPB SCH (17:18)
[2017-04-28] MEDS: SENNOSIDES 8.6MG TABLET (FP) PO SCH (22:22)
[2017-04-28] MEDS: DULoxetine HCL 20 MG CAPSULE.DR (FP) PO SCH (22:22)
[2017-04-29] MEDS ORDERED: PT OWN MED DRAWER 7, Y5N ONE (01:35)
[2017-04-29] MEDS: PIPERACILLIN/TAZOB 3.375 GM 3.375 GM in DEXTROSE 5%-WATER - 100 ML IVPB SCH (01:41)
[2017-04-29 02:00] VITALS: BP 78/38; PULSE 101; TEMP 98.1
--- NOTE | 2017-04-29 02:48 | PN ---
Progress Note (short form) - Note Progress Note: Nursing staff paged me to examine pt at 0234h. Pt unresponsive, even to painful stimuli. Pupils fixed and non-reactive. No corneal reflex present. Pt has no spontaneous breathing, no heart sounds, and no breath sounds auscultated. No carotid or femoral pulses present. Time of pronounced at 0236h on 04/29/2017 Brother Rivera Torres notified by nursing staff Grievance services/post-mortem care offered Body to be released to home Dr. Layne to be notified.
--- NOTE | 2017-04-29 12:02 | DS ---
Physical Examination Vital Signs: Vital Signs Temperature 98.1 F 04/29/17 01:59 Pulse Rate 101 H 04/29/17 01:59 Respiratory Rate 18 04/29/17 01:59 Blood Pressure 78/38 04/29/17 01:59 O2 Sat by Pulse Oximetry (%) 99 04/28/17 21:00 Findings/Remarks: see progress note 04/28/17 Labs: CBC, BMP 04/27/17 08:15 04/27/17 08:15 Discharge Summary Reason For Visit: FRACTURE OF HIP,ANEMIA,HYPOKALEMIA Hospital Course: This is a 82 y/o man with Pmhx from the [facility] to the ED with s/p fall out of wheelchair. found to have left hip fracture underwent surgery post op complicated by not eating well/ devolped gall bladder sludge gi/surgery/ i/d also followed overall condition deteriorated no perentral feeding per hcp. pt condition declined comfort care pt . Condition: - Instructions Referrals: Baldo Brown MD [Primary Care Provider] - Disposition: - Home Medications Comprehensive Discharge Medication List: Ambulatory Orders Ascorbic Acid [Vitamin C] 500 mg PO DAILY 04/15/17 Aspirin 81 mg PO DAILY 04/15/17 Bupropion HCl [Bupropion HCl Sr] 150 mg PO DAILY 04/15/17 Cyanocobalamin [Vitamin B12 -] 1 tab PO DAILY 04/15/17 Duloxetine HCl 20 mg PO HS 04/15/17 Furosemide [Lasix -] 40 mg PO DAILY 04/15/17 Metoprolol Succinate 50 mg PO DAILY 04/15/17 Sennosides [Senna] 2 tab PO HS 04/15/17 Zinc Sulfate 220 mg PO DAILY 04/15/17
== END 2017-04-29 04:30 | disposition expired | DRG 480 ==
LOC: JER 00:19 → JERBED 03:35 → J7W 05:26 → J6S 04-19 17:44 → J4S 04-28 09:07
PROVIDERS: ADMIT Internal Medicine; ATTEND Internal Medicine
PROC: 30233N1 Transfusion of Nonautologous Red Blood Cells into Peripheral Vein, Percutaneous Approach (ICD-10-PCS; 2017-04-15)
PROC: 0QS706Z Reposition Left Upper Femur with Intramedullary Internal Fixation Device, Open Approach (ICD-10-PCS; principal; 2017-04-16 09:16)
DX: S72.142A Displaced intertrochanteric fracture of left femur, initial encounter for closed fracture (principal); J18.9 Pneumonia, unspecified organism; E87.0 Hyperosmolality and hypernatremia; R64 Cachexia; I43 Cardiomyopathy in diseases classified elsewhere; J90 Pleural effusion, not elsewhere classified; W19.XXXA Unspecified fall, initial encounter; Y93.9 Activity, unspecified; Y92.89 Other specified places as the place of occurrence of the external cause; Y99.8 Other external cause status; S72.002A Fracture of unspecified part of neck of left femur, initial encounter for closed fracture; E87.6 Hypokalemia; D64.9 Anemia, unspecified; I25.119 Atherosclerotic heart disease of native coronary artery with unspecified angina pectoris; E78.5 Hyperlipidemia, unspecified; F03.90 Unspecified dementia, unspecified severity, without behavioral disturbance, psychotic disturbance, mood disturbance, and anxiety; E11.9 Type 2 diabetes mellitus without complications; B37.9 Candidiasis, unspecified; Z68.20 Body mass index [BMI] 20.0-20.9, adult; R13.10 Dysphagia, unspecified; R00.0 Tachycardia, unspecified; F09 Unspecified mental disorder due to known physiological condition; I11.9 Hypertensive heart disease without heart failure
CPT/HCPCS: 36415; 36430; 36511; 71010-TC; 71260-TC; 73523-TC; 76000-TC; 76705-TC; 80048; 80053; 80076; 81003; 81015; 82728; 83540; 83550; 83735; 84100; 84443; 85025; 85610; 85730; 86850; 86900; 86901; 86922; 87040; 87086; 93005; 93010; 93306-TC; 94760; 97161-GP; 99282-25; P9038; P9058